=== PATIENT | female | born 1990 | race Caucasian/White ===

== ENCOUNTER 2018-02-06 19:36 | Emergency (ER) | payer OTHER ==
[2018-02-06] MEDS ORDERED: IPRATROPIUM-ALBUTEROL 3 ML NEB INHALATION STA (19:58)
--- NOTE | 2018-02-06 20:03 | ED ---
General Adult HPI - General Source: patient, RN notes reviewed, old records reviewed Mode of arrival: EMS Limitations: no limitations <Denis Duran - Last Filed: 02/06/18 20:32> <Crescencio Boothe - Last Filed: 02/06/18 22:02> - General Chief complaint: Upper Respiratory Infection Stated complaint: bronchitis Time Seen by Provider: 02/06/18 19:39 - History of Present Illness Initial comments: 27-year-old female presents for evaluation of cough and recent diagnosis of bronchitis. She is a current smoker. History is difficult secondary to patient 's mental status. Apparently she initially called Hospital, she spoke with psychiatric nurse who noted some pressured speech and that the patient was incoherent. She was apparently evaluated at several outside hospitals both for mental health and bronchitis. She states her cough is productive of white sputum. No fever. No significant dyspnea or chest pain. Denies suicidal or homicidal ideation. She was previously on Seroquel but has been unable to make an appointment with her psychiatrist. (Denis Duran) - Related Data Home Medications Medication Instructions Recorded Confirmed QUEtiapine FUMARATE [SEROquel] 200 mg PO ONCE 02/06/18 02/06/18 Allergies Allergy/AdvReac Type Severity Reaction Status Date / Time No Known Allergies Allergy Verified 02/06/18 19:51 Review of Systems ROS Other: All systems not noted in ROS Statement are negative. <Denis Duran - Last Filed: 02/06/18 20:32> ROS Other: All systems not noted in ROS Statement are negative. <Crescencio Boothe - Last Filed: 02/06/18 22:02> ROS Statement: Those systems with pertinent positive or pertinent negative responses have been documented in the HPI. Past Medical History Past Medical History: Hypertension Additional Past Medical History / Comment(s): CHRONIC PAIN IN RIGHT LEG - BROKEN AND REPAIRED WITH METAL. History of Any Multi-Drug Resistant Organisms: None Reported Past Surgical History: Orthopedic Surgery Additional Past Surgical History / Comment(s): RIGHT ANKLE/RIGHT LEG Past Anesthesia/Blood Transfusion Reactions: No Reported Reaction Past Psychological History: Anxiety, Bipolar, Depression Smoking Status: Current every day smoker Past Alcohol Use History: Occasional Past Drug Use History: Cocaine, Marijuana, Opiates - Past Family History Father Additional Family Medical History / Comment(s): Father is in his 40s with history of bipolar. He is in [facility] for an armed robbery with also history of alcohol and drug abuse. Brother(s) Additional Family Medical History / Comment(s): Patient has brothers and 2 are incarcerated Mother Family Medical History: Diabetes Mellitus <Denis Duran - Last Filed: 02/06/18 20:32> General Exam Limitations: no limitations General appearance: alert, in no apparent distress Head exam: Present: atraumatic, normocephalic Eye exam: Present: normal appearance, PERRL ENT exam: Present: normal exam Neck exam: Present: normal inspection. Absent: tenderness, meningismus Respiratory exam: Present: wheezes, rhonchi. Absent: respiratory distress, accessory muscle use Cardiovascular Exam: Present: regular rate, normal rhythm GI/Abdominal exam: Present: soft. Absent: distended, tenderness Extremities exam: Present: normal inspection, normal capillary refill. Absent: full ROM, pedal edema, calf tenderness Neurological exam: Present: alert Psychiatric exam: Present: agitated, manic. Absent: suicidal ideation Skin exam: Present: warm, dry, intact. Absent: cyanosis, diaphoretic <Denis Duran - Last Filed: 02/06/18 20:32> Course <Denis Duran - Last Filed: 02/06/18 20:32> <Crescencio Boothe - Last Filed: 02/06/18 22:02> Vital Signs 02/06/18 02/06/18 02/06/18 19:40 20:11 20:19 Temperature 97.3 F L Pulse Rate 68 100 94 Respiratory 20 18 18 Rate Blood Pressure 152/92 O2 Sat by Pulse 98 Oximetry 02/06/18 21:30 Temperature Pulse Rate Respiratory 18 Rate Blood Pressure O2 Sat by Pulse Oximetry - Reevaluation(s) Reevaluation #1: 02/06/18 20:32 Patient continues to have pressured speech, incoherent thoughts. Contact was made with the patient's mother she will present for further information regarding the patient's condition. She will be evaluated by EPS. (Denis Duran) Reevaluation #2: 02/06/18 2100 Patient's care is signed out at shift change awaiting EPS evaluation. (Denis Duran) - Lab Data Lab Results 02/06/18 Range/Units 21:00 Urine Opiates Screen Detected H (NotDetected) Ur Oxycodone Screen Not Detected (NotDetected) Urine Methadone Screen Not Detected (NotDetected) Ur Propoxyphene Screen Not Detected (NotDetected) Ur Barbiturates Screen Not Detected (NotDetected) U Tricyclic Antidepress Not Detected (NotDetected) Ur Phencyclidine Scrn Not Detected (NotDetected) Ur Amphetamines Screen Not Detected (NotDetected) U Methamphetamines Scrn Not Detected (NotDetected) U Benzodiazepines Scrn Not Detected (NotDetected) Urine Cocaine Screen Detected H (NotDetected) U Marijuana (THC) Screen Not Detected (NotDetected) Disposition <Denis Duran - Last Filed: 02/06/18 20:32> Is patient prescribed a controlled substance at d/c from ED?: No <Crescencio Boothe - Last Filed: 02/06/18 22:02> Clinical Impression: Bronchitis, Psychosis Disposition: HOME SELF-CARE Condition: Good Instructions: Upper Respiratory Infection (ED) Referrals: [facility] [Primary Care Provider] - 1-2 days
[2018-02-06 20:14] VITALS: RESP 18
[2018-02-06 21:17] LABS: Amphetamine Screen,Urine Not Detected (NotDetected); Barbiturate Screen,Urine Not Detected (NotDetected); Benzodiazepines Screen,Urine Not Detected (NotDetected); Cocaine Screen,Urine Detected (NotDetected); Methadone Screen, Urine Not Detected (NotDetected); Opiate Screen,Urine Detected (NotDetected); Oxycodone Screen, Urine Not Detected (NotDetected); Phencyclidine Screen,Urine Not Detected (NotDetected); Tricyclic Antidepressant,Urine Not Detected (NotDetected); Urn Cannabinoid Scrn Not Detected (NotDetected)
[2018-02-06 22:26] VITALS: BP 168/99; PULSE 99; TEMP 97.8
== END 2018-02-06 22:25 | disposition home or self-care (01) ==
LOC: EC 19:36
DX: J40 Bronchitis, not specified as acute or chronic (principal); F29 Unspecified psychosis not due to a substance or known physiological condition; F41.9 Anxiety disorder, unspecified; F32.9 Major depressive disorder, single episode, unspecified; F17.200 Nicotine dependence, unspecified, uncomplicated; Z79.899 Other long term (current) drug therapy
CPT/HCPCS: 80306; 82075; 94640; 99284

== ENCOUNTER 2018-03-05 12:32 | Inpatient (IN) | payer MEDICAID, OTHER ==
[2018-03-05 13:58] LABS: Appearance,Urine Cloudy (Clear); Bacteria,Urine Moderate /hpf; Bilirubin,Urine Negative (Negative); Blood,Urine Large (Negative); Color,Urine Light Red; Glucose,Urine (UA) Negative (Negative); Ketones,Urine Negative (Negative); Leukocyte Esterase,Urine Moderate (Negative); Mucus,Urine Many /hpf; Nitrite,Urine Negative (Negative); Protein,Urine 1+ (Negative); RBC,Urine >182 /hpf (0-5); Specific Gravity,Urine 1.018 (1.001-1.035); Squamous Epithelial Cell,Urine 8 /hpf (0-4); Urobilinogen,Urine <2.0 mg/dL (<2.0); WBC,Urine 32 /hpf (0-5)
[2018-03-05 14:10] LABS: Cocaine Screen,Urine Detected (NotDetected); Phencyclidine Screen,Urine Not Detected (NotDetected); Urn Cannabinoid Scrn Not Detected (NotDetected)
[2018-03-05 14:11] LABS: Amphetamine Screen,Urine Detected (NotDetected); Barbiturate Screen,Urine Not Detected (NotDetected); Benzodiazepines Screen,Urine Not Detected (NotDetected); Methadone Screen, Urine Not Detected (NotDetected); Opiate Screen,Urine Not Detected (NotDetected); Oxycodone Screen, Urine Not Detected (NotDetected); Tricyclic Antidepressant,Urine Detected (NotDetected)
[2018-03-05] MEDS ORDERED: LORazepam 1 MG TAB PO STA (14:12)
--- NOTE | 2018-03-05 14:41 | ED ---
General Adult HPI - General Chief complaint: Psychiatric Symptoms Stated complaint: Mental Health Time Seen by Provider: 03/05/18 12:55 Source: patient, RN notes reviewed, old records reviewed Mode of arrival: ambulatory Limitations: no limitations - History of Present Illness Initial comments: This is a 27-year-old female the ER for eval is regarding mental health. Patient having word salad not making sense 7 delusions. Patient is brought in for evaluation regarding psychiatric illness - Related Data Home Medications Medication Instructions Recorded Confirmed Acetaminophen Tab [Tylenol Tab] 650 mg PO Q6H PRN 03/05/18 03/05/18 Cholecalciferol [Vitamin D3] 5,000 unit PO DAILY 03/05/18 03/05/18 Cyanocobalamin [Vitamin B-12 1,000 mcg SQ WEEKLY 03/05/18 03/05/18 Injection] Lisinopril [Zestril] 10 mg PO DAILY 03/05/18 03/05/18 Naproxen 500 mg PO DAILY 03/05/18 03/05/18 Allergies Allergy/AdvReac Type Severity Reaction Status Date / Time No Known Allergies Allergy Verified 03/05/18 12:50 Review of Systems ROS Statement: Those systems with pertinent positive or pertinent negative responses have been documented in the HPI. ROS Other: All systems not noted in ROS Statement are negative. Past Medical History Past Medical History: Hypertension Additional Past Medical History / Comment(s): CHRONIC PAIN IN RIGHT LEG - BROKEN AND REPAIRED WITH METAL. History of Any Multi-Drug Resistant Organisms: None Reported Past Surgical History: Orthopedic Surgery Additional Past Surgical History / Comment(s): RIGHT ANKLE/RIGHT LEG Past Anesthesia/Blood Transfusion Reactions: No Reported Reaction Past Psychological History: Anxiety, Bipolar, Depression Smoking Status: Current every day smoker Past Alcohol Use History: Occasional Past Drug Use History: Cocaine, Marijuana, Opiates - Past Family History Father Additional Family Medical History / Comment(s): Father is in his 40s with history of bipolar. He is in [facility] for an armed robbery with also history of alcohol and drug abuse. Brother(s) Additional Family Medical History / Comment(s): Patient has brothers and 2 are incarcerated Mother Family Medical History: Diabetes Mellitus General Exam Limitations: no limitations General appearance: alert, in no apparent distress Head exam: Present: atraumatic, normocephalic, normal inspection Eye exam: Present: normal appearance, PERRL, EOMI. Absent: scleral icterus, conjunctival injection, periorbital swelling ENT exam: Present: normal exam, mucous membranes moist Neck exam: Present: normal inspection. Absent: tenderness, meningismus, lymphadenopathy Respiratory exam: Present: normal lung sounds bilaterally. Absent: respiratory distress, wheezes, rales, rhonchi, stridor Cardiovascular Exam: Present: regular rate, normal rhythm, normal heart sounds. Absent: systolic murmur, diastolic murmur, rubs, gallop, clicks GI/Abdominal exam: Present: soft, normal bowel sounds. Absent: distended, tenderness, guarding, rebound, rigid Extremities exam: Present: normal inspection, full ROM, normal capillary refill. Absent: tenderness, pedal edema, joint swelling, calf tenderness Back exam: Present: normal inspection Neurological exam: Present: alert, oriented X3, CN II-XII intact Psychiatric exam: Present: normal affect, normal mood Skin exam: Present: warm, dry, intact, normal color. Absent: rash Course Vital Signs 03/05/18 12:32 Temperature 98.3 F Pulse Rate 104 H Respiratory 20 Rate Blood Pressure 142/107 O2 Sat by Pulse 99 Oximetry - Reevaluation(s) Reevaluation #1: 03/05/18 14:40 Medically clear for psychiatric evaluation Medical Decision Making - Medical Decision Making 27 female admitted for psychiatric evaluation and treatment - Lab Data Lab Results 03/05/18 03/05/18 03/05/18 Range/Units 12:35 12:35 12:35 Urine Color Light Red Urine Appearance Cloudy H (Clear) Urine pH 5.0 (5.0-8.0) Ur Specific [place] 1.018 (1.001-1.035) Urine Protein 1+ H (Negative) Urine Glucose (UA) Negative (Negative) Urine Ketones Negative (Negative) Urine Blood Large H (Negative) Urine Nitrite Negative (Negative) Urine Bilirubin Negative (Negative) Urine Urobilinogen <2.0 (<2.0) mg/dL Ur Leukocyte Esterase Moderate H (Negative) Urine RBC >182 H (0-5) /hpf Urine WBC 32 H (0-5) /hpf Urine WBC Clumps Occasional H (None) /hpf Ur Squamous Epith Cells 8 H (0-4) /hpf Urine Bacteria Moderate H (None) /hpf Urine Mucus Many H (None) /hpf Urine HCG, Qual Not Detected (Not Detectd) Urine Opiates Screen Not Detected (NotDetected) Ur Oxycodone Screen Not Detected (NotDetected) Urine Methadone Screen Not Detected (NotDetected) Ur Propoxyphene Screen Not Detected (NotDetected) Ur Barbiturates Screen Not Detected (NotDetected) U Tricyclic Antidepress Detected H (NotDetected) Ur Phencyclidine Scrn Not Detected (NotDetected) Ur Amphetamines Screen Detected H (NotDetected) U Methamphetamines Scrn Detected H (NotDetected) U Benzodiazepines Scrn Not Detected (NotDetected) Urine Cocaine Screen Detected H (NotDetected) U Marijuana (THC) Screen Not Detected (NotDetected) Disposition Clinical Impression: Depression, Acute psychosis Disposition: TRANSFER TO PSYCH HOSP/UNIT Condition: Fair Is patient prescribed a controlled substance at d/c from ED?: No
[2018-03-05 15:35] VITALS: BMI 36.1
[2018-03-05] MEDS ORDERED: MAGNESIUM HYDROXIDE 2,400 MG/10 ML CUP PO PRN (18:09)
[2018-03-05] MEDS ORDERED: ZIPRASIDONE 20 MG VIAL IM PRN (18:09)
[2018-03-05] MEDS ORDERED: LORazepam 2 MG/ML INJ IM PRN (18:12)
[2018-03-05] MEDS: LORazepam 1 MG TAB PO PRN (20:18)
[2018-03-05] MEDS ORDERED: ZIPRASIDONE 20 MG CAP PO STA ×2 (23:03)
[2018-03-06] MEDS: ACETAMINOPHEN TAB 325 MG TAB PO PRN (01:17)
[2018-03-06 09:21] LABS: Basophils % (A) 0 %; Eosinophils # (A) 0.3 k/uL (0-0.7); Eosinophils % (A) 4 %; HCT 38.5 % (34.0-46.0); HGB 12.7 gm/dL (11.4-16.0); Lymphocytes # (A) 2.2 k/uL (1.0-4.8); Lymphocytes % (A) 29 %; MCH 28.9 pg (25.0-35.0); MCHC 32.9 g/dL (31.0-37.0); MCV 87.9 fL (80.0-100.0); Mean Platelet Volume 7.3; Monocytes # (A) 0.3 k/uL (0-1.0); Monocytes % (A) 5 %; Neutrophils # (A) 4.5 k/uL (1.3-7.7); Neutrophils % (A) 60 %; Platelet Count 221 k/uL (150-450); RBC 4.38 m/uL (3.80-5.40); RDW 14.1 % (11.5-15.5); WBC 7.4 k/uL (3.8-10.6)
[2018-03-06 09:24] LABS: ALT 24 U/L (9-52); AST 23 U/L (14-36); Albumin 3.8 g/dL (3.5-5.0); Alkaline Phosphatase 66 U/L (38-126); Anion Gap 5 mmol/L; Blood Urea Nitrogen 18 mg/dL (7-17); Calcium 9.1 mg/dL (8.4-10.2); Carbon Dioxide 27 mmol/L (22-30); Chloride 108 mmol/L (98-107); Glucose 89 mg/dL (74-99); Potassium 4.4 mmol/L (3.5-5.1); Sodium 140 mmol/L (137-145); Total Bilirubin 0.2 mg/dL (0.2-1.3); Total Protein 6.3 g/dL (6.3-8.2)
[2018-03-06] MEDS: CHOLECALCIFEROL 1,000 UNIT TAB PO SCH (11:34)
[2018-03-06] MEDS: NAPROXEN 250 MG TAB PO SCH (11:34)
[2018-03-06] MEDS: LISINOPRIL 10 MG TAB PO SCH (11:35)
[2018-03-06] MEDS: NICOTINE 14MG/24HR PATCH TRANSDERM SCH (11:35)
[2018-03-06] MEDS: LORazepam 1 MG TAB PO PRN ×2 (14:14→21:12)
--- NOTE | 2018-03-06 15:06 | P.HP ---
Psychiatric H&P - . H&P Date: 03/06/18 History & Physical: Allergies Allergy/AdvReac Type Severity Reaction Status Date / Time No Known Allergies Allergy Verified 03/05/18 15:53 Vital Signs Temp 97.0 F L 03/05/18 15:22 Pulse 87 03/05/18 15:22 Resp 20 03/05/18 15:22 BP 132/87 03/05/18 15:22 Pulse Ox 99 03/05/18 15:22 Intake & Output 03/05/18 03/06/18 03/06/18 18:59 06:59 18:59 Weight 111.13 kg Laboratory Last Values WBC 7.4 k/uL (3.8-10.6) 03/06/18 08:27 RBC 4.38 m/uL (3.80-5.40) 03/06/18 08:27 Hgb 12.7 gm/dL (11.4-16.0) 03/06/18 08:27 Hct 38.5 % (34.0-46.0) 03/06/18 08:27 MCV 87.9 fL (80.0-100.0) 03/06/18 08:27 MCH 28.9 pg (25.0-35.0) 03/06/18 08:27 MCHC 32.9 g/dL (31.0-37.0) 03/06/18 08:27 RDW 14.1 % (11.5-15.5) 03/06/18 08:27 Plt Count 221 k/uL (150-450) 03/06/18 08:27 Neutrophils % 60 % 03/06/18 08:27 Lymphocytes % 29 % 03/06/18 08:27 Monocytes % 5 % 03/06/18 08:27 Eosinophils % 4 % 03/06/18 08:27 Basophils % 0 % 03/06/18 08:27 Neutrophils # 4.5 k/uL (1.3-7.7) 03/06/18 08:27 Lymphocytes # 2.2 k/uL (1.0-4.8) 03/06/18 08:27 Monocytes # 0.3 k/uL (0-1.0) 03/06/18 08:27 Eosinophils # 0.3 k/uL (0-0.7) 03/06/18 08:27 Basophils # 0.0 k/uL (0-0.2) 03/06/18 08:27 Sodium 140 mmol/L (137-145) 03/06/18 08:27 Potassium 4.4 mmol/L (3.5-5.1) 03/06/18 08:27 Chloride 108 mmol/L (98-107) H 03/06/18 08:27 Carbon Dioxide 27 mmol/L (22-30) 03/06/18 08:27 Anion Gap 5 mmol/L 03/06/18 08:27 BUN 18 mg/dL (7-17) H 03/06/18 08:27 Creatinine 0.91 mg/dL (0.52-1.04) 03/06/18 08:27 Est GFR (CKD-EPI)AfAm >90 (>60 ml/min/1.73 sqM) 03/06/18 08:27 Est GFR (CKD-EPI)NonAf 87 (>60 ml/min/1.73 sqM) 03/06/18 08:27 Glucose 89 mg/dL (74-99) 03/06/18 08:27 Calcium 9.1 mg/dL (8.4-10.2) 03/06/18 08:27 Total Bilirubin 0.2 mg/dL (0.2-1.3) 03/06/18 08:27 AST 23 U/L (14-36) 03/06/18 08:27 ALT 24 U/L (9-52) 03/06/18 08:27 Alkaline Phosphatase 66 U/L (38-126) 03/06/18 08:27 Total Protein 6.3 g/dL (6.3-8.2) 03/06/18 08:27 Albumin 3.8 g/dL (3.5-5.0) 03/06/18 08:27 TSH 2.310 mIU/L (0.465-4.680) 03/06/18 08:27 Urine Color Light Red 03/05/18 12:35 Urine Appearance Cloudy (Clear) H 03/05/18 12:35 Urine pH 5.0 (5.0-8.0) 03/05/18 12:35 Ur Specific [place] 1.018 (1.001-1.035) 03/05/18 12:35 Urine Protein 1+ (Negative) H 03/05/18 12:35 Urine Glucose (UA) Negative (Negative) 03/05/18 12:35 Urine Ketones Negative (Negative) 03/05/18 12:35 Urine Blood Large (Negative) H 03/05/18 12:35 Urine Nitrite Negative (Negative) 03/05/18 12:35 Urine Bilirubin Negative (Negative) 03/05/18 12:35 Urine Urobilinogen <2.0 mg/dL (<2.0) 03/05/18 12:35 Ur Leukocyte Esterase Moderate (Negative) H 03/05/18 12:35 Urine RBC >182 /hpf (0-5) H 03/05/18 12:35 Urine WBC 32 /hpf (0-5) H 03/05/18 12:35 Urine WBC Clumps Occasional /hpf (None) H 03/05/18 12:35 Ur Squamous Epith Cells 8 /hpf (0-4) H 03/05/18 12:35 Urine Bacteria Moderate /hpf (None) H 03/05/18 12:35 Urine Mucus Many /hpf (None) H 03/05/18 12:35 Urine HCG, Qual Not Detected (Not Detectd) 03/05/18 12:35 Urine Opiates Screen Not Detected (NotDetected) 03/05/18 12:35 Ur Oxycodone Screen Not Detected (NotDetected) 03/05/18 12:35 Urine Methadone Screen Not Detected (NotDetected) 03/05/18 12:35 Ur Propoxyphene Screen Not Detected (NotDetected) 03/05/18 12:35 Ur Barbiturates Screen Not Detected (NotDetected) 03/05/18 12:35 U Tricyclic Antidepress Detected (NotDetected) H 03/05/18 12:35 Ur Phencyclidine Scrn Not Detected (NotDetected) 03/05/18 12:35 Ur Amphetamines Screen Detected (NotDetected) H 03/05/18 12:35 U Methamphetamines Scrn Detected (NotDetected) H 03/05/18 12:35 U Benzodiazepines Scrn Not Detected (NotDetected) 03/05/18 12:35 Urine Cocaine Screen Detected (NotDetected) H 03/05/18 12:35 U Marijuana (THC) Screen Not Detected (NotDetected) 03/05/18 12:35 07/19/18 14:57 Identification: Patient is a 27-year-old female who was brought to the hospital after she presented to [facility] yesterday manic, loud and angry. 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 Patient was difficult to interview and was difficult to obtain history. Patient states that she lives with her mother and lost her job at [employer] and was fired and states that it's due to the fact that no one there respected her. Patient states that she's been on Seroquel in the past but discontinued it over a year ago. She then went on to discuss an incident that occurred a month ago when she was in her van with 2 friends and the police stopped them and searched car and found drugs from her friends. Patient was unable to give an accurate history but stated that she is not hearing voices, not seeing things and is not paranoid but does think that people are whispering behind her back. She states she has not been sleeping much but has been eating. Patient states that she rarely uses marijuana or methamphetamine and then stated that she had [place] methamphetamine for 3-4 days and had only use cocaine once in the past. She then went on to tell me that if the marijuana didn't show up in her urine drug screening she would begin smoking that daily as she has in the past. She states she stopped doing it daily because she got a job. Past Psychiatric History: Patient was admitted here in 2016 for a similar presentation secondary to drug use. At that time she was started on Depakote and Seroquel. Past Medical/Surgical History: Patient states she has hypertension and has had surgery on her right ankle Family History: Patient states that his mother is depressed and she has a maternal uncle and her father are alcohol users she denies any completed suicides in the family Social History: Patient was born and raised in [place] and her parents were never and are alive she was raised by her mother and stepfather. States she has 4 half-brothers and 2 half-sisters and one stepsister. She completed high school and obtained an AA degree. She is never been has no children. She states she was living with her mother and working at [employer] until she was fired. She denied any abuse history Substance Use History: Patient states that she rarely uses alcohol and states that she now rarely smokes marijuana but did smoke daily in the past. Patient states that she uses methamphetamine but hasn't for the last 3-4 days and stated that she only used cocaine once in the past. She denied any other drug use and no IV drug use patient does use tobacco products. Legal History: Patient states she was arrested as a minor for drinking under age Mental status: Appearance/Attitude: Patient is dressed in a hospital gown, held a book open and was attempting to read it during our interview, she made intermittent eye contact and was cooperative Behavior: Patient did not exhibit any psychomotor agitation or retardation was able to sit during the interview calmly. Speech/Language: Patient's speech was pressured, of normal volume and she was coherent Thought Process: Patient exhibited tangential thought, and would randomly jump from one topic to another and was difficult to redirect Thought Content: Patient denied auditory or visual hallucinations and no delusions were elicited although the patient did state she was paranoid that people were whispering behind her back. Patient states that she is rarely been sleeping but has been eating at home. Suicidal/Homicidal Ideation: Patient denies any current suicidal or homicidal ideation Sensorium/Cognition: Patient is alert and oriented to person, place, and time and her recent and remote memory were not formally tested Mood/Affect: Patient's mood was labile, irritable and her affect is appropriate to her mood Insight/Judgment: Patient's insight and judgment are limited Intellectual Functioning: Patient's intellectual functioning appears average Strength/Weakness: Patient has housing, had a job/lack of compliance with medication Assessment: Patient presented to the [facility] where she had called for an appointment and had been seen once recently, she arrived there yesterday and was loud angry and brought to the hospital. Patient states that after her discharge in 2016 she continued on the Seroquel for one year and then stopped it. Patient states that she's been using methamphetamine and marijuana as an outpatient. Patient states she did get angry there yesterday and then blew up at [facility]. Patient presented here in 2016 with a similar presentation and at that time was also using drugs. Patient was agitated and received Ativan and Geodon in the emergency room. Admission Diagnosis: Amphetamine induced mood disorder, with use disorder; rule out bipolar disorder; amphetamine use disorder Plan: Patient was admitted on a voluntary basis, placed on routine observation in group and activity therapy were ordered. Patient had routine laboratory studies and a medical consultation. I discussed with the patient various medication options and she declined anything but Seroquel. She states that she was on 200 mg of Seroquel in the past and does not wish to be on that much right away. She was agreeable to beginning Seroquel 150 mg at bedtime. Patient was encouraged to attend groups and activities. Patient requires hospitalization to further stabilize her mood.
[2018-03-06] MEDS: QUEtiapine 100 MG TAB PO SCH (21:11)
[2018-03-07] MEDS: LORazepam 1 MG TAB PO PRN ×2 (05:06→11:35)
[2018-03-07] MEDS: NICOTINE 14MG/24HR PATCH TRANSDERM SCH (08:35)
[2018-03-07] MEDS: NAPROXEN 250 MG TAB PO SCH (08:35)
[2018-03-07] MEDS: CHOLECALCIFEROL 1,000 UNIT TAB PO SCH (08:35)
[2018-03-07] MEDS: LISINOPRIL 10 MG TAB PO SCH (08:36)
--- NOTE | 2018-03-07 11:01 | P.PN ---
Progress Note - Text Interval history: The patient approaches my office door to speak. The psychiatric evaluation no was reviewed. She was admitted for manic like symptoms in the context of recent use of cocaine and methamphetamine. Staff report that the patient has been agitated this morning and has been verbally aggressive not physically aggressive. The patient was placed on Seroquel last evening as she had been on that medication in the past area she states that she is frustrated that she can't be discharged any sooner than Saturday. She demonstrated some disorganization of thought and spontaneously spoke about several different topics. Ultimately she got up and calmly left the office terminating the interview. Mental status exam: The patient is a tall obese female appearing her stated age. She has a disheveled appearance hygiene is adequate she is dressed in her own clothing. Eye contact is appropriate speech is spontaneous fluent she is verbose mildly pressured at times. She describes suboptimal insight into her current situation and believe she no longer requires treatment on the mental health unit. She is reporting no thoughts of harming herself or others. She states that she previously had thoughts of harming others nonspecifically but those have resolved. Again thought process is not well organized she demonstrates some tangential thinking. She demonstrates no abnormal involuntary movements. She demonstrated no verbal or physical aggressiveness during our interaction. Again she did abbreviate the session by calmly leaving. Plan: The patient will continue on the Seroquel as written. We will monitor her for safety and encourage her appropriate participation in the milieu. It is likely that the substance use caused/exacerbated mood symptoms and we would expect symptoms to improve over the weekend. We'll titrate the Seroquel as needed. Vital signs reviewed.
--- NOTE | 2018-03-07 13:03 | P.CONS ---
History of Present Illness - Reason for Consult Consult date: 03/06/18 - Chief Complaint Mental health evaluation - History of Present Illness This is a 27-year-old female the ER for eval is regarding mental health. Patient having word salad not making sense 7 delusions. Patient is brought in for evaluation regarding psychiatric illness; patient does have a past medical history of hypertension G degenerative joint disease vitamin D deficiency and vitamin D deficiency Review of Systems Constitutional: Reports anorexia, Reports daytime sleepiness Eyes: denies blurred vision Ears, nose, mouth and throat: Reports dysphagia, Reports sore throat Cardiovascular: Denies chest pain Respiratory: Reports cough Gastrointestinal: Reports nausea, Denies abdominal pain, Denies vomiting Genitourinary: Denies dysuria, Denies nocturia Musculoskeletal: Reports muscle cramps Integumentary: Denies color changes, Denies sores Neurological: Denies double vision, Denies seizures Psychiatric: Reports anxiety, Reports confusion Endocrine: Denies cold intolerance, Denies heat intolerance Hematologic/Lymphatic: Denies easy bleeding Past Medical History Past Medical History: Hypertension Additional Past Medical History / Comment(s): CHRONIC PAIN IN RIGHT LEG/ankle - BROKEN AND REPAIRED WITH METAL; "Dislocated disc" w/lower back & bilat. hip pain. History of Any Multi-Drug Resistant Organisms: None Reported Past Surgical History: Orthopedic Surgery Additional Past Surgical History / Comment(s): RIGHT ANKLE/RIGHT LEG Past Anesthesia/Blood Transfusion Reactions: No Reported Reaction Past Psychological History: Anxiety, Bipolar, Depression Smoking Status: Current every day smoker Past Alcohol Use History: Occasional Additional Past Alcohol Use History / Comment(s): He is currently a smoker one pack per day and has been smoking since she was 17 years of age. She states she uses marijuana occasionally and trying to get a medical marijuana card. She states she does not use cocaine on a regular basis nor does she use opiates on a regular basis. She does not have any children. She has 3 dogs at home. drinks 1/5 alcohol every day on weekends Past Drug Use History: Cocaine, Marijuana, Methamphetamine, Opiates Additional Drug Use History / Comment(s): Pt. states she drinks alcohol on ocassion and usually drinks 2 or 3 beers; She's been abusing methamphetamines for the last month, crack cocaine for the last 4 months, drank alcohol heavily from 18 yrs. old until she was 25 yrs. old, so only drinks ocassionally for the last two years. - Past Family History Father Additional Family Medical History / Comment(s): Father is in his 40s with history of bipolar. He is in halfway for an armed robbery with also history of alcohol and drug abuse. Brother(s) Additional Family Medical History / Comment(s): Patient has brothers and 2 are incarcerated Mother Family Medical History: Diabetes Mellitus Medications and Allergies Home Medications Medication Instructions Recorded Confirmed Type Acetaminophen Tab [Tylenol Tab] 650 mg PO Q6H PRN 03/05/18 03/05/18 History Cholecalciferol [Vitamin D3] 5,000 unit PO DAILY 03/05/18 03/05/18 History Cyanocobalamin [Vitamin B-12 1,000 mcg SQ WEEKLY 03/05/18 03/05/18 History Injection] Lisinopril [Zestril] 10 mg PO DAILY 03/05/18 03/05/18 History Naproxen 500 mg PO DAILY 03/05/18 03/05/18 History Allergies Allergy/AdvReac Type Severity Reaction Status Date / Time No Known Allergies Allergy Verified 03/05/18 15:53 Physical Exam Vitals: Vital Signs Temp Pulse Pulse Resp BP BP Pulse Ox 03/05/18 15:22 97.0 F L 87 20 132/87 99 03/05/18 12:32 98.3 F 104 H 20 142/107 99 Intake and Output 03/05/18 03/06/18 03/06/18 22:59 06:59 14:59 Other: Weight 111.13 kg - Constitutional General appearance: Present: average body habitus, cooperative, no acute distress - EENT Eyes: Present: anicteric sclerae, EOMI, PERRLA, normal appearance ENT: Present: hearing grossly normal, normal oropharynx Ears: bilateral: normal - Neck Neck: Present: normal ROM. Absent: lymphadenopathy, rigidity, thyromegaly Carotids: negative: bruit present Thyroid: bilateral: normal size, negative: enlarged, nodule - Respiratory Respiratory: bilateral: CTA, negative: rales, rhonchi, wheezing - Cardiovascular Rhythm: regular Heart sounds: normal: S1, S2 Abnormal Heart Sounds: Absent: systolic murmur, diastolic murmur - Gastrointestinal General gastrointestinal: Present: normal bowel sounds, soft. Absent: distended , organomegaly, tenderness - Genitourinary Genitourinary Comment(s): deferred - Integumentary Integumentary: Present: normal turgor. Absent: jaundiced, rash, ulcer - Neurologic Neurologic: Present: CNII-XII intact. Absent: focal deficits - Musculoskeletal Musculoskeletal: Present: gait normal, strength equal bilaterally - Psychiatric Psychiatric: Present: A&O x's 3, appropriate affect, intact judgment & insight Results CBC & Chem 7: 03/06/18 08:27 03/06/18 08:27 Labs: Abnormal Lab Results - Last 24 Hours (Table) 03/05/18 03/05/18 03/06/18 Range/Units 12:35 12:35 08:27 Chloride 108 H (98-107) mmol/L BUN 18 H (7-17) mg/dL Urine Appearance Cloudy H (Clear) Urine Protein 1+ H (Negative) Urine Blood Large H (Negative) Ur Leukocyte Esterase Moderate H (Negative) Urine RBC >182 H (0-5) /hpf Urine WBC 32 H (0-5) /hpf Urine WBC Clumps Occasional H (None) /hpf Ur Squamous Epith Cells 8 H (0-4) /hpf Urine Bacteria Moderate H (None) /hpf Urine Mucus Many H (None) /hpf U Tricyclic Antidepress Detected H (NotDetected) Ur Amphetamines Screen Detected H (NotDetected) U Methamphetamines Scrn Detected H (NotDetected) Urine Cocaine Screen Detected H (NotDetected) Assessment and Plan Assessment: 1. Hypertension 2. Degenerative joint disease 3. Vitamin B12 deficiency 4. Vitamin D deficiency Patient takes lisinopril 10 mg daily we will continue that for blood pressure control; patient is supposed to have vitamin B12 1000 MCG weekly; we will order patient is in the hospital for greater than of weeks duration; we will continue on current medications and follow the patient with you
[2018-03-07] MEDS: MAG HYDROX/AL HYDROX/SIMETH 30 ML CUP PO PRN (15:38)
[2018-03-07] MEDS: QUEtiapine 100 MG TAB PO SCH (21:00)
[2018-03-08] MEDS: LORazepam 1 MG TAB PO PRN ×3 (00:18→22:35)
[2018-03-08] MEDS: NICOTINE 14MG/24HR PATCH TRANSDERM SCH (08:00)
[2018-03-08] MEDS: NAPROXEN 250 MG TAB PO SCH (08:00)
[2018-03-08] MEDS: LISINOPRIL 10 MG TAB PO SCH (08:00)
[2018-03-08] MEDS: CHOLECALCIFEROL 1,000 UNIT TAB PO SCH (11:27)
--- NOTE | 2018-03-08 12:23 | P.PN ---
Progress Note - Text Interval history: The patient is found in the hallway she follows me to an interview room. She reports that she wants to be discharged Saturday. She has her recipient rights booklet with her and review several pages with me. She asked questions about her voluntary status. We reviewed her medication. She is agreeable to having me increase her Seroquel. She reports that she slept well last night appetite is stable. She states she intends on attending groups as she knows that's what helps her get discharged Mental status exam: The patient is an obese female she seated calmly. She is quite verbose. She is redirectable. She describes some frustration that she is in the hospital but states she plans on going to groups and keeping her cool so she can be discharged. She is reporting no suicidal or homicidal thoughts. She is reporting no auditory or visual hallucinations she is endorsing no specific delusions. She does appear pressured thought process can be tangential at times there are other times where she can be linear is well. She demonstrates no verbal or physical aggressiveness. Insight and judgment are limited. Plan: The patient Seroquel be increased to 200 mg twice daily. Today she will receive 100 mg now and we will begin to 200 mg twice a day starting this evening. We will monitor her for safety and encourage her participation in the milieu. She requires continued psychiatric hospitalization at this time.
[2018-03-08] MEDS: QUEtiapine 100 MG TAB PO SCH (12:24)
[2018-03-08] MEDS: ACETAMINOPHEN TAB 325 MG TAB PO PRN (14:09)
[2018-03-08] MEDS: CEPHALEXIN 500 MG CAP PO SCH ×2 (14:09→20:04)
[2018-03-08] MEDS: QUEtiapine 200 MG TAB PO SCH (20:04)
[2018-03-09] MEDS: ACETAMINOPHEN TAB 325 MG TAB PO PRN (00:03)
[2018-03-09] MEDS: NAPROXEN 250 MG TAB PO SCH (08:43)
[2018-03-09] MEDS: LISINOPRIL 10 MG TAB PO SCH (08:45)
[2018-03-09] MEDS: CHOLECALCIFEROL 1,000 UNIT TAB PO SCH (08:45)
[2018-03-09] MEDS: QUEtiapine 100 MG TAB PO SCH (08:46)
[2018-03-09] MEDS: NICOTINE 14MG/24HR PATCH TRANSDERM SCH (08:48)
[2018-03-09] MEDS: QUEtiapine 200 MG TAB PO SCH ×2 (08:48→20:36)
[2018-03-09] MEDS: CEPHALEXIN 500 MG CAP PO SCH ×2 (08:48→20:36)
[2018-03-09] MEDS: LORazepam 1 MG TAB PO PRN ×2 (08:48→18:35)
--- NOTE | 2018-03-09 12:20 | P.PN ---
Progress Note - Text Interval history: The patient is found in her room she follows me to an interview room. She has written me a letter explaining that she is here because her worker thought she was going to hurt others. He states she does not have that intent. She states in her letter she is taking her medications eating and going to some groups. She has no questions or concerns regarding her Seroquel. Staff report no agitated behavior. Mental status exam: The patient is an overweight female. She has a disheveled appearance she is dressed in pajama-type clothing. Eye contact is intermittent. She completes writing her letter to me during our conversation. In general the patient can be defensive and confrontational during the conversation but she demonstrated no verbal or physical aggressiveness. She is reporting no suicidal or homicidal ideation intent or plan. She is endorsing no auditory or visual hallucinations or specific delusions. Insight and judgment chronically limited. She demonstrates no tangential thinking this associations or flight of ideas. Plan: The patient will continue on her current medication we'll monitor for safety. We will discuss her progress during the next treatment team meeting to see if she is approximating her baseline. Vital signs reviewed. She is encouraged to properly participate in the milieu.
[2018-03-10] MEDS: LORazepam 1 MG TAB PO PRN ×3 (04:49→21:40)
[2018-03-10] MEDS: ACETAMINOPHEN TAB 325 MG TAB PO PRN ×3 (04:49→23:31)
[2018-03-10] MEDS: NICOTINE 14MG/24HR PATCH TRANSDERM SCH (08:24)
[2018-03-10] MEDS: QUEtiapine 200 MG TAB PO SCH ×2 (08:24→21:39)
[2018-03-10] MEDS: CHOLECALCIFEROL 1,000 UNIT TAB PO SCH (08:24)
[2018-03-10] MEDS: CEPHALEXIN 500 MG CAP PO SCH ×2 (08:25→21:39)
[2018-03-10] MEDS: LISINOPRIL 10 MG TAB PO SCH (08:25)
[2018-03-10] MEDS: NAPROXEN 250 MG TAB PO SCH (08:25)
--- NOTE | 2018-03-10 11:04 | P.PN ---
Progress Note - Text Interval history: The patient is found in the hallway. She was quite intrusive this morning and approach my office several times. Staff report that the patient has been more agitated hyperverbal. The patient is demanding to be discharged today. I discussed with her that her mood is not sufficiently stabilized and we need to continue working on her treatment plan regarding her medicine. She states that she would like to go on a monthly injection as she felt that was helpful in the past. Me mental health records were reviewed and it appears that she was most recently on Abilify maintena and she was on that for several months. She was agreeable to having a start the medication orally before initiating the injectable form. Mental status exam: The patient is an overweight female she is dressed in her own clothing hygiene is adequate she has a disheveled appearance. She is agitated today she becomes loud she describes an irritable affect. She demands to be discharged. She demonstrates some disorganization of her thoughts. She has been confrontational with other peers at times and has required redirection. She is reporting no thoughts of harming herself or others. She is endorsing no hallucinations but she is not a valid historian at this time. Insight and judgment are impaired. Affect is labile during the session demonstrating irritability agitation and tearfulness at different times. Plan: The patient will continue on the Seroquel 200 mg at bedtime we will initiate oral Abilify 10 mg today. Assuming she tolerates the medication well we will initiate the Abilify maintena. She is not appropriate for discharge at this time and we would expect her to further decompensate if discharged now. We will monitor her for safety and provide reality orientation when possible.
[2018-03-10] MEDS: ARIPiprazole 10 MG TAB PO SCH (11:07)
[2018-03-11] MEDS: MAG HYDROX/AL HYDROX/SIMETH 30 ML CUP PO PRN ×2 (00:36→19:57)
[2018-03-11] MEDS: CHOLECALCIFEROL 1,000 UNIT TAB PO SCH (08:11)
[2018-03-11] MEDS: ARIPiprazole 10 MG TAB PO SCH (08:13)
[2018-03-11] MEDS: LISINOPRIL 10 MG TAB PO SCH (08:13)
[2018-03-11] MEDS: CEPHALEXIN 500 MG CAP PO SCH ×2 (08:13→19:57)
[2018-03-11] MEDS: NAPROXEN 250 MG TAB PO SCH (08:13)
[2018-03-11] MEDS: NICOTINE 14MG/24HR PATCH TRANSDERM SCH (08:13)
--- NOTE | 2018-03-11 10:02 | P.PN ---
Progress Note - Text Interval history: The patient is found in group she follows me to an interview room. Earlier this morning she had knocked on the door to speak with me and later slit a piece of paper under the door with various phone numbers written on it. The patient reports she feels tired. She states that she received injectable medication last evening. We discussed a plan of transitioning to Abilify maintena and she is agreeable. It appears that the support meeting with her mother did not go well and was terminated fairly quickly. Mental status exam: The patient is an obese female appearing her stated age. She is dressed in her own clothing she has a disheveled appearance. Eye contact is appropriate. She demonstrates some continued disorganization of thought. She is very direct and confrontational in conversation at times. She demonstrates no verbal or physical aggressiveness during the session. Insight and judgment are impaired. She is reporting no thoughts of harming herself or others. She reporting no auditory or visual hallucinations or specific delusions. The tone of her voice does fluctuate during the course of the interview but she does not become loud. She demonstrates no abnormal involuntary movements. She is yawning throughout the session. She describes feeling irritated due to the rules on the mental health unit. Plan: The patient will continue on the oral Abilify we will initiate the Abilify maintena 400 mg today. We will monitor her for safety and encourage her participation in the milieu. She states that she withdrew her voluntary status. We will continue to assess her daily for safety. Vital signs reviewed.
[2018-03-11] MEDS ORDERED: ARIPiprazole 400 MG VIAL (NO CHARGE) IM ONE (10:30)
[2018-03-11] MEDS: LORazepam 1 MG TAB PO PRN (16:13)
[2018-03-11] MEDS: QUEtiapine 200 MG TAB PO SCH (19:57)
[2018-03-12] MEDS: ACETAMINOPHEN TAB 325 MG TAB PO PRN ×3 (02:52→21:07)
[2018-03-12] MEDS: LORazepam 1 MG TAB PO PRN ×3 (02:53→21:07)
[2018-03-12] MEDS: NICOTINE 14MG/24HR PATCH TRANSDERM SCH (08:17)
[2018-03-12] MEDS: LISINOPRIL 10 MG TAB PO SCH (08:17)
[2018-03-12] MEDS: ARIPiprazole 10 MG TAB PO SCH (08:18)
[2018-03-12] MEDS: NAPROXEN 250 MG TAB PO SCH (08:18)
[2018-03-12] MEDS: CEPHALEXIN 500 MG CAP PO SCH ×2 (08:18→21:06)
[2018-03-12] MEDS: CHOLECALCIFEROL 1,000 UNIT TAB PO SCH (08:18)
[2018-03-12] MEDS ORDERED: ARIPiprazole 5 MG TAB PO ONE (09:49)
--- NOTE | 2018-03-12 09:53 | P.PN ---
Progress Note - Text Interval history: The patient is found in the hallway she follows me to an interview room. She reports that she feels more irritable today. She states that she is doing her best to control her behavior. She would like to be discharged as soon as possible. Again she did sign a notice withdrawing her voluntary status which will Saturday. We discussed her medications in detail. She complied with the Abilify maintena. We discussed titrating the oral dose further until the Abilify maintena has had time to reach steady state. Mental status exam: The patient is a tall overweight female. She has adequate hygiene grooming. Eye contact is appropriate. Speech is spontaneous she is verbose she is often intrusive and speech. She was more redirectable today when asked to just listen so I could finish my statement. She is reporting no suicidal or homicidal ideation. She demonstrates continued affect lability but is not tearful today. She is verbalizing no auditory or visual hallucinations she is describing no specific delusions. Insight and judgment limited. Plan: The patient will continue on her current medication however I will titrate the Abilify to 15 mg daily temporarily. We will monitor her for safety and encourage her participation in the milieu. We're looking for further stabilization of mood prior to discharge. She may be appropriate for discharge by the end of the week if she demonstrates sufficient improvement.
[2018-03-12] MEDS ORDERED: FLUCONAZOLE 150 MG TAB PO STA (12:40)
[2018-03-12] MEDS: QUEtiapine 200 MG TAB PO SCH (21:06)
[2018-03-13] MEDS ORDERED: ACETAMINOPHEN TAB 325 MG TAB ONE (04:19)
[2018-03-13] MEDS: LORazepam 1 MG TAB PO PRN ×2 (06:44→19:52)
[2018-03-13] MEDS: NICOTINE 14MG/24HR PATCH TRANSDERM SCH (08:18)
[2018-03-13] MEDS: CHOLECALCIFEROL 1,000 UNIT TAB PO SCH (08:19)
[2018-03-13] MEDS: LISINOPRIL 10 MG TAB PO SCH (08:19)
[2018-03-13] MEDS: ARIPiprazole 15 MG TAB PO SCH (08:19)
[2018-03-13] MEDS: NAPROXEN 250 MG TAB PO SCH ×2 (08:19→19:52)
[2018-03-13] MEDS: CEPHALEXIN 500 MG CAP PO SCH ×2 (08:19→19:53)
--- NOTE | 2018-03-13 11:02 | P.PN ---
Progress Note - Text Interval history: The patient is found in the [facility] she follows me to an interview room. Staff report that the patient still demonstrates some lability the patient is making an effort to control her verbal expressions. The patient has been attempting group participation. She has been more directable. She reports sleeping at night appetite stable. Her goal is to be discharged and we discussed treatment goals while she is here. Mental status exam: The patient is an obese female appearing her stated age. She demonstrates appropriate hygiene grooming is adequate. She is dressed in her own clothing. Eye contact is appropriate. Speech is spontaneous fluent nonpressured. She is verbose. She can be intrusive in conversation but she can be redirected as well. She is reporting no suicidal or homicidal ideation intent or plan. She is reporting no auditory or visual hallucinations or specific delusions. She demonstrates no verbal or physical aggressiveness. Insight is slowly improving. She remains oriented to person place and date. Plan: The patient's will continue on her current psychotropic medication. We will monitor her for safety and encourage her appropriate participation in the milieu. If she demonstrated sufficient clinical stability/improvement we will consider discharging her tomorrow. Vital signs reviewed.
[2018-03-13] MEDS: MAG HYDROX/AL HYDROX/SIMETH 30 ML CUP PO PRN (13:33)
[2018-03-13] MEDS: QUEtiapine 200 MG TAB PO SCH (19:52)
[2018-03-14] MEDS: ACETAMINOPHEN TAB 325 MG TAB PO PRN (06:49)
[2018-03-14 07:13] VITALS: BP 147/70; PULSE 96; RESP 16; TEMP 98.1
[2018-03-14] MEDS: CEPHALEXIN 500 MG CAP PO SCH (08:03)
[2018-03-14] MEDS: NICOTINE 14MG/24HR PATCH TRANSDERM SCH (08:03)
[2018-03-14] MEDS: ARIPiprazole 15 MG TAB PO SCH (08:03)
[2018-03-14] MEDS: CHOLECALCIFEROL 1,000 UNIT TAB PO SCH (08:04)
[2018-03-14] MEDS: LISINOPRIL 10 MG TAB PO SCH (08:04)
[2018-03-14] MEDS: NAPROXEN 250 MG TAB PO SCH (08:04)
[2018-03-14] MEDS: LORazepam 1 MG TAB PO PRN (08:04)
--- NOTE | 2018-03-14 08:58 | P.DS ---
Providers Date of admission: 03/05/18 14:27 Expected date of discharge: 03/14/18 Attending physician: Benjy Mendez Consults: 03/05/18 18:09 Consult Physician Routine Consulting Provider: Lucina Abraham Consult Reason/Comments: follow up H & P Do you want consulting provider notified?: Yes Primary care physician: Ivania Camejo - Discharge Diagnosis(es) (1) Unspecified mood [affective] disorder Current Visit: Yes Status: Acute Priority: High (2) Methamphetamine use disorder, moderate Current Visit: Yes Status: Acute Priority: High Hospital Course: Recently admission note: This patient is a 27-year-old single female who was admitted to the hospital through the emergency room for acute agitated behavior. She reported she had not been sleeping. She did have cocaine and methamphetamine in her urine drug screen. He was sent from the outpatient office as she presented there are loud and angry. For full details please refer to the psychiatric evaluation dated 03/06/2018. Summary of hospital course: The patient was admitted to the mental health unit she did sign in voluntarily. We reviewed her presenting symptoms and medication options. Initially the patient was quite agitated she did not tolerate a full interview. She was only willing to comply with Seroquel. We used a bedtime dosing and then later added a twice daily dosing to try to calm her agitation. This seemed to be less effective and we discussed other options. She was agreeable to going back on an injectable Depo mood stabilizer and we discussed using Abilify maintena. Outpatient psychiatric records were reviewed and it seemed that she had been most recently on Abilify maintena for several months. The Seroquel dosing during the day was discontinued Abilify was initiated he was later given the Abilify maintena injection of 400 mg IM. We have maintain the 200 mg Seroquel that this may likely be transitioned off in the outpatient setting. The patient demonstrated slow progress during the course of the hospitalization. She is much more redirectable she is less pressured. She is demonstrating no physical aggressiveness. An attempt to hold a family meeting involving her mother was made with the patient's mother was very agitated and needed to be escorted off the unit. The patient was seen by internal medicine for routine history and physical exam. Routine lab work revealed a likely urinary tract infection and she was placed on antibiotics. Mental status exam: The patient is a tall obese female appearing her stated age. She is dressed in her own clothing eye contact is appropriate. Hygiene and grooming are adequate. She does have spontaneous speech and she is verbose. She is redirectable. She reports her mood is better she denies having any suicidal or homicidal ideation intent or plan. She is reporting no auditory or visual hallucinations or any specific delusions. There is no observed evidence of psychosis. Thought process can be circumstantial she is demonstrating no tangential thinking loose associations or flight of ideas. She does not appear hypomanic or manic at this time. She is demonstrating no verbal or physical aggressiveness. She is demonstrating no abnormal involuntary movements. She remains oriented to person place and date. She is demonstrating a range of affect. Impressions 1. Mood disorder unspecified, rule out methamphetamine-induced mood disorder, methamphetamine use disorder, rule out bipolar disorder rule out cocaine use disorder Plan: The patient will be discharged from the mental health unit today to return home. She will follow up with [facility] for outpatient services. She does not wish to participate in inpatient chemical dependency treatment. She will continue on Abilify maintena 400 mg monthly. Her next dose will be due 04/08/2018. She will continue on Seroquel 200 mg at bedtime. It is likely that we are cross tapering her off of Seroquel onto the Abilify. This cross taper may be completed in the outpatient setting. It appears she requires one more day of her antibiotic treatment. She is instructed not to use any alcohol or illicit drugs we discussed that this will elevate her safety risk. She is instructed to return to the hospital with any acute safety concerns. Patient Condition at Discharge: Stable Plan - Discharge Summary Discharge Rx Participant: No New Discharge Prescriptions: New ARIPiprazole [Abilify] 15 mg PO DAILY #10 tab ARIPiprazole IM [Abilify Maintena] 400 mg IM QMONTH #1 vial Cephalexin [Keflex] 500 mg PO BID #3 cap Nicotine 14Mg/24Hr Patch [Habitrol] 1 patch TRANSDERM DAILY #10 patch QUEtiapine [SEROquel] 200 mg PO HS #30 tab Continue Naproxen 500 mg PO DAILY Lisinopril [Zestril] 10 mg PO DAILY Cholecalciferol [Vitamin D3] 5,000 unit PO DAILY Discontinued Acetaminophen Tab [Tylenol Tab] 650 mg PO Q6H PRN PRN Reason: Pain No Action Cyanocobalamin [Vitamin B-12 Injection] 1,000 mcg SQ WEEKLY Discharge Medication List Cholecalciferol [Vitamin D3] 5,000 unit PO DAILY 03/05/18 [History] Cyanocobalamin [Vitamin B-12 Injection] 1,000 mcg SQ WEEKLY 03/05/18 [History] Lisinopril [Zestril] 10 mg PO DAILY 03/05/18 [History] Naproxen 500 mg PO DAILY 03/05/18 [History] ARIPiprazole IM [Abilify Maintena] 400 mg IM QMONTH #1 vial 03/14/18 [Rx] ARIPiprazole [Abilify] 15 mg PO DAILY #10 tab 03/14/18 [Rx] Cephalexin [Keflex] 500 mg PO BID #3 cap 03/14/18 [Rx] Nicotine 14Mg/24Hr Patch [Habitrol] 1 patch TRANSDERM DAILY #10 patch 03/14/18 [ Rx] QUEtiapine [SEROquel] 200 mg PO HS #30 tab 03/14/18 [Rx] Follow up Appointment(s)/Referral(s): Ivania Camejo MD [Primary Care Provider] - 1 Week
== END 2018-03-14 10:01 | disposition home or self-care (01) | DRG 897 ==
LOC: EC 12:32 → 3MHU 14:27
PROVIDERS: ADMIT Psychiatry & Neurology Psychiatry; ATTEND Psychiatry & Neurology Psychiatry
DX: F15.24 Other stimulant dependence with stimulant-induced mood disorder (principal); F23 Brief psychotic disorder; N39.0 Urinary tract infection, site not specified; F14.10 Cocaine abuse, uncomplicated; Z72.89 Other problems related to lifestyle; E53.8 Deficiency of other specified B group vitamins; E55.9 Vitamin D deficiency, unspecified; E66.9 Obesity, unspecified; F17.200 Nicotine dependence, unspecified, uncomplicated; F32.9 Major depressive disorder, single episode, unspecified; I10 Essential (primary) hypertension; M19.90 Unspecified osteoarthritis, unspecified site; Z79.899 Other long term (current) drug therapy; Z83.3 Family history of diabetes mellitus; Z91.19 Patient's noncompliance with other medical treatment and regimen; Z81.8 Family history of other mental and behavioral disorders; Z81.1 Family history of alcohol abuse and dependence; Z81.3 Family history of other psychoactive substance abuse and dependence; Z68.37 Body mass index [BMI] 37.0-37.9, adult; R63.0 Anorexia; M25.571 Pain in right ankle and joints of right foot; M25.552 Pain in left hip; M25.551 Pain in right hip; M54.5 Low back pain; G89.29 Other chronic pain
CPT/HCPCS: 80053; 80306; 81001; 81025; 82075; 84443; 85025; 87086; 99285

== ENCOUNTER 2020-01-20 08:57 | Inpatient (IN) | payer MEDICAID, OTHER ==
[2020-01-20 10:37] LABS: Amphetamine Screen,Urine Not Detected (NotDetected); Barbiturate Screen,Urine Not Detected (NotDetected); Benzodiazepines Screen,Urine Not Detected (NotDetected); Cocaine Screen,Urine Not Detected (NotDetected); Methadone Screen, Urine Not Detected (NotDetected); Opiate Screen,Urine Not Detected (NotDetected); Oxycodone Screen, Urine Not Detected (NotDetected); Phencyclidine Screen,Urine Not Detected (NotDetected); Tricyclic Antidepressant,Urine Not Detected (NotDetected); Urn Cannabinoid Scrn Not Detected (NotDetected)
--- NOTE | 2020-01-20 10:51 | ED ---
General Adult HPI - General Chief complaint: Psychiatric Symptoms Stated complaint: mental health Time Seen by Provider: 01/20/20 09:00 Source: patient, RN notes reviewed, old records reviewed Mode of arrival: ambulatory Limitations: no limitations - History of Present Illness Initial comments: This is a 29-year-old female who presents emergency Department with her mother. Patient was brought in because since Saturday she has been yelling and screaming and tearing apart the apartment. Mom states this happened once before to the patient and she was diagnosed with bipolar. Patient was out of the balcony yelling at neighbors. Patient is nonstop talking and very tangential thinking. Mother states she is not able to control her and she is twice now room the whole apartment. - Related Data Home Medications Medication Instructions Recorded Confirmed Cyanocobalamin [Vitamin B-12] 500 mcg PO DAILY 01/20/20 01/20/20 Ibuprofen [Motrin] 800 mg PO Q8H PRN 01/20/20 01/20/20 Medroxyprogesterone Acetate 150 mg IM Q90D 01/20/20 01/20/20 [Depo-Provera] cloNIDine HCL [Catapres] 0.1 mg PO BID 01/20/20 01/20/20 traZODone HCL 150 mg PO HS 01/20/20 01/20/20 Allergies Allergy/AdvReac Type Severity Reaction Status Date / Time No Known Allergies Allergy Verified 01/20/20 09:46 Review of Systems ROS Statement: Those systems with pertinent positive or pertinent negative responses have been documented in the HPI. ROS Other: All systems not noted in ROS Statement are negative. Past Medical History Past Medical History: Hypertension Additional Past Medical History / Comment(s): CHRONIC PAIN IN RIGHT LEG/ankle - BROKEN AND REPAIRED WITH METAL; "Dislocated disc" w/lower back & bilat. hip pain. History of Any Multi-Drug Resistant Organisms: None Reported Past Surgical History: Orthopedic Surgery Additional Past Surgical History / Comment(s): RIGHT ANKLE/RIGHT LEG Past Anesthesia/Blood Transfusion Reactions: No Reported Reaction Past Psychological History: Anxiety, Bipolar, Depression Smoking Status: Current every day smoker Past Alcohol Use History: Occasional Past Drug Use History: Cocaine, Marijuana, Methamphetamine, Opiates - Past Family History Father Additional Family Medical History / Comment(s): Father is in his 40s with history of bipolar. He is in halfway for an armed robbery with also history of alcohol and drug abuse. Brother(s) Additional Family Medical History / Comment(s): Patient has brothers and 2 are incarcerated Mother Family Medical History: Diabetes Mellitus General Exam - General Exam Comments Initial Comments: GENERAL: Patient is well-developed and well-nourished. Patient is nontoxic and well- hydrated and is in no acute distress. ENT: Neck is soft and supple. No significant lymphadenopathy is noted. Oropharynx is clear. Moist mucous membranes. Neck has full range of motion without eliciting any pain. EYES: The sclera were anicteric and conjunctiva were pink and moist. Extraocular movements were intact and pupils were equal round and reactive to light. Eyelids were unremarkable. PULMONARY: Unlabored respirations. Good breath sounds bilaterally. No audible rales rhonchi or wheezing was noted. CARDIOVASCULAR: There is a regular rate and rhythm without any murmurs gallops or rubs. ABDOMEN: Soft and nontender with normal bowel sounds. SKIN: Skin is clear with no lesions or rashes and otherwise unremarkable. NEUROLOGIC: Patient is alert and oriented x3. Cranial nerves II through XII are grossly intact. Motor and sensory are also intact. Normal speech, volume and content. Symmetrical smile. MUSCULOSKELETAL: Normal extremities with adequate strength and full range of motion. No lower extremity swelling or edema. No calf tenderness. LYMPHATICS: No significant lymphadenopathy is noted PSYCHIATRIC: Patient is manic with very tangential thinking. Patient is hyperverbal. Patient does appear to be alert and oriented 3 Limitations: no limitations Course Vital Signs 01/20/20 01/20/20 01/20/20 09:02 09:04 10:04 Temperature 98.7 F Pulse Rate 64 Respiratory 22 20 20 Rate Blood Pressure 137/99 O2 Sat by Pulse 93 L Oximetry Medical Decision Making - Medical Decision Making EPS evaluated the patient and determined that the patient needed to be admitted. - Lab Data Lab Results 01/20/20 Range/Units 10:11 Urine Opiates Screen Not Detected (NotDetected) Ur Oxycodone Screen Not Detected (NotDetected) Urine Methadone Screen Not Detected (NotDetected) Ur Propoxyphene Screen Not Detected (NotDetected) Ur Barbiturates Screen Not Detected (NotDetected) U Tricyclic Antidepress Not Detected (NotDetected) Ur Phencyclidine Scrn Not Detected (NotDetected) Ur Amphetamines Screen Not Detected (NotDetected) U Methamphetamines Scrn Detected H (NotDetected) U Benzodiazepines Scrn Not Detected (NotDetected) Urine Cocaine Screen Not Detected (NotDetected) U Marijuana (THC) Screen Not Detected (NotDetected) Disposition Clinical Impression: Acute psychosis, Methamphetamine use disorder, moderate Disposition: ADMITTED IP TO THIS HOSP Referrals: Macrina Gallardo MD [Primary Care Provider] - 1-2 days Time of Disposition: 10:59
[2020-01-20] MEDS ORDERED: LORazepam 2 MG/ML INJ IM STA (10:57)
[2020-01-20] MEDS ORDERED: ZIPRASIDONE 20 MG VIAL IM STA (10:57)
[2020-01-20] MEDS ORDERED: MAGNESIUM HYDROXIDE 2,400 MG/10 ML CUP PO PRN (12:54)
[2020-01-20 13:33] LABS: Appearance,Urine Clear (Clear); Bacteria,Urine Rare /hpf; Bilirubin,Urine Negative (Negative); Blood,Urine Small (Negative); Color,Urine Colorless; Glucose,Urine (UA) Negative (Negative); Ketones,Urine Negative (Negative); Leukocyte Esterase,Urine Negative (Negative); Mucus,Urine Rare /hpf; Nitrite,Urine Negative (Negative); PH, Urine 5.5 (5.0-8.0); Protein,Urine Negative (Negative); RBC,Urine 1 /hpf (0-5); Specific Gravity,Urine 1.006 (1.001-1.035); Squamous Epithelial Cell,Urine <1 /hpf (0-4); Urobilinogen,Urine <2.0 mg/dL (<2.0); WBC,Urine 1 /hpf (0-5)
[2020-01-20] MEDS: ACETAMINOPHEN TAB 325 MG TAB PO PRN (19:33)
[2020-01-20] MEDS: LORazepam 1 MG TAB PO PRN (19:33)
[2020-01-20] MEDS: cloNIDine HCL 0.1 MG TAB PO SCH ×2 (21:39→21:56)
[2020-01-21] MEDS: ZIPRASIDONE 20 MG VIAL IM PRN (01:10)
[2020-01-21 08:34] LABS: Basophils % (A) 0 %; Eosinophils # (A) 0.3 k/uL (0-0.7); Eosinophils % (A) 4 %; HCT 33.6 % (34.0-46.0); HGB 10.7 gm/dL (11.4-16.0); Lymphocytes # (A) 1.8 k/uL (1.0-4.8); Lymphocytes % (A) 25 %; MCH 27.7 pg (25.0-35.0); MCHC 31.8 g/dL (31.0-37.0); Mean Platelet Volume 7.9; Monocytes # (A) 0.4 k/uL (0-1.0); Monocytes % (A) 5 %; Neutrophils # (A) 4.6 k/uL (1.3-7.7); Neutrophils % (A) 65 %; Platelet Count 204 k/uL (150-450); RBC 3.86 m/uL (3.80-5.40); RDW 14.6 % (11.5-15.5); WBC 7.1 k/uL (3.8-10.6)
[2020-01-21 09:18] LABS: ALT 29 U/L (4-34); AST 36 U/L (14-36); African American GFR (CKD) >90 (>60 ml/min/1.73 sqM); Albumin 3.4 g/dL (3.5-5.0); Alkaline Phosphatase 73 U/L (38-126); Anion Gap 3 mmol/L; Blood Urea Nitrogen 14 mg/dL (7-17); Calcium 8.8 mg/dL (8.4-10.2); Carbon Dioxide 26 mmol/L (22-30); Chloride 109 mmol/L (98-107); Cholesterol 140 mg/dL (<200); Glucose 97 mg/dL (74-99); HDL Cholesterol 43 mg/dL (40-60); LDL Cholesterol,Calculated 80 mg/dL (0-99); Non-African American GFR(CKD) >90 (>60 ml/min/1.73 sqM); Sodium 138 mmol/L (137-145); Total Bilirubin 0.3 mg/dL (0.2-1.3); Triglycerides 86 mg/dL (<150)
[2020-01-21] MEDS: cloNIDine HCL 0.1 MG TAB PO SCH ×2 (09:26→21:33)
[2020-01-21] MEDS: NICOTINE 14MG/24HR PATCH TRANSDERM SCH (09:26)
[2020-01-21] MEDS: LORazepam 1 MG TAB PO PRN ×2 (09:27→19:36)
--- NOTE | 2020-01-21 11:31 | P.MDCNMH ---
History of Present Illness H&P Date: 01/21/20 Chief Complaint: medical management This is a 29-year-old female patient of Dr. Gallardo the past medical history of hypertension, chronic back pain, mood disorder with possible bipolar disorder. The patient states that she does not follow with a psychiatrist. She last saw Dr. samuel 3 months ago. She denies any suicidal thoughts. Patient was brought into [facility] emergency center by her mother because since Saturday she was yelling and screaming and tearing apart the apartment. Patient states that she has not been able to eat or sleep normally for a week and "it messes with your head." Patient denies any alcohol, marijuana use. She states "I must have hit a bubble but I don't remember." Urine drug screen is positive for methamphetamines. Urinalysis showed small amount of blood, nitrate and leukoesterase negative. TSH 1.220. CBC reveals hemoglobin 10.7 otherwise within normal limits. CMP within normal limits except for chloride 109, total protein 6.0, albumin 3.4. Triglycerides 86, cholesterol 140, LDL 80, HDL 43. Patient has been admitted to the mental health unit. At the time of this evaluation, patient states that she was unable to sleep and is very tired. She does deny suicidal thoughts. Review of Systems Constitutional: Reports fatigue, Denies chills, Denies fever, Denies poor appetite, Denies weight loss Eyes: denies blurred vision, denies pain Ears, nose, mouth and throat: Denies headache, Denies sore throat, Denies vertigo Cardiovascular: Denies chest pain, Denies decreased exercise tolerance, Denies dyspnea on exertion, Denies edema, Denies leg edema, Denies shortness of breath, Denies syncope Respiratory: Denies cough, Denies cough with sputum, Denies dyspnea, Denies excessive sputum, Denies hemoptysis, Denies home oxygen, Denies respiratory infections Gastrointestinal: Denies abdominal pain, Denies diarrhea, Denies loss of ap petite, Denies nausea, Denies vomiting Genitourinary: Denies dysuria, Denies hematuria, Denies urgency, Denies urinary frequency Musculoskeletal: Denies frequent falls, Denies gait dysfunction, Denies muscle weakness, Denies myalgias Integumentary: Denies pruritus, Denies rash Neurological: Denies change in mentation, Denies change in speech, Denies numbness, Denies weakness Psychiatric: Reports sleep disturbances, Denies anxiety, Denies depression, Denies suicidal ideation Endocrine: Reports fatigue, Denies weight change Past Medical History Past Medical History: Hypertension Additional Past Medical History / Comment(s): CHRONIC PAIN IN RIGHT LEG/ankle - BROKEN AND REPAIRED WITH METAL; "Dislocated disc" w/lower back & bilat. hip pain. History of Any Multi-Drug Resistant Organisms: None Reported Past Surgical History: Orthopedic Surgery Additional Past Surgical History / Comment(s): RIGHT ANKLE/RIGHT LEG Past Anesthesia/Blood Transfusion Reactions: No Reported Reaction Past Psychological History: Anxiety, Bipolar, Depression Smoking Status: Current every day smoker Past Alcohol Use History: Occasional Additional Past Alcohol Use History / Comment(s): Patient is a smoker of a half a pack per day. She denies any alcohol use marijuana use or street drug use. Note that urine drug screen is positive for methamphetamines. She does have history of using methamphetamines, crack cocaine, opioids and heavy alcohol use. Past Drug Use History: Cocaine, Marijuana, Methamphetamine, Opiates - Past Family History Father Additional Family Medical History / Comment(s): Father is in his 40s with history of bipolar and multiple personality. He is in senior care for an armed robbery with also history of alcohol and drug abuse. Brother(s) Additional Family Medical History / Comment(s): Patient has brothers and 2 are incarcerated area which she states they have anger management issues but she is not aware of any medical problems. Patient's 1 sister with no major medical problems that she is aware of. Mother Family Medical History: Diabetes Mellitus Additional Family Medical History / Comment(s): Mother is alive at age 55 with history of diabetes, hypertension, mental health issues. Patient does not have any children. Medications and Allergies Home Medications Medication Instructions Recorded Confirmed Type Cyanocobalamin [Vitamin B-12] 500 mcg PO DAILY 01/20/20 01/20/20 History Ibuprofen [Motrin] 800 mg PO Q8H PRN 01/20/20 01/20/20 History Medroxyprogesterone Acetate 150 mg IM Q90D 01/20/20 01/20/20 History [Depo-Provera] cloNIDine HCL [Catapres] 0.1 mg PO BID 01/20/20 01/20/20 History traZODone HCL 150 mg PO HS 01/20/20 01/20/20 History Allergies Allergy/AdvReac Type Severity Reaction Status Date / Time No Known Allergies Allergy Verified 01/20/20 09:46 Physical Exam Vitals: Vital Signs Temp Pulse Pulse Resp BP BP Pulse Ox 01/20/20 21:57 98.8 F 100 129/92 01/20/20 18:07 98.8 F 01/20/20 13:30 98.5 F 77 20 156/75 01/20/20 13:00 20 01/20/20 12:44 98.5 F 77 16 156/75 01/20/20 12:00 20 01/20/20 11:00 20 01/20/20 10:04 20 01/20/20 09:04 20 01/20/20 09:02 98.7 F 64 22 137/99 93 L Gen: This is a obese 29-year-old female. Patient is cooperative for examination. Poor eye contact. HEENT: Head is atraumatic, normocephalic. Pupils equal, round. Sclerae is anicteric. NECK: Supple. No JVD. No lymphadenopathy. No thyromegaly. LUNGS: Clear to auscultation. No wheezes or rhonchi. No intercostal retractions. HEART: Regular rate and rhythm. No murmur. ABDOMEN: Soft. Bowel sounds are present. No masses. No tenderness. EXTREMITIES: No pedal edema. No calf tenderness. Bruises noted to her upper arm in very stages of healing. NEUROLOGICAL: Patient is awake, alert and oriented x3. Cranial nerves 2 through 12 are grossly intact. Cranial Nerve Examination - Cranial Nerves Cranial Nerve I- Olfactory: Intact Cranial Nerve II- Optic: Intact Cranial Nerve III- Oculomotor: Intact Cranial Nerve IV- Trochlear: Intact Cranial Nerve V- Trigeminal: Intact Cranial Nerve - Abducens: Intact Cranial Nerve VII- Facial: Intact Cranial Nerve VIII- Auditory: Intact Cranial Nerve IX- Glossopharyngeal: Intact Cranial Nerve X- Vagus: Intact Cranial Nerve XI- Accessory: Intact Cranial Nerve XII- Hypoglossal: Intact Results CBC & Chem 7: 01/21/20 07:52 01/21/20 07:52 Labs: Abnormal Lab Results - Last 24 Hours (Table) 01/20/20 01/20/20 01/21/20 Range/Units 10:11 10:11 07:52 Hgb 10.7 L (11.4-16.0) gm/dL Hct 33.6 L (34.0-46.0) % Urine Blood Small H (Negative) Urine Bacteria Rare H (None) /hpf Urine Mucus Rare H (None) /hpf U Methamphetamines Scrn Detected H (NotDetected) Assessment and Plan Plan: 1. Acute psychosis with history of possible bipolar disorder, depression. Patient has been admitted to the mental health unit. Continue current plan per psychiatrist. 2. Hypertension. Continue clonidine 0.1 mg twice daily. 3. History of tobacco use and dependence. Continue nicotine patch. 4. Chronic back pain. Continue Tylenol as needed for pain. 5. Drug screen positive for methamphetamines with history of drug abuse. Thank you kindly for this consultation. We will follow on an as-needed basis. Patient will have follow-up with Dr. Gallardo after discharge from the hospital. Impression and plan of care have been directed as dictated by the signing physician. Елена Bates nurse practitioner acting as scribe for signing physician.
--- NOTE | 2020-01-21 11:44 | P.HP ---
Psychiatric H&P - . H&P Date: 01/21/20 History & Physical: Allergies Allergy/AdvReac Type Severity Reaction Status Date / Time No Known Allergies Allergy Verified 01/20/20 09:46 Vital Signs Temp 98.8 F 01/20/20 21:57 Pulse 101 H 01/21/20 09:29 Resp 20 01/21/20 09:29 BP 139/90 01/21/20 09:29 Pulse Ox 93 L 01/20/20 09:02 Intake & Output 01/20/20 01/21/20 01/21/20 18:59 06:59 18:59 Weight 90.718 kg Laboratory Last Values WBC 7.1 k/uL (3.8-10.6) 01/21/20 07:52 RBC 3.86 m/uL (3.80-5.40) 01/21/20 07:52 Hgb 10.7 gm/dL (11.4-16.0) L 01/21/20 07:52 Hct 33.6 % (34.0-46.0) L 01/21/20 07:52 MCV 87.0 fL (80.0-100.0) 01/21/20 07:52 MCH 27.7 pg (25.0-35.0) 01/21/20 07:52 MCHC 31.8 g/dL (31.0-37.0) 01/21/20 07:52 RDW 14.6 % (11.5-15.5) 01/21/20 07:52 Plt Count 204 k/uL (150-450) 01/21/20 07:52 Neutrophils % 65 % 01/21/20 07:52 Lymphocytes % 25 % 01/21/20 07:52 Monocytes % 5 % 01/21/20 07:52 Eosinophils % 4 % 01/21/20 07:52 Basophils % 0 % 01/21/20 07:52 Neutrophils # 4.6 k/uL (1.3-7.7) 01/21/20 07:52 Lymphocytes # 1.8 k/uL (1.0-4.8) 01/21/20 07:52 Monocytes # 0.4 k/uL (0-1.0) 01/21/20 07:52 Eosinophils # 0.3 k/uL (0-0.7) 01/21/20 07:52 Basophils # 0.0 k/uL (0-0.2) 01/21/20 07:52 Sodium 138 mmol/L (137-145) 01/21/20 07:52 Potassium 4.0 mmol/L (3.5-5.1) 01/21/20 07:52 Chloride 109 mmol/L (98-107) H 01/21/20 07:52 Carbon Dioxide 26 mmol/L (22-30) 01/21/20 07:52 Anion Gap 3 mmol/L 01/21/20 07:52 BUN 14 mg/dL (7-17) 01/21/20 07:52 Creatinine 0.72 mg/dL (0.52-1.04) 01/21/20 07:52 Est GFR (CKD-EPI)AfAm >90 (>60 ml/min/1.73 sqM) 01/21/20 07:52 Est GFR (CKD-EPI)NonAf >90 (>60 ml/min/1.73 sqM) 01/21/20 07:52 Glucose 97 mg/dL (74-99) 01/21/20 07:52 Calcium 8.8 mg/dL (8.4-10.2) 01/21/20 07:52 Total Bilirubin 0.3 mg/dL (0.2-1.3) 01/21/20 07:52 AST 36 U/L (14-36) 01/21/20 07:52 ALT 29 U/L (4-34) 01/21/20 07:52 Alkaline Phosphatase 73 U/L (38-126) 01/21/20 07:52 Total Protein 6.0 g/dL (6.3-8.2) L 01/21/20 07:52 Albumin 3.4 g/dL (3.5-5.0) L 01/21/20 07:52 Triglycerides 86 mg/dL (<150) 01/21/20 07:52 Cholesterol 140 mg/dL (<200) 01/21/20 07:52 LDL Cholesterol, Calc 80 mg/dL (0-99) 01/21/20 07:52 HDL Cholesterol 43 mg/dL (40-60) 01/21/20 07:52 TSH 1.220 mIU/L (0.465-4.680) 01/21/20 07:52 Urine Color Colorless 01/20/20 10:11 Urine Appearance Clear (Clear) 01/20/20 10:11 Urine pH 5.5 (5.0-8.0) 01/20/20 10:11 Ur Specific [place] 1.006 (1.001-1.035) 01/20/20 10:11 Urine Protein Negative (Negative) 01/20/20 10:11 Urine Glucose (UA) Negative (Negative) 01/20/20 10:11 Urine Ketones Negative (Negative) 01/20/20 10:11 Urine Blood Small (Negative) H 01/20/20 10:11 Urine Nitrite Negative (Negative) 01/20/20 10:11 Urine Bilirubin Negative (Negative) 01/20/20 10:11 Urine Urobilinogen <2.0 mg/dL (<2.0) 01/20/20 10:11 Ur Leukocyte Esterase Negative (Negative) 01/20/20 10:11 Urine RBC 1 /hpf (0-5) 01/20/20 10:11 Urine WBC 1 /hpf (0-5) 01/20/20 10:11 Ur Squamous Epith Cells <1 /hpf (0-4) 01/20/20 10:11 Urine Bacteria Rare /hpf (None) H 01/20/20 10:11 Urine Mucus Rare /hpf (None) H 01/20/20 10:11 Urine Opiates Screen Not Detected (NotDetected) 01/20/20 10:11 Ur Oxycodone Screen Not Detected (NotDetected) 01/20/20 10:11 Urine Methadone Screen Not Detected (NotDetected) 01/20/20 10:11 Ur Propoxyphene Screen Not Detected (NotDetected) 01/20/20 10:11 Ur Barbiturates Screen Not Detected (NotDetected) 01/20/20 10:11 U Tricyclic Antidepress Not Detected (NotDetected) 01/20/20 10:11 Ur Phencyclidine Scrn Not Detected (NotDetected) 01/20/20 10:11 Ur Amphetamines Screen Not Detected (NotDetected) 01/20/20 10:11 U Methamphetamines Scrn Detected (NotDetected) H 01/20/20 10:11 U Benzodiazepines Scrn Not Detected (NotDetected) 01/20/20 10:11 Urine Cocaine Screen Not Detected (NotDetected) 01/20/20 10:11 U Marijuana (THC) Screen Not Detected (NotDetected) 01/20/20 10:11 01/21/20 11:35 IDENTIFYING DATA: Patient is a 29 female who currently lives with her mother and apartment has no kids 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 HPI: Patient presented to the hospital with her mother yesterday due to screaming and apparently "tearing up the apartment". As per ER report also states that patient was yelling at her neighbors on the balcony and was tangential and hyperverbal in the ER. Patient apparently had a positive UDS for methamphetamine. Patient was seen wandering the hallways today and appeared to be disheveled and was hyperverbal and intrusive with lead technical writer and inappropriate at times. Patient had poor insight and judgment and poor reality testing. She spoke about feeling "sporadic" at home and claims that she was "apparently using a lot of drugs". She admitted to methamphetamine abuse however minimized the frequency of use. She also stated that she has been feeling overwhelmed at work and sleeping less and feeling that her mood was "high strung". She admitted to mild paranoia and claims that "if somebody looks at me the wrong way I'm going to punch them". She claims that she has not been compliant with her medication. Patient denies any suicidal or homicidal ideations intent or plan. At this time patient denies any auditory or visual hallucinations. Patient admits to using amphetamine as above and also cigarettes daily. PAST PSYCHIATRIC HISTORY: Patient states that she has a history of mood disorder, likely bipolar disorder. Patient claims that she's been noncompliant with his psychiatric medications however was previously on Abilify and maintainna IM and also Seroquel. She states that she is previously hospitalized 2 years ago in 2018. Aims that she used to follow up with [facility]. Patient denies any history of suicide attempts in the past. PMH: Hypertension and ankle problems. ALLERGIES: as per EMR CHEMICAL DEPENDENCY HISTORY: as per HPI FAMILY PSYCHIATRIC/SUBSTANCE USE HISTORY: Father has bipolar disorder and abuses drugs. SOCIAL HISTORY: Patient was born and raised in [place] [facility] [facility] and claims to have gone to college for a "landscaping" at [employer]. She claims that she has no legal problems and currently works in a fast food restaurant has no kids is single and lives with her mother and apartment.. MENTAL STATUS EXAM: General Appearance: Patient appears to be obese, older than stated age is alert, irritable and argumentative. Patient appears to have poor hygiene and grooming. Shovel the parents. Behavior: Patient is seated without any agitated behavior. Irritable and argumentative. Intrusive. Speech: Patient's speech is fluent and nonpressured. Mood/Affect: Patient reports their mood is "okay", affect is congruent and labile. Suicidality/Homicidality: Patient denies having any homicidal ideation intent or plan. Denies any suicidal ideations intent or plan Perceptions: Patient denies any visual hallucinations and denies any auditory hallucinations Though content/process: Mild paranoia, goal oriented. [place]. Memory and concentration: AOX3, grossly intact for the purposes of this session. Can spell "WORLD" backwards Judgment and insight: poor/impulsive. STRENGTHS/WEAKNESSES: strength is that patient is resilient. Weakness is that patient has poor judgment and is impulsive INTELLECT: average IMPRESSIONS: Mood disorder unspecified, likely bipolar disorder, rule out methamphetamine induced mood disorder. Methamphetamine abuse Nicotine dependence PLAN: -Patient is admitted under involuntary status to [facility] for stabilization of psychiatric symptoms and safety. Patient signed for medication consent and is placed in patient's chart. A second certification was completed and along with petition will be filed for court. -Medications : Will start patient on Abilify by mouth 5 mg daily for mood stabilization with the goal to titrate up to possibly 15 mg daily in the next few days before patient will receive Abilify Maintenna long-acting injection prior to discharge. Trazodone 100 mg daily at bedtime for insomnia/mood. -Ativan and Geodon PRN for agitation/aggression -Patient was counselled on substance abuse and desired to cut back on use. Patient states that she is not interested in rehab at this point. -Patient was informed of the risks, benefits and side effects of the medication and patient verbally consented to taking the medications. Patient signed med consent form and was placed in chart. -Internal Medicine consult to perform medical evaluation and physical. -NRT - nicotine patch -SW on board for discharge planning. Encourage patient to participate in groups to work on coping skills.
[2020-01-21] MEDS: ACETAMINOPHEN TAB 325 MG TAB PO PRN ×2 (12:55→18:06)
[2020-01-21] MEDS: ARIPiprazole 5 MG TAB PO SCH (12:55)
[2020-01-21] MEDS: MAG HYDROX/AL HYDROX/SIMETH 30 ML CUP PO PRN (17:14)
[2020-01-21 19:44] LABS: Hemoglobin A1C 5.2 % (4.0-6.0)
[2020-01-21] MEDS: traZODone HCL 100 MG TAB PO SCH (21:33)
[2020-01-22] MEDS: ZIPRASIDONE 20 MG VIAL IM PRN (01:09)
[2020-01-22] MEDS: ACETAMINOPHEN TAB 325 MG TAB PO PRN ×4 (05:03→23:09)
[2020-01-22] MEDS: ARIPiprazole 5 MG TAB PO SCH (08:22)
[2020-01-22] MEDS: NICOTINE 14MG/24HR PATCH TRANSDERM SCH (08:22)
[2020-01-22] MEDS: cloNIDine HCL 0.1 MG TAB PO SCH ×2 (08:23→20:16)
[2020-01-22] MEDS: LORazepam 1 MG TAB PO PRN ×2 (10:26→23:10)
--- NOTE | 2020-01-22 12:13 | P.PN ---
Subjective Progress Note Date: 01/22/20 Seen in the chart was reviewed. The patient reports doing okay and was demanding to be discharged today. The patient was angry and irritable during the session. The patient was not able to answer questions appropriately. The patient complained of poor sleep at night and continues to report paranoid id eations. The patient reports good appetite and denies any other problems at this time. The patient is insisting that she could take her medications at home and should be discharged to follow-up as an outpatient. The patient shows lack of insight into her illness and treatment. The patient did not answer questions regarding hallucinations. She denies any suicidal or homicidal ideations at this time. The patient denies any side effects on the medications. Objective - Vital Signs Vital signs: Vital Signs Temp 97.4 F L 01/22/20 07:15 Pulse 99 01/22/20 07:15 Resp 18 01/22/20 07:15 BP 142/84 01/22/20 07:15 Pulse Ox 99 01/22/20 07:15 - Exam MENTAL STATUS EXAM: General Appearance: Patient appears to be obese, older than stated age is alert, irritable and argumentative. Patient appears to have poor hygiene and grooming. Behavior: Patient is seated without any agitated behavior. Irritable and argumentative. Intrusive. Speech: Patient's speech is fluent and nonpressured. Mood/Affect: Patient reports their mood is "okay", affect is congruent and labile. Suicidality/Homicidality: Patient denies having any homicidal ideation intent or plan. Denies any suicidal ideations intent or plan Perceptions: Patient denies any visual hallucinations and denies any auditory hallucinations Though content/process: Mild paranoia, goal oriented. Elizabeth. Memory and concentration: AOX3, grossly intact for the purposes of this session. Can spell "WORLD" backwards Judgment and insight: poor/impulsive. STRENGTHS/WEAKNESSES: strength is that patient is resilient. Weakness is that patient has poor judgment and is impulsive INTELLECT: average - Labs CBC & Chem 7: 01/21/20 07:52 01/21/20 07:52 Assessment and Plan Assessment: IMPRESSIONS: Mood disorder unspecified, likely bipolar disorder, rule out methamphetamine induced mood disorder. Methamphetamine abuse Nicotine dependence Plan: PLAN: -Patient is admitted under involuntary status to [facility] for stabilization of psychiatric symptoms and safety. Patient signed for medication consent and is placed in patient's chart. A second certification was completed and along with petition will be filed for court. -Medications : Will increase Abilify by mouth 10 mg daily for mood stabilization with the goal to titrate up to possibly 15 mg daily in the next few days before patient will receive Abilify Maintenna long-acting injection prior to discharge. Trazodone 100 mg daily at bedtime for insomnia/mood. -Ativan and Geodon PRN for agitation/aggression -Patient was counselled on substance abuse and desired to cut back on use. Patient states that she is not interested in rehab at this point. -Patient was informed of the risks, benefits and side effects of the medication and patient verbally consented to taking the medications. Patient signed med consent form and was placed in chart. -Internal Medicine consult to perform medical evaluation and physical. -NRT - nicotine patch -SW on board for discharge planning. Encourage patient to participate in groups to work on coping skills.
[2020-01-22] MEDS: traZODone HCL 100 MG TAB PO SCH (20:16)
[2020-01-23] MEDS: ZIPRASIDONE 20 MG VIAL IM PRN ×2 (01:47→22:42)
[2020-01-23] MEDS: MAG HYDROX/AL HYDROX/SIMETH 30 ML CUP PO PRN ×2 (02:02→09:57)
[2020-01-23] MEDS: NICOTINE 14MG/24HR PATCH TRANSDERM SCH (08:28)
[2020-01-23] MEDS: ARIPiprazole 10 MG TAB PO SCH (08:28)
[2020-01-23] MEDS: LORazepam 1 MG TAB PO PRN ×3 (08:29→22:42)
[2020-01-23] MEDS: cloNIDine HCL 0.1 MG TAB PO SCH ×2 (08:29→21:42)
[2020-01-23] MEDS: ACETAMINOPHEN TAB 325 MG TAB PO PRN (09:51)
[2020-01-23] MEDS: NICOTINE POLACRILEX 2 MG GUM BUCCAL PRN ×2 (16:25→21:48)
--- NOTE | 2020-01-23 17:21 | P.PN ---
Progress Note - Text Progress Note Date: 01/23/20 Clinical Problems: Unspecified mood disorder, rule out bipolar disorder current episode depressed, rule out schizoaffective disorder, rule out methamphetamine induced mood disorder, methamphetamine use disorder severe, and tobacco use disorder Interim history: I reviewed the medical record and interviewed the patient. She expressed several concerns. She requested nicotine, and so for the patches alleging ALLERGY. She complained that she is not sleeping at night, cannot continue taking trazodone and will not take Seroquel because of weight gain. She requested "something else" for pain. She readily accepted my suggestion regarding temporary use of Restoril and did not cope when I told her that we will not prescribe anything more than Tylenol for pain. She has been compliant with prescribed psychotropic medication and is posed no behavioral problems. She is tending most therapist groups and activities. She slept 24 hours last night. Mental status exam: He presented as a disheveled, obese and slightly malodorous 29-year-old female. She made eye contact and appeared to attend to interview. She is very pale complexion and multiple bruises on her arm. She had a blunted facial expression. She had no abnormality of psychomotor activity and no abnormal movements. Her speech was spontaneous with decreased rate and rhythm. Affect was blunted but stable and appropriate. She denied suicidal ideation and wishes. She denied homicidal ideation. She did not express hopelessness, helplessness or worthlessness. She denied express ideas reference, paranoid ideation or delusions. Her thinking was concrete but her associations were coherent and logical. She denied hallucinations and didn't appear to be responding to internal stimuli. Assessment: She is appeared to be withdrawing from effects of methamphetamine. She is medication seeking. Plan: Continue inpatient treatment. Continue Abilify. Discontinue nicotine patches and begin nicotine gum. Discontinue trazodone and begin Restoril 15 mg at bedtime when necessary for sleep. Encouraged continued participation in therapeutic groups and activities. Efren status response to treatment daily basis.
[2020-01-23] MEDS ORDERED: WATER FOR INJECTION, STERILE 10 ML IV ONE (20:20)
[2020-01-23] MEDS ORDERED: ZIPRASIDONE 20 MG VIAL IM ONE (20:20)
[2020-01-23] MEDS: DOXYCYCLINE 100 MG CAP PO SCH (21:46)
[2020-01-24] MEDS: TEMAZEPAM 15 MG CAP PO PRN ×2 (02:14→22:30)
[2020-01-24] MEDS: LORazepam 1 MG TAB PO PRN ×3 (04:22→23:53)
[2020-01-24] MEDS: ACETAMINOPHEN TAB 325 MG TAB PO PRN ×3 (04:22→19:45)
[2020-01-24] MEDS: cloNIDine HCL 0.1 MG TAB PO SCH ×2 (08:01→22:29)
[2020-01-24] MEDS: ARIPiprazole 10 MG TAB PO SCH (08:01)
[2020-01-24] MEDS: DOXYCYCLINE 100 MG CAP PO SCH ×2 (08:02→22:28)
--- NOTE | 2020-01-24 10:24 | P.PN ---
Progress Note - Text Progress Note Date: 01/24/20 Clinical Problems: Unspecified mood disorder, rule out bipolar disorder current episode depressed, rule out schizoaffective disorder, rule out methamphetamine induced mood disorder, methamphetamine use disorder severe, and tobacco use disorder Interim history: I reviewed the medical record and interviewed the patient. She wasn't able to take the Restoril rest the evening (she complained that the nurse "could not find it.") She understands that Restoril would not be included in her discharge medications. She requested a prescription for melatonin at night as a sleep aid. She questioned the diagnosis of bipolar disorder alleging that she has ADHD and requires treatment for ADHD. I deferred that discussion to her primary psychiatrist. Mental status exam: He presented as a disheveled, obese and slightly malodorous 29-year-old female. She made eye contact and appeared to attend to interview. She is very pale complexion and multiple bruises on her arm. She had a blunted facial expression. She had no abnormality of psychomotor activity and no abnormal movements. Her speech was spontaneous with normal rate and rhythm. Affect was blunted but stable and appropriate. She denied suicidal ideation and wishes. She denied homicidal ideation. She did not express hopelessness, helplessness or worthlessness. She denied express ideas reference, paranoid ideation or delusions. Her thinking was concrete but her associations were coherent and logical. She denied hallucinations and didn't appear to be responding to internal stimuli. Assessment: She is appeared to be withdrawing from effects of methamphetamine. She is medication seeking. Plan: Continue inpatient treatment. Continue Abilify. Discontinue nicotine patches and begin nicotine gum. Continue Restoril 15 mg at bedtime when necessary for sleep. Begin melatonin 6 mg at bedtime. Encouraged continued participation in therapeutic groups and activities. [facility] status response to treatment daily basis.
--- NOTE | 2020-01-24 11:01 | P.PN ---
Subjective Progress Note Date: 01/24/20 This is a 29-year-old female patient of Dr. Gallardo the past medical history of hypertension, chronic back pain, mood disorder with possible bipolar disorder. The patient states that she does not follow with a psychiatrist. She last saw Dr. samuel 3 months ago. She denies any suicidal thoughts. Patient was brought into [facility] emergency center by her mother because since Saturday she was yelling and screaming and tearing apart the apartment. Patient states that she has not been able to eat or sleep normally for a week and "it messes with your head." Patient denies any alcohol, marijuana use. She states "I must have hit a bubble but I don't remember." Urine drug screen is positive for methamphetamines. Urinalysis showed small amount of blood, nitrate and leukoesterase negative. TSH 1.220. CBC reveals hemoglobin 10.7 otherwise within normal limits. CMP within normal limits except for chloride 109, total protein 6.0, albumin 3.4. Triglycerides 86, cholesterol 140, LDL 80, HDL 43. Patient has been admitted to the mental health unit. At the time of this evaluation, patient states that she was unable to sleep and is very tired. She does deny suicidal thoughts. 01/23: Received call regarding concern for mastitis. Patient was evaluated appears that patient has folliculitis in the soft tissue of both breasts with some lymph node involvement in the left axilla. Patient denies any fever or chills. She has been afebrile, heart rate 109, blood pressure 121/79, patient is ambulatory on room air with no respiratory distress noted. Patient was start ed on doxycycline last night and this will be continued for a ten-day course. Patient will follow-up with Dr. samuel for recheck once discharged from the mental health unit. Review of Systems Constitutional: Reports fatigue, Denies chills, Denies fever, Denies poor appetite, Denies weight loss Eyes: denies blurred vision, denies pain Ears, nose, mouth and throat: Denies headache, Denies sore throat, Denies vertigo Cardiovascular: Denies chest pain, Denies decreased exercise tolerance, Denies dyspnea on exertion, Denies edema, Denies leg edema, Denies shortness of breath, Denies syncope Respiratory: Denies cough, Denies cough with sputum, Denies dyspnea, Denies excessive sputum, Denies hemoptysis, Denies home oxygen, Denies respiratory infections Gastrointestinal: Denies abdominal pain, Denies diarrhea, Denies loss of appe tite, Denies nausea, Denies vomiting Genitourinary: Denies dysuria, Denies hematuria, Denies urgency, Denies urinary frequency Musculoskeletal: Denies frequent falls, Denies gait dysfunction, Denies muscle weakness, Denies myalgias Integumentary: Denies pruritus, Denies rash. Skin lesions on bilateral breast. Neurological: Denies change in mentation, Denies change in speech, Denies numbness, Denies weakness Psychiatric: Reports sleep disturbances, Denies anxiety, Denies depression, Denies suicidal ideation Endocrine: Reports fatigue, Denies weight change Objective - Vital Signs Vital signs: Vital Signs Temp 97.9 F 01/24/20 03:40 Pulse 109 H 01/24/20 03:40 Resp 16 01/24/20 03:40 BP 121/79 01/24/20 03:40 Pulse Ox 98 01/22/20 15:36 - Exam Gen: This is a obese 29-year-old female. Patient is cooperative for e xamination. HEENT: Head is atraumatic, normocephalic. Pupils equal, round. Sclerae is anicteric. NECK: Supple. No JVD. No lymphadenopathy. No thyromegaly. LUNGS: Clear to auscultation. No wheezes or rhonchi. No intercostal retractions. HEART: Regular rate and rhythm. No murmur. BREAST: Patient has skin lesions superficial soft tissue to the left breast at the 2 to 4:00 area and under the right breast. There is lymph node enlargement on the left axilla. ABDOMEN: Soft. Bowel sounds are present. No masses. No tenderness. EXTREMITIES: No pedal edema. No calf tenderness. Bruises noted to her upper arm in very stages of healing. NEUROLOGICAL: Patient is awake, alert and oriented x3. Cranial nerves 2 through 12 are grossly intact. - Labs CBC & Chem 7: 01/21/20 07:52 01/21/20 07:52 Assessment and Plan Plan: 1. Acute psychosis with history of possible bipolar disorder, depression. Patient has been admitted to the mental health unit. Continue current plan per psychiatrist. 2. Hypertension. Continue clonidine 0.1 mg twice daily. 3. History of tobacco use and dependence. Continue nicotine patch. 4. Chronic back pain. Continue Tylenol as needed for pain. 5. Drug screen positive for methamphetamines with history of drug abuse. 6. Folliculitis, bilateral breasts. Patient started on doxycycline and to complete a 10 day course. Follow-up with Dr. Gallardo after discharge. Thank you kindly for this consultation. We will follow on an as-needed basis. Patient will have follow-up with Dr. Gallardo after discharge from the hospital. Impression and plan of care have been directed as dictated by the signing physician. Елена Bates nurse practitioner acting as scribe for signing ph ysician.
[2020-01-24] MEDS: MELATONIN 3 MG TABLET PO SCH (22:29)
[2020-01-25] MEDS: MAG HYDROX/AL HYDROX/SIMETH 30 ML CUP PO PRN (02:11)
[2020-01-25] MEDS: ZIPRASIDONE 20 MG VIAL IM PRN (02:14)
[2020-01-25] MEDS: LORazepam 1 MG TAB PO PRN ×2 (08:25→16:30)
[2020-01-25] MEDS: DOXYCYCLINE 100 MG CAP PO SCH ×2 (08:25→21:33)
[2020-01-25] MEDS: ARIPiprazole 10 MG TAB PO SCH (08:25)
[2020-01-25] MEDS: cloNIDine HCL 0.1 MG TAB PO SCH ×2 (08:25→21:33)
[2020-01-25] MEDS ORDERED: ARIPiprazole 5 MG TAB PO ONE (09:50)
[2020-01-25] MEDS ORDERED: ARIPiprazole 5 MG TAB PO SCH (10:00)
--- NOTE | 2020-01-25 10:37 | P.PN ---
Progress Note - Text Progress Note Date: 01/25/20 Interval History: Patient was seen wandering the hallways and was directable and agreeable to jesus rivera with real estate underwriter in the office. Patient appeared to have improved hygiene and grooming today. Patient appeared to have an improvement in her irritability and intrusiveness. She claims that her mood has been getting better. She states that she feels less irritable and "angry all the time". She states that she has been talking her mother over the phone over the weekend. She was reading a book and asking several questions about her medications today. Patient was agreeable to take her Abilify Maintenna dose today and have her by mouth Abilify increased. She states that she did not sleep well last night and claims that "I had to take a shot" referring to her IM Ninfa. At this time patient denies any suicidal or homical ideations, intent or plan. Patient denies any auditory, visual hallucinations and denies any paranoia or delusions. Patient denies any side effects from the medications and has been compliant with meds. Mental Status Exam: General Appearance: Patient appears to be obese, older than stated age is alert, less irritable and argumentative today. Patient appears to have improved hygiene and grooming. Behavior: Patient is seated without any agitated behavior. Less irritable and argumentative today. Speech: Patient's speech is fluent and nonpressured. Mood/Affect: Patient reports their mood is "ok", affect is congruent and labile. Suicidality/Homicidality: Patient denies having any homicidal ideation intent or plan. Denies any suicidal ideations intent or plan Perceptions: Patient denies any visual hallucinations and denies any auditory hallucinations Though content/process: goal oriented. [place]. Logical. Memory and concentration: AOX3, grossly intact for the purposes of this session Judgment and insight: limited, mildly improving. Assessment Bipolar disorder, rule out methamphetamine induced mood disorder. Methamphetamine abuse Nicotine dependence Plan: -Patient continues to meet criteria for inpatient psychiatric admission for symptom stabilization and safety. Currently awaiting referral and court hearing date. -Medications: Continue with Benadryl 25 mg daily at bedtime for insomnia, melatonin 6 mg nightly for sleep, Restoril 15 mg daily at bedtime when necessary for insomnia. We'll increase Abilify to 15 mg daily by mouth for mood stabilization/psychosis. Patient will receive Abilify Maintenna long-acting injection 400 mg IM today and will be due for her next injection on 02/22/2020. -Medicine started patient on doxycycline for folliculitis, to be given a 10 day supply. Will on 02/02/2020. -When necessary Geodon and Ativan for agitation/aggression. -NRT - nicotine patch -SW on board for discharge planning. Encouraged the patient to participate in milieu. Patient states that she is not interested in rehab at this point. Patient will be likely ready for discharge tomorrow after deferral.
[2020-01-25] MEDS ORDERED: ARIPiprazole IM 400 MG VIAL (NO COST) IM ONE (11:00)
[2020-01-25] MEDS ORDERED: ARIPiprazole IM SYRINGE 400 MG (NO CHARGE) IM ONE (11:00)
[2020-01-25] MEDS: ACETAMINOPHEN TAB 325 MG TAB PO PRN (15:02)
[2020-01-25] MEDS ORDERED: diphenhydrAMINE 25 MG CAP PO SCH (21:00)
[2020-01-25] MEDS: MELATONIN 3 MG TABLET PO SCH (21:33)
[2020-01-26] MEDS: TEMAZEPAM 15 MG CAP PO PRN (01:08)
[2020-01-26 03:07] VITALS: BP 152/97; PULSE 112; RESP 18; TEMP 99.1
[2020-01-26] MEDS: LORazepam 1 MG TAB PO PRN (03:40)
[2020-01-26] MEDS: cloNIDine HCL 0.1 MG TAB PO SCH (08:26)
[2020-01-26] MEDS: DOXYCYCLINE 100 MG CAP PO SCH (08:26)
[2020-01-26] MEDS ORDERED: ARIPiprazole 15 MG TAB PO SCH (09:00)
--- NOTE | 2020-01-26 09:11 | P.DS ---
Providers Date of admission: 01/20/20 12:40 Expected date of discharge: 01/26/20 Attending physician: Richard Lam MD Consults: 01/20/20 12:54 Consult Physician Routine Consulting Provider: Macrina Gallardo Consult Reason/Comments: H and P Do you want consulting provider notified?: Yes Primary care physician: Macrina Gallardo - Discharge Diagnosis(es) (1) Bipolar disorder Current Visit: Yes Status: Acute Priority: High (2) Methamphetamine abuse Current Visit: Yes Status: Acute Priority: Medium (3) Nicotine dependence Current Visit: Yes Status: Acute Priority: Low Hospital Course: Admission HPI: Patient is a 29 -year-old female who currently lives with her mother and apartment has no kids 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 Patient presented to the hospital with her mother yesterday due to screaming and apparently "tearing up the apartment". As per ER report also states that patient was yelling at her neighbors on the balcony and was tangential and hyperverbal in the ER. Patient apparently had a positive UDS for methamphetamine. Patient was seen wandering the hallways today and appeared to be disheveled and was hyperverbal and intrusive with marketing writer and inappropriate at times. Patient had poor insight and judgment and poor reality testing. She spoke about feeling "sporadic" at home and claims that she was "apparently using a lot of drugs". She admitted to methamphetamine abuse however minimized the frequency of use. She also stated that she has been feeling overwhelmed at work and sleeping less and feeling that her mood was "high strung". She admitted to mild paranoia and claims that "if somebody looks at me the wrong way I'm going to punch them". She claims that she has not been compliant with her medication. Patient denies any suicidal or homicidal ideations intent or plan. At this time patient denies any auditory or visual hallucinations. Patient admits to using amphetamine as above and also cigarettes daily. Hospital course: Upon admission to the unit patient was initially irritable and intrusive. Patient was initially difficult to redirect and not agreeable to treatment and certifications and petition were filed with court and patient ended up signing deferral for treatment. Patient eventually became more directable and agreeable to commence treatment. Patient got along well with other patients on the unit and followed unit protocol. Patient did have incidences where she became agitated on the unit and required when necessary medications. Patient was compliant with the medications and denied any side effects throughout hospital course. Patient was started on Benadryl 50 milligrams nightly for insomnia, Restoril 15 mg daily at bedtime when necessary for insomnia, Abilify titrated up to a dose of 15 mg daily for mood stabilization/psychosis and was given Abilify Maintenna long-acting injection 400 mg dose on 01/25/2020 and tolerated it well. Patient will be due for her next Abilify Maintenna 400 mg dose on 02/22/2020. Patient spoke of her stressors and engaged in therapy both group and individual. Patient was able to work on her coping skills and anger management. Patient was also seen by medical team for history and physical exam. Throughout the course of the hospitalization patient gradually improved with regards to mood lability, impulsivity/irritability, anxiety, sleep and became future oriented with improved insight and judgment. On the day of discharge patient denied any suicidal or homicidal ideations intent or plan denied any auditory or visual hallucinations. Patient endorsed wanting to live for her family and her new kitten. The patient denied any access to guns or weapons. Patient denied any paranoia and did not endorse any delusions. Patient does have a significant history of substance abuse and was counseled on abstaining from all substances including alcohol and marijuana. Patient was offered however declined inpatient substance-abuse rehab and will be following up for individual therapy at [facility]. Patient was also counseled on the medications and need for regular compliance and was encouraged to follow-up with their outpatient appointment for mental health and also for primary care. Prior to discharge a family meeting will be arranged by social psychologist to answer any questions and ensure safety upon discharge. Mental status exam: General Appearance: Patient appears to be stated age is alert, directable, and cooperative. Patient is in no acute distress and has fair hygiene and grooming Behavior: Patient is calmly seated without any agitated behavior. Attempts to be cooperative. Speech: Patient's speech is fluent and nonpressured. Mood/Affect: Patient reports their mood is "better", affect is congruent and euthymic. Suicidality/Homicidality: Patient denies having any suicidal or homicidal ideation intent or plan. Perceptions: Patient denies any auditory or visual hallucinations. Though content/process: There is no evidence of any delusional thought content and thought process is linear and goal-directed. Memory and concentration: AOX3, grossly intact for the purposes of this session. Can spell "WORLD" backwards correctly. Judgment and insight: Limited however is improved with guarded prognosis Impression: Bipolar disorder, rule out methamphetamine-induced mood disorder Methamphetamine abuse Nicotine dependence Plan: -Continue with discharge today as patient has improved and stabilized psychiatrically and is not currently an imminent threat to herself and/or others. Patient will remain a chronically elevated risk of potential harm to self/others due to patient's substance abuse and chronic impulsivity. -Continue medications: Continue with Abilify by mouth 15 mg daily for mood stabilization/psychosis for 13 more days and then discontinue. Patient was given Abilify Maintenna long-acting injection 400 mg dose on 01/25/2020 and tolerated it well. Patient will be due for her next Abilify Maintenna 400 mg dose on 02/22/2020. Increased Benadryl 50 mg by mouth nightly for insomnia. Patient was advised to take melatonin up to 6 mg nightly when necessary if needed for sleep. -Patient was counseled on the need for medication compliance and appropriate follow-up at mental health and also primary care for medical issues. Patient verbalized understanding and agreed. -Social work to arrange for and conduct family meeting to ensure safety upon discharge and answer any questions/concerns. Social work also to arrange for patients follow up appointments with [facility] for psychiatric care along with follow up with primary care provider. Patient to be continued on doxycycline for folliculitis as recommended by internal medicine until 02/02/2020. -Patient signed deferral for treatment. -Patient counseled on abstaining from recreational drugs and marijuana and alcohol. Was informed/educated on the adverse effects on their physical and mental health. Patient verbally agreed and understood. Patient was offered substance abuse treatment however declined at this time. -Patient was instructed to return to the hospital or seek immediate medical care if their psychiatric or medical symptoms do worsen or reoccur. Allergies Allergy/AdvReac Type Severity Reaction Status Date / Time No Known Allergies Allergy Verified 01/20/20 09:46 Laboratory Results WBC 7.1 k/uL (3.8-10.6) 01/21/20 07:52 RBC 3.86 m/uL (3.80-5.40) 01/21/20 07:52 Hgb 10.7 gm/dL (11.4-16.0) L 01/21/20 07:52 Hct 33.6 % (34.0-46.0) L 01/21/20 07:52 MCV 87.0 fL (80.0-100.0) 01/21/20 07:52 MCH 27.7 pg (25.0-35.0) 01/21/20 07:52 MCHC 31.8 g/dL (31.0-37.0) 01/21/20 07:52 RDW 14.6 % (11.5-15.5) 01/21/20 07:52 Plt Count 204 k/uL (150-450) 01/21/20 07:52 Neutrophils % 65 % 01/21/20 07:52 Lymphocytes % 25 % 01/21/20 07:52 Monocytes % 5 % 01/21/20 07:52 Eosinophils % 4 % 01/21/20 07:52 Basophils % 0 % 01/21/20 07:52 Neutrophils # 4.6 k/uL (1.3-7.7) 01/21/20 07:52 Lymphocytes # 1.8 k/uL (1.0-4.8) 01/21/20 07:52 Monocytes # 0.4 k/uL (0-1.0) 01/21/20 07:52 Eosinophils # 0.3 k/uL (0-0.7) 01/21/20 07:52 Basophils # 0.0 k/uL (0-0.2) 01/21/20 07:52 Sodium 138 mmol/L (137-145) 01/21/20 07:52 Potassium 4.0 mmol/L (3.5-5.1) 01/21/20 07:52 Chloride 109 mmol/L (98-107) H 01/21/20 07:52 Carbon Dioxide 26 mmol/L (22-30) 01/21/20 07:52 Anion Gap 3 mmol/L 01/21/20 07:52 BUN 14 mg/dL (7-17) 01/21/20 07:52 Creatinine 0.72 mg/dL (0.52-1.04) 01/21/20 07:52 Est GFR (CKD-EPI)AfAm >90 (>60 ml/min/1.73 sqM) 01/21/20 07:52 Est GFR (CKD-EPI)NonAf >90 (>60 ml/min/1.73 sqM) 01/21/20 07:52 Glucose 97 mg/dL (74-99) 01/21/20 07:[address] Glu mg/dL 103 01/21/20 07:52 Hemoglobin A1c 5.2 % (4.0-6.0) 01/21/20 07:52 Calcium 8.8 mg/dL (8.4-10.2) 01/21/20 07:52 Total Bilirubin 0.3 mg/dL (0.2-1.3) 01/21/20 07:52 AST 36 U/L (14-36) 01/21/20 07:52 ALT 29 U/L (4-34) 01/21/20 07:52 Alkaline Phosphatase 73 U/L (38-126) 01/21/20 07:52 Total Protein 6.0 g/dL (6.3-8.2) L 01/21/20 07:52 Albumin 3.4 g/dL (3.5-5.0) L 01/21/20 07:52 Triglycerides 86 mg/dL (<150) 01/21/20 07:52 Cholesterol 140 mg/dL (<200) 01/21/20 07:52 LDL Cholesterol, Calc 80 mg/dL (0-99) 01/21/20 07:52 HDL Cholesterol 43 mg/dL (40-60) 01/21/20 07:52 TSH 1.220 mIU/L (0.465-4.680) 01/21/20 07:52 Urine Color Colorless 01/20/20 10:11 Urine Appearance Clear (Clear) 01/20/20 10:11 Urine pH 5.5 (5.0-8.0) 01/20/20 10:11 Ur Specific [place] 1.006 (1.001-1.035) 01/20/20 10:11 Urine Protein Negative (Negative) 01/20/20 10:11 Urine Glucose (UA) Negative (Negative) 01/20/20 10:11 Urine Ketones Negative (Negative) 01/20/20 10:11 Urine Blood Small (Negative) H 01/20/20 10:11 Urine Nitrite Negative (Negative) 01/20/20 10:11 Urine Bilirubin Negative (Negative) 01/20/20 10:11 Urine Urobilinogen <2.0 mg/dL (<2.0) 01/20/20 10:11 Ur Leukocyte Esterase Negative (Negative) 01/20/20 10:11 Urine RBC 1 /hpf (0-5) 01/20/20 10:11 Urine WBC 1 /hpf (0-5) 01/20/20 10:11 Ur Squamous Epith Cells <1 /hpf (0-4) 01/20/20 10:11 Urine Bacteria Rare /hpf (None) H 01/20/20 10:11 Urine Mucus Rare /hpf (None) H 01/20/20 10:11 Urine Opiates Screen Not Detected (NotDetected) 01/20/20 10:11 Ur Oxycodone Screen Not Detected (NotDetected) 01/20/20 10:11 Urine Methadone Screen Not Detected (NotDetected) 01/20/20 10:11 Ur Propoxyphene Screen Not Detected (NotDetected) 01/20/20 10:11 Ur Barbiturates Screen Not Detected (NotDetected) 01/20/20 10:11 U Tricyclic Antidepress Not Detected (NotDetected) 01/20/20 10:11 Ur Phencyclidine Scrn Not Detected (NotDetected) 01/20/20 10:11 Ur Amphetamines Screen Not Detected (NotDetected) 01/20/20 10:11 U Methamphetamines Scrn Detected (NotDetected) H 01/20/20 10:11 U Benzodiazepines Scrn Not Detected (NotDetected) 01/20/20 10:11 Urine Cocaine Screen Not Detected (NotDetected) 01/20/20 10:11 U Marijuana (THC) Screen Not Detected (NotDetected) 01/20/20 10:11 Vital Signs Temp 99.1 F 01/26/20 03:06 Pulse 112 H 01/26/20 03:06 Resp 18 01/26/20 03:06 BP 152/97 01/26/20 03:06 Pulse Ox 97 01/26/20 03:06 Patient Condition at Discharge: Stable Plan - Discharge Summary New Discharge Prescriptions: New ARIPiprazole [Abilify] 15 mg PO DAILY 13 Days tab diphenhydrAMINE [Benadryl] 50 mg PO HS 30 Days cap cloNIDine HCL [Catapres] 0.1 mg PO BID 30 Days tab Melatonin 6 mg PO HS tablet Nicotine Polacrilex [Nicorette] 2 mg BUCCAL Q4HR PRN 14 Days gum PRN Reason: Nicotine Cravings Acetaminophen Tab [Tylenol] 650 mg PO Q4HR PRN tab PRN Reason: Pain/Discomfort Doxycycline [Vibramycin] 100 mg PO BID 7 Days cap ARIPiprazole IM [Abilify Maintena] 400 mg IM QMONTH #1 vial Continue Medroxyprogesterone Acetate [Depo-Provera] 150 mg IM Q90D Cyanocobalamin [Vitamin B-12] 500 mcg PO DAILY Discontinued traZODone HCL 150 mg PO HS Ibuprofen [Motrin] 800 mg PO Q8H PRN PRN Reason: Pain cloNIDine HCL [Catapres] 0.1 mg PO BID Discharge Medication List Cyanocobalamin [Vitamin B-12] 500 mcg PO DAILY 01/20/20 [History] Medroxyprogesterone Acetate [Depo-Provera] 150 mg IM Q90D 01/20/20 [History] ARIPiprazole IM [Abilify Maintena] 400 mg IM QMONTH #1 vial 01/26/20 [Rx] ARIPiprazole [Abilify] 15 mg PO DAILY 13 Days tab 01/26/20 [Rx] Acetaminophen Tab [Tylenol] 650 mg PO Q4HR PRN tab 01/26/20 [Rx] Doxycycline [Vibramycin] 100 mg PO BID 7 Days cap 01/26/20 [Rx] Melatonin 6 mg PO HS tablet 01/26/20 [Rx] Nicotine Polacrilex [Nicorette] 2 mg BUCCAL Q4HR PRN 14 Days gum 01/26/20 [Rx] cloNIDine HCL [Catapres] 0.1 mg PO BID 30 Days tab 01/26/20 [Rx] diphenhydrAMINE [Benadryl] 50 mg PO HS 30 Days cap 01/26/20 [Rx] Follow up Appointment(s)/Referral(s): [facility] [Outside] - 01/28/20 12:00 pm (01-28-20 @ 12:30 with Gisella Harrison by phone) Macrina Gallardo MD [Primary Care Provider] - 1-2 days Patient Instructions/Handouts: How to Stop Smoking (DC), Mood Disorders (DC), Psychotic Disorder (DC) Activity/Diet/Wound Care/Special Instructions: Activity and diet as tolerated. Avoid the use of street drugs and alcohol. Take all medications as prescribed. When you are in need of refills on your medications please contact your medical provider and/or outpatient psychiatrist to have this done. Please go to scheduled outpatient appointment for aftercare treatment. If symptoms return or become worse, call the crisis line at and/or go to the nearest emergency room for evaluation. Discharge Disposition: HOME SELF-CARE
== END 2020-01-26 09:51 | disposition home or self-care (01) | DRG 885 ==
LOC: EC 08:57 → 3MHU 12:40
PROVIDERS: ADMIT Psychiatry & Neurology Psychiatry; ATTEND Psychiatry & Neurology Psychiatry
DX: F31.9 Bipolar disorder, unspecified (principal); F15.20 Other stimulant dependence, uncomplicated; F41.9 Anxiety disorder, unspecified; I10 Essential (primary) hypertension; N61.0 Mastitis without abscess; L73.9 Follicular disorder, unspecified; G89.29 Other chronic pain; M54.9 Dorsalgia, unspecified; M25.571 Pain in right ankle and joints of right foot; M25.551 Pain in right hip; M25.552 Pain in left hip; G47.00 Insomnia, unspecified; E66.9 Obesity, unspecified; Z68.38 Body mass index [BMI] 38.0-38.9, adult; F17.210 Nicotine dependence, cigarettes, uncomplicated; Z71.6 Tobacco abuse counseling; Z79.3 Long term (current) use of hormonal contraceptives; Z79.899 Other long term (current) drug therapy; Z81.8 Family history of other mental and behavioral disorders; Z83.3 Family history of diabetes mellitus
CPT/HCPCS: 80053; 80061; 80306; 81001; 82075; 83036; 84443; 85025; 96372; 99285

== ENCOUNTER 2020-02-11 11:14 | Inpatient (IN) | payer MEDICAID, OTHER ==
--- NOTE | 2020-02-11 11:29 | ED ---
Psych HPI - General Stated Complaint: Mental Health Time Seen by Provider: 02/11/20 11:17 Source: patient, EMS, RN notes reviewed Mode of arrival: EMS Limitations: no limitations - History of Present Illness Initial Comments: 29-year-old female presents emergency from via EMS for psychiatric evaluation. Patient states that she has severe panic attack, is very manic at this time. She states she cannot find her So She Is Screaming throughout the House and Became Very Upset and Which She Called EMS. Patient Denies Being Suicidal or Homicidal. Patient Does Have a History of Bipolar Disorder. Patient Denies Any Current Drug Use. She States She Does Have a History. No Local Use. Denies Any Physical Complaints. - Related Data Home Medications Medication Instructions Recorded Confirmed Cyanocobalamin [Vitamin B-12] 500 mcg PO DAILY 01/20/20 02/11/20 Medroxyprogesterone Acetate 150 mg IM Q90D 01/20/20 02/11/20 [Depo-Provera] Previous Rx's Medication Instructions Recorded ARIPiprazole IM [Abilify Maintena] 400 mg IM QMONTH #1 vial 01/26/20 ARIPiprazole [Abilify] 15 mg PO DAILY 13 Days tab 01/26/20 Acetaminophen Tab [Tylenol] 650 mg PO Q4HR PRN tab 01/26/20 Doxycycline [Vibramycin] 100 mg PO BID 7 Days cap 01/26/20 Melatonin 6 mg PO HS tablet 01/26/20 Nicotine Polacrilex [Nicorette] 2 mg BUCCAL Q4HR PRN 14 Days gum 01/26/20 cloNIDine HCL [Catapres] 0.1 mg PO BID 30 Days tab 01/26/20 diphenhydrAMINE [Benadryl] 50 mg PO HS 30 Days cap 01/26/20 Allergies Allergy/AdvReac Type Severity Reaction Status Date / Time No Known Allergies Allergy Verified 02/11/20 12:44 Review of Systems ROS Statement: Those systems with pertinent positive or pertinent negative responses have been documented in the HPI. ROS Other: All systems not noted in ROS Statement are negative. Past Medical History Past Medical History: Hypertension Additional Past Medical History / Comment(s): CHRONIC PAIN IN RIGHT LEG/ankle - BROKEN AND REPAIRED WITH METAL; "Dislocated disc" w/lower back & bilat. hip pain. History of Any Multi-Drug Resistant Organisms: None Reported Past Surgical History: Orthopedic Surgery Additional Past Surgical History / Comment(s): RIGHT ANKLE/RIGHT LEG Past Anesthesia/Blood Transfusion Reactions: No Reported Reaction Past Psychological History: Anxiety, Bipolar, Depression Smoking Status: Current every day smoker Past Alcohol Use History: Occasional Additional Past Alcohol Use History / Comment(s): Patient is a smoker of a half a pack per day. She denies any alcohol use marijuana use or street drug use. Note that urine drug screen is positive for methamphetamines. She does have history of using methamphetamines, crack cocaine, opioids and heavy alcohol use. Past Drug Use History: Cocaine, Marijuana, Methamphetamine, Opiates - Past Family History Father Additional Family Medical History / Comment(s): Father is in his 40s with history of bipolar and multiple personality. He is in alf for an armed robbery with also history of alcohol and drug abuse. Brother(s) Additional Family Medical History / Comment(s): Patient has brothers and 2 are incarcerated area which she states they have anger management issues but she is not aware of any medical problems. Patient's 1 sister with no major medical problems that she is aware of. Mother Family Medical History: Diabetes Mellitus Additional Family Medical History / Comment(s): Mother is alive at age 55 with history of diabetes, hypertension, mental health issues. Patient does not have any children. General Exam General appearance: alert, in no apparent distress, anxious Head exam: Present: atraumatic, normocephalic, normal inspection Eye exam: Present: normal appearance, PERRL, EOMI. Absent: scleral icterus, conjunctival injection, periorbital swelling ENT exam: Present: normal exam, normal oropharynx, mucous membranes moist Neck exam: Present: normal inspection, full ROM. Absent: tenderness, meningismus, lymphadenopathy Respiratory exam: Present: normal lung sounds bilaterally. Absent: respiratory distress, wheezes, rales, rhonchi, stridor Cardiovascular Exam: Present: regular rate, normal rhythm, normal heart sounds. Absent: systolic murmur, diastolic murmur, rubs, gallop, clicks Neurological exam: Present: alert, oriented X3 Psychiatric exam: Present: anxious Skin exam: Present: warm, dry, intact, normal color. Absent: rash Course Vital Signs 02/11/20 11:29 Temperature 98 F Pulse Rate 104 H Respiratory 18 Rate Blood Pressure 153/128 O2 Sat by Pulse 98 Oximetry Medical Decision Making - Medical Decision Making Patient was evaluated by EPS and case discussed with psychiatrist. They do recommend inpatient treatment as it patient is really manic at this time. - Lab Data Lab Results 02/11/20 Range/Units 11:33 Urine Opiates Screen Not Detected (NotDetected) Ur Oxycodone Screen Not Detected (NotDetected) Urine Methadone Screen Not Detected (NotDetected) Ur Propoxyphene Screen Not Detected (NotDetected) Ur Barbiturates Screen Not Detected (NotDetected) U Tricyclic Antidepress Not Detected (NotDetected) Ur Phencyclidine Scrn Not Detected (NotDetected) Ur Amphetamines Screen Not Detected (NotDetected) U Methamphetamines Scrn Not Detected (NotDetected) U Benzodiazepines Scrn Not Detected (NotDetected) Urine Cocaine Screen Not Detected (NotDetected) U Marijuana (THC) Screen Not Detected (NotDetected) Disposition Clinical Impression: Acute psychosis, Bipolar disorder, Manic behavior Disposition: TRANSFER TO PSYCH HOSP/UNIT Referrals: Macrina Gallardo MD [Primary Care Provider] - 1-2 days
[2020-02-11] MEDS ORDERED: cloNIDine HCL 0.1 MG TAB PO STA (11:43)
[2020-02-11 12:00] LABS: Amphetamine Screen,Urine Not Detected (NotDetected); Barbiturate Screen,Urine Not Detected (NotDetected); Benzodiazepines Screen,Urine Not Detected (NotDetected); Cocaine Screen,Urine Not Detected (NotDetected); Methadone Screen, Urine Not Detected (NotDetected); Opiate Screen,Urine Not Detected (NotDetected); Oxycodone Screen, Urine Not Detected (NotDetected); Phencyclidine Screen,Urine Not Detected (NotDetected); Tricyclic Antidepressant,Urine Not Detected (NotDetected); Urn Cannabinoid Scrn Not Detected (NotDetected)
[2020-02-11] MEDS ORDERED: LORazepam 1 MG TAB PO STA (13:30)
[2020-02-11] MEDS ORDERED: MAG HYDROX/AL HYDROX/SIMETH 30 ML CUP PO PRN (15:06)
[2020-02-11] MEDS: NICOTINE POLACRILEX 2 MG GUM BUCCAL PRN ×2 (16:17→22:36)
[2020-02-11] MEDS: LORazepam 1 MG TAB PO PRN (18:56)
[2020-02-11] MEDS: MELATONIN 3 MG TABLET PO SCH (19:46)
[2020-02-11] MEDS: cloNIDine HCL 0.1 MG TAB PO SCH (19:46)
[2020-02-11] MEDS: diphenhydrAMINE 25 MG CAP PO SCH (19:47)
[2020-02-11] MEDS: ACETAMINOPHEN TAB 325 MG TAB PO PRN (22:34)
[2020-02-11] MEDS: ZIPRASIDONE 20 MG VIAL IM PRN (22:43)
[2020-02-12] MEDS: LORazepam 1 MG TAB PO PRN ×3 (01:52→17:12)
[2020-02-12] MEDS: ACETAMINOPHEN TAB 325 MG TAB PO PRN (01:52)
[2020-02-12] MEDS: cloNIDine HCL 0.1 MG TAB PO SCH ×2 (08:21→20:02)
[2020-02-12] MEDS: CYANOCOBALAMIN 500 MCG TAB PO SCH (08:21)
[2020-02-12] MEDS: ARIPiprazole 15 MG TAB PO SCH (08:21)
[2020-02-12 08:31] LABS: Basophils % (A) 1 %; Eosinophils # (A) 0.2 k/uL (0-0.7); Eosinophils % (A) 2 %; HCT 39.9 % (34.0-46.0); HGB 12.2 gm/dL (11.4-16.0); Lymphocytes # (A) 1.8 k/uL (1.0-4.8); Lymphocytes % (A) 22 %; MCH 27.3 pg (25.0-35.0); MCHC 30.6 g/dL (31.0-37.0); MCV 89.3 fL (80.0-100.0); Mean Platelet Volume 7.6; Monocytes # (A) 0.4 k/uL (0-1.0); Monocytes % (A) 5 %; Neutrophils # (A) 5.5 k/uL (1.3-7.7); Neutrophils % (A) 68 %; Platelet Count 221 k/uL (150-450); RBC 4.47 m/uL (3.80-5.40); RDW 14.7 % (11.5-15.5)
[2020-02-12 08:45] LABS: ALT 49 U/L (4-34); AST 51 U/L (14-36); African American GFR (CKD) >90 (>60 ml/min/1.73 sqM); Albumin 3.8 g/dL (3.5-5.0); Alkaline Phosphatase 73 U/L (38-126); Anion Gap 6 mmol/L; Blood Urea Nitrogen 14 mg/dL (7-17); Calcium 9.1 mg/dL (8.4-10.2); Carbon Dioxide 26 mmol/L (22-30); Chloride 108 mmol/L (98-107); Cholesterol 177 mg/dL (<200); Glucose 92 mg/dL (74-99); HDL Cholesterol 41 mg/dL (40-60); LDL Cholesterol,Calculated 107 mg/dL (0-99); Non-African American GFR(CKD) >90 (>60 ml/min/1.73 sqM); Potassium 4.6 mmol/L (3.5-5.1); Sodium 140 mmol/L (137-145); Total Bilirubin 0.3 mg/dL (0.2-1.3); Total Protein 6.7 g/dL (6.3-8.2); Triglycerides 147 mg/dL (<150)
[2020-02-12] MEDS: ZIPRASIDONE 20 MG VIAL IM PRN (09:18)
[2020-02-12] MEDS: LIDOCAINE 5% PATCH TOPICAL SCH (10:37)
--- NOTE | 2020-02-12 11:49 | P.MDCNMH ---
History of Present Illness H&P Date: 02/12/20 This is a 29-year-old female patient of Dr. Gallardo the past medical history of hypertension, chronic back pain, mood disorder with possible bipolar disorder. The patient states that she does not follow with a psychiatrist. He was recently hospitalized earlier this month on the mental health unit. She states that she came in here by EMS to the emergency center for severe panic attack and maris. Patient was apparently screaming in the house. She denies any suicidal thoughts. She is complaining of some right sciatica pain which is chronic for her. She states she uses lidocaine patch. She states she's received too many shots in her right hip on her last admission. She denies any other medical complaints and states that she wants to go home today. CBC was unremarkable. Electrolytes and renal function within normal limits. AST slightly high at 51 and ALT 49. TSH 1.640. Urine drug screen negative. Review of Systems Constitutional: Reports fatigue, Denies chills, Denies fever, Denies poor appetite, Denies weight loss Eyes: denies blurred vision, denies pain Ears, nose, mouth and throat: Denies headache, Denies sore throat, Denies vertigo Cardiovascular: Denies chest pain, Denies decreased exercise tolerance, Denies dyspnea on exertion, Denies edema, Denies leg edema, Denies shortness of breath, Denies syncope Respiratory: Denies cough, Denies cough with sputum, Denies dyspnea, Denies excessive sputum, Denies hemoptysis, Denies home oxygen, Denies respiratory infections Gastrointestinal: Denies abdominal pain, Denies diarrhea, Denies loss of appetite, Denies nausea, Denies vomiting Genitourinary: Denies dysuria, Denies hematuria, Denies urgency, Denies urinary frequency Musculoskeletal: Denies frequent falls, Denies gait dysfunction, Denies muscle weakness, Denies myalgias Integumentary: Denies pruritus, Denies rash Neurological: Denies change in mentation, Denies change in speech, Denies numbness, Denies weakness Psychiatric: Reports sleep disturbances, reports anxiety, Denies depression, Denies suicidal ideation Endocrine: Reports fatigue, Denies weight change Physical Examination Gen: This is a obese 29-year-old female. Patient is cooperative for examination. Good eye contact. HEENT: Head is atraumatic, normocephalic. Pupils equal, round. Sclerae is anicteric. NECK: Supple. No JVD. No lymphadenopathy. No thyromegaly. LUNGS: Clear to auscultation. No wheezes or rhonchi. No intercostal retractions. HEART: Regular rate and rhythm. No murmur. ABDOMEN: Soft. Bowel sounds are present. No masses. No tenderness. EXTREMITIES: No pedal edema. No calf tenderness. Dorsalis pedis +2 bila terally. NEUROLOGICAL: Patient is awake, alert and oriented x3. Cranial nerves 2 through 12 are grossly intact. Assessment and Plan 1. Acute psychosis with history of possible bipolar disorder, depression. Patient has been admitted to the mental health unit. Continue current plan per psychiatrist. 2. Hypertension. Continue clonidine 0.1 mg twice daily. 3. History of tobacco use and dependence. Continue nicotine patch. 4. Chronic back pain. Continue Tylenol as needed for pain. Lidocaine patch if okay with psychiatry. Thank you kindly for this consultation. We will follow on an as-needed basis. Patient will have follow-up with Dr. Gallardo after discharge from the hospital. Impression and plan of care have been directed as dictated by the signing ph ysician. Елена Bates nurse practitioner acting as scribe for signing physician. Past Medical History Past Medical History: Hypertension Additional Past Medical History / Comment(s): CHRONIC PAIN IN RIGHT LEG/ankle - BROKEN AND REPAIRED WITH METAL; "Dislocated disc" w/lower back & bilat. hip pain. History of Any Multi-Drug Resistant Organisms: None Reported Past Surgical History: Orthopedic Surgery Additional Past Surgical History / Comment(s): RIGHT ANKLE/RIGHT LEG Past Anesthesia/Blood Transfusion Reactions: No Reported Reaction Past Psychological History: Anxiety, Bipolar, Depression Smoking Status: Current every day smoker Past Alcohol Use History: Occasional Additional Past Alcohol Use History / Comment(s): Patient is a smoker of a half a pack per day. She denies any alcohol use marijuana use or street drug use. Note that urine drug screen is positive for methamphetamines. She does have history of using methamphetamines, crack cocaine, opioids and heavy alcohol use. Past Drug Use History: Cocaine, Marijuana, Methamphetamine, Opiates - Past Family History Father Additional Family Medical History / Comment(s): Father is in his 40s with history of bipolar and multiple personality. He is in group home for an armed robbery with also history of alcohol and drug abuse. Brother(s) Additional Family Medical History / Comment(s): Patient has brothers and 2 are incarcerated area which she states they have anger management issues but she is not aware of any medical problems. Patient's 1 sister with no major medical problems that she is aware of. Mother Family Medical History: Diabetes Mellitus Additional Family Medical History / Comment(s): Mother is alive at age 55 with history of diabetes, hypertension, mental health issues. Patient does not have any children. Medications and Allergies Home Medications Medication Instructions Recorded Confirmed Type Cyanocobalamin [Vitamin B-12] 500 mcg PO DAILY 01/20/20 02/11/20 History Medroxyprogesterone Acetate 150 mg IM Q90D 01/20/20 02/11/20 History [Depo-Provera] ARIPiprazole IM [Abilify Maintena] 400 mg IM QMONTH #1 vial 01/26/20 02/11/20 Rx ARIPiprazole [Abilify] 15 mg PO DAILY 13 Days tab 01/26/20 02/11/20 Rx Acetaminophen Tab [Tylenol] 650 mg PO Q4HR PRN tab 01/26/20 02/11/20 Rx Doxycycline [Vibramycin] 100 mg PO BID 7 Days cap 01/26/20 02/11/20 Rx Melatonin 6 mg PO HS tablet 01/26/20 02/11/20 Rx Nicotine Polacrilex [Nicorette] 2 mg BUCCAL Q4HR PRN 14 Days gum 01/26/20 02/11/20 Rx cloNIDine HCL [Catapres] 0.1 mg PO BID 30 Days tab 01/26/20 02/11/20 Rx diphenhydrAMINE [Benadryl] 50 mg PO HS 30 Days cap 01/26/20 02/11/20 Rx Allergies Allergy/AdvReac Type Severity Reaction Status Date / Time No Known Allergies Allergy Verified 02/11/20 12:44 Physical Exam Vitals: Vital Signs Temp Pulse Pulse Resp BP BP BP 02/12/20 08:23 109 H 131/82 02/12/20 06:40 98.0 F 104 H 18 144/93 02/11/20 15:03 97.7 F 90 16 02/11/20 11:29 98 F 104 H 18 153/128 Pulse Ox 02/12/20 08:23 02/12/20 06:40 02/11/20 15:03 99 02/11/20 11:29 98 Cranial Nerve Examination - Cranial Nerves Cranial Nerve I- Olfactory: Intact Cranial Nerve II- Optic: Intact Cranial Nerve III- Oculomotor: Intact Cranial Nerve IV- Trochlear: Intact Cranial Nerve V- Trigeminal: Intact Cranial Nerve - Abducens: Intact Cranial Nerve VII- Facial: Intact Cranial Nerve VIII- Auditory: Intact Cranial Nerve IX- Glossopharyngeal: Intact Cranial Nerve X- Vagus: Intact Cranial Nerve XI- Accessory: Intact Cranial Nerve XII- Hypoglossal: Intact Results CBC & Chem 7: 02/12/20 07:57 02/12/20 07:57 Labs: Abnormal Lab Results - Last 24 Hours (Table) 02/12/20 Range/Units 07:57 MCHC 30.6 L (31.0-37.0) g/dL
--- NOTE | 2020-02-12 12:08 | P.HP ---
Psychiatric H&P - . 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 HPI: Patient presented to ER yesterday due to screaming and apparently getting manic. As per ER report, she presented to the emergency via EMS for psychiatric evaluation. Patient stated that she had severe panic attack, and was very manic at the time. She states she cannot find her cat and she was screaming throughout the House and became very upset and called EMS. Patient denies being suicidal or homicidal. Patient does Have a history of Bipolar Disorder. Patient denies any current drug use. The patient has been increasingly agitated during the interview and was not able to answer questions appropriately. She was demanding to be discharged and was upset about being in the hospital. The patient reports that she was recently discharged from the mental health unit about 2 weeks ago. The patient reports that she was taking her medications regularly and was sleeping well except for one night. The patient appears somewhat confused and is currently very manic and hyperverbal during the session. Patient was seen wandering the hallways today and appeared to be disheveled and was hyperverbal and intrusive during the session and inappropriate at times. Patient had poor insight and judgment and poor reality testing. She claims that she has not been compliant with her medication. Patient denies any suicidal or homicidal ideations intent or plan. At this time patient denies any auditory or visual hallucinations. PAST PSYCHIATRIC HISTORY: Patient states that she has a history of mood disorder, likely bipolar disorder. Patient claims that she's been compliant with her psychiatric medications. She states that she is previously hospit alized 2 weeks ago. Patient denies any history of suicide attempts in the past. PMH: Hypertension and ankle problems. ALLERGIES: NKDA CHEMICAL DEPENDENCY HISTORY: The patient denies any current drug abuse but had a recent urine drug screen that was positive for methamphetamines. The patient admitted to history of for drug abuse in the past. FAMILY PSYCHIATRIC/SUBSTANCE USE HISTORY: Father has bipolar disorder and abuses drugs. SOCIAL HISTORY: Patient was born and raised in [facility] and claims to have gone to college for a "landscaping" at [employer]. She claims that she has no legal problems and currently works in a fast food restaurant has no kids is single and lives with her mother and apartment.. Allergies Allergy/AdvReac Type Severity Reaction Status Date / Time No Known Allergies Allergy Verified 02/11/20 12:44 Vital Signs Temp 98.0 F 02/12/20 06:40 Pulse 109 H 02/12/20 08:23 Resp 18 02/12/20 06:40 BP 131/82 02/12/20 08:23 Pulse Ox 99 02/11/20 15:03 Intake & Output 02/11/20 02/12/20 02/12/20 18:59 06:59 18:59 Weight 117.934 kg Laboratory Last Values WBC 8.0 k/uL (3.8-10.6) 02/12/20 07:57 RBC 4.47 m/uL (3.80-5.40) 02/12/20 07:57 Hgb 12.2 gm/dL (11.4-16.0) 02/12/20 07:57 Hct 39.9 % (34.0-46.0) 02/12/20 07:57 MCV 89.3 fL (80.0-100.0) 02/12/20 07:57 MCH 27.3 pg (25.0-35.0) 02/12/20 07:57 MCHC 30.6 g/dL (31.0-37.0) L 02/12/20 07:57 RDW 14.7 % (11.5-15.5) 02/12/20 07:57 Plt Count 221 k/uL (150-450) 02/12/20 07:57 Neutrophils % 68 % 02/12/20 07:57 Lymphocytes % 22 % 02/12/20 07:57 Monocytes % 5 % 02/12/20 07:57 Eosinophils % 2 % 02/12/20 07:57 Basophils % 1 % 02/12/20 07:57 Neutrophils # 5.5 k/uL (1.3-7.7) 02/12/20 07:57 Lymphocytes # 1.8 k/uL (1.0-4.8) 02/12/20 07:57 Monocytes # 0.4 k/uL (0-1.0) 02/12/20 07:57 Eosinophils # 0.2 k/uL (0-0.7) 02/12/20 07:57 Basophils # 0.0 k/uL (0-0.2) 02/12/20 07:57 Sodium 140 mmol/L (137-145) 02/12/20 07:57 Potassium 4.6 mmol/L (3.5-5.1) 02/12/20 07:57 Chloride 108 mmol/L (98-107) H 02/12/20 07:57 Carbon Dioxide 26 mmol/L (22-30) 02/12/20 07:57 Anion Gap 6 mmol/L 02/12/20 07:57 BUN 14 mg/dL (7-17) 02/12/20 07:57 Creatinine 0.75 mg/dL (0.52-1.04) 02/12/20 07:57 Est GFR (CKD-EPI)AfAm >90 (>60 ml/min/1.73 sqM) 02/12/20 07:57 Est GFR (CKD-EPI)NonAf >90 (>60 ml/min/1.73 sqM) 02/12/20 07:57 Glucose 92 mg/dL (74-99) 02/12/20 07:57 Calcium 9.1 mg/dL (8.4-10.2) 02/12/20 07:57 Total Bilirubin 0.3 mg/dL (0.2-1.3) 02/12/20 07:57 AST 51 U/L (14-36) H 02/12/20 07:57 ALT 49 U/L (4-34) H 02/12/20 07:57 Alkaline Phosphatase 73 U/L (38-126) 02/12/20 07:57 Total Protein 6.7 g/dL (6.3-8.2) 02/12/20 07:57 Albumin 3.8 g/dL (3.5-5.0) 02/12/20 07:57 Triglycerides 147 mg/dL (<150) 02/12/20 07:57 Cholesterol 177 mg/dL (<200) 02/12/20 07:57 LDL Cholesterol, Calc 107 mg/dL (0-99) H 02/12/20 07:57 HDL Cholesterol 41 mg/dL (40-60) 02/12/20 07:57 TSH 1.640 mIU/L (0.465-4.680) 02/12/20 07:57 Urine Opiates Screen Not Detected (NotDetected) 02/11/20 11:33 Ur Oxycodone Screen Not Detected (NotDetected) 02/11/20 11:33 Urine Methadone Screen Not Detected (NotDetected) 02/11/20 11:33 Ur Propoxyphene Screen Not Detected (NotDetected) 02/11/20 11:33 Ur Barbiturates Screen Not Detected (NotDetected) 02/11/20 11:33 U Tricyclic Antidepress Not Detected (NotDetected) 02/11/20 11:33 Ur Phencyclidine Scrn Not Detected (NotDetected) 02/11/20 11:33 Ur Amphetamines Screen Not Detected (NotDetected) 02/11/20 11:33 U Methamphetamines Scrn Not Detected (NotDetected) 02/11/20 11:33 U Benzodiazepines Scrn Not Detected (NotDetected) 02/11/20 11:33 Urine Cocaine Screen Not Detected (NotDetected) 02/11/20 11:33 U Marijuana (THC) Screen Not Detected (NotDetected) 02/11/20 11:33 02/12/20 11:46 Assessment and Plan Assessment: MENTAL STATUS EXAM: General Appearance: Patient appears to be obese, older than stated age is alert, irritable and argumentative. Patient appears to have poor hygiene and grooming. Shovel the parents. Behavior: Patient is seated and appears to be agitated. Irritable and argumentative. Intrusive. Speech: Patient's speech is rapid and pressured. Mood/Affect: Patient reports their mood is "okay", affect is congruent and labile. Suicidality/Homicidality: Patient denies having any homicidal ideation intent or plan. Denies any suicidal ideations intent or plan Perceptions: Patient denies any visual hallucinations and denies any auditory hallucinations Though content/process: [place]. Memory and concentration: AOX3, grossly intact for the purposes of this session. Judgment and insight: poor/impulsive. STRENGTHS/WEAKNESSES: strength is that patient is resilient. Weakness is that patient has poor judgment and is impulsive INTELLECT: average IMPRESSIONS: Bipolar disorder current manic episode with psychotic features Nicotine dependence (1) Bipolar disorder Current Visit: Yes Status: Acute Priority: High Code(s): F31.9 - BIPOLAR DISORDER, UNSPECIFIED SNOMED Code(s): 13061658 Plan: PLAN: -Patient is admitted under voluntary status to MHU for stabilization of psychiatric symptoms and safety. Patient signed for medication consent and is placed in patient's chart. The patient was scheduled to attend milieu therapy. Will encourage compliance. -Medications : Will start patient on Abilify by mouth 5 mg daily for mood stabilization. Patient is due for her next Abilify Maintenna 400 mg dose on 02/22/2020. Start Trazodone 100 mg daily at bedtime for insomnia/mood. -Ativan and Geodon PRN for agitation/aggression -Patient was counselled on substance abuse and desired to cut back on use. Patient states that she is not interested in rehab at this point. -Patient was informed of the risks, benefits and side effects of the medication and patient verbally consented to taking the medications. Patient signed med consent form and was placed in chart. -Internal Medicine consult to perform medical evaluation and physical. -NRT - nicotine patch -SW on board for discharge planning. Encourage patient to participate in groups to work on coping skills.
[2020-02-12 17:02] LABS: Hemoglobin A1C 5.5 % (4.0-6.0)
[2020-02-12] MEDS: NICOTINE POLACRILEX 2 MG GUM BUCCAL PRN (19:11)
[2020-02-12] MEDS: MELATONIN 3 MG TABLET PO SCH (20:03)
[2020-02-12] MEDS: diphenhydrAMINE 25 MG CAP PO SCH ×2 (20:03→23:26)
[2020-02-13] MEDS: LORazepam 1 MG TAB PO PRN ×3 (00:31→21:31)
[2020-02-13] MEDS: ZIPRASIDONE 20 MG VIAL IM PRN (00:31)
[2020-02-13] MEDS: ACETAMINOPHEN TAB 325 MG TAB PO PRN ×2 (05:58→11:49)
[2020-02-13] MEDS: cloNIDine HCL 0.1 MG TAB PO SCH ×2 (09:43→20:26)
[2020-02-13] MEDS: ARIPiprazole 15 MG TAB PO SCH (09:43)
[2020-02-13] MEDS: CYANOCOBALAMIN 500 MCG TAB PO SCH (09:43)
[2020-02-13] MEDS: LIDOCAINE 5% PATCH TOPICAL SCH (10:19)
--- NOTE | 2020-02-13 11:02 | P.PN ---
Progress Note - Text Interval history: The patient's found in the hallway she follows me to a conference room to speak. The patient was admitted again to the mental health unit yesterday. She carries a diagnosis of bipolar 1 disorder most recent manic. The patient is observed throughout the morning pacing in the hallways yelling demonstrating flight of ideas agitation. He requires frequent redirection from staff. In session she demonstrates the same she has a sarcastic irritable tone. It appears that she is already on the Abilify maintena yesterday this was supplemented with an oral dose of the medication. Mental status exam: The patient is a morbidly obese female she has a disheveled appearance she is dressed in her own clothing area eye contact is staring in nature. She is confrontational and speech sarcastic irritable. She demonstrates flight of ideas speech is pressured. She becomes loud numerous times during the conversation and when I observe her in the hallway interacting with others. He is intrusive verbally and in terms of personal space. She reports no suicidal or homicidal thoughts she is reporting no auditory or visual hallucinations she is reporting no specific delusions but may be experiencing paranoid persecutory thoughts. Insight and judgment are poor. She demonstrates no involuntary repetitive movements. Plan: The patient is acutely manic, we will continue her medications as written. We will monitor her for safety. Her urine drug screen was negative, vital signs reviewed. He requires continued psychiatric hospitalization.
[2020-02-13] MEDS: MELATONIN 3 MG TABLET PO SCH (20:26)
[2020-02-13] MEDS: diphenhydrAMINE 25 MG CAP PO SCH (20:26)
[2020-02-13] MEDS: NICOTINE POLACRILEX 2 MG GUM BUCCAL PRN (20:36)
[2020-02-14] MEDS: CYANOCOBALAMIN 500 MCG TAB PO SCH (07:14)
[2020-02-14] MEDS: LIDOCAINE 5% PATCH TOPICAL SCH (07:14)
[2020-02-14] MEDS: cloNIDine HCL 0.1 MG TAB PO SCH ×2 (07:14→22:25)
[2020-02-14] MEDS: ARIPiprazole 15 MG TAB PO SCH (07:14)
[2020-02-14] MEDS: LORazepam 1 MG TAB PO PRN ×2 (08:46→15:53)
[2020-02-14] MEDS: ACETAMINOPHEN TAB 325 MG TAB PO PRN ×2 (08:46→19:36)
--- NOTE | 2020-02-14 10:34 | P.PN ---
Progress Note - Text Interval history: The patient's found in the hallway she follows me to the conference room to speak. She indicates she had difficulty sleeping last night staff recorded she slept 4 hours. Appetite is stable. She indicates that she continues to have phone conversations with her mother. He spontaneously states that she knows that she is loud in terms of speech. Staff report that the patient continues to be loud and hyperverbal which causes disruptions on the mental health unit. She has no questions or concerns regarding her medication she indicates that she has been complying with the Abilify. Mental status exam: The patient is a morbidly obese female appearing her stated age she is dressed in her own clothing she has a disheveled appearance, speech is fluent and spontaneous she is hyperverbal she is pressured. She demonstrates tangential thinking loose associations and at times flight of ideas. She is less focused on paranoid thoughts today. She demonstrates no verbal or physical aggressiveness she demonstrates no involuntary repetitive movements. She is directable in the session. Insight and judgment are impaired. She reports no suicidal or homicidal ideation intent or plan. She is endorsing no auditory or visual hallucinations. Plan: The patient will be continued on current medication. Encouraged to participate appropriately in the milieu. We will provide reality orientation when possible. Vital signs reviewed. She requires continued psychiatric hospitalization.
[2020-02-14] MEDS: MAGNESIUM HYDROXIDE 2,400 MG/10 ML CUP PO PRN (14:25)
[2020-02-14] MEDS: MELATONIN 3 MG TABLET PO SCH (22:25)
[2020-02-14] MEDS: diphenhydrAMINE 25 MG CAP PO SCH (22:25)
[2020-02-15] MEDS: LORazepam 1 MG TAB PO PRN ×3 (01:54→18:48)
[2020-02-15] MEDS: ACETAMINOPHEN TAB 325 MG TAB PO PRN ×3 (02:50→19:26)
[2020-02-15] MEDS: CYANOCOBALAMIN 500 MCG TAB PO SCH (08:28)
[2020-02-15] MEDS: cloNIDine HCL 0.1 MG TAB PO SCH ×2 (08:28→20:58)
[2020-02-15] MEDS: ARIPiprazole 15 MG TAB PO SCH (08:28)
[2020-02-15] MEDS: LIDOCAINE 5% PATCH TOPICAL SCH ×2 (08:28→14:20)
[2020-02-15] MEDS: NICOTINE POLACRILEX 2 MG GUM BUCCAL PRN ×2 (11:32→15:47)
[2020-02-15] MEDS: LITHIUM CARBONATE ER 450 MG TABLET.ER PO SCH (11:49)
--- NOTE | 2020-02-15 12:00 | P.PN ---
Progress Note - Text Progress Note Date: 02/15/20 Interval History: Patient was seen taking part in group today and was directable and agreeable to speak with screen writer in the office. Patient appears to be less irritable however was somewhat argumentative with screen writer. She described the events of what led her to come in to the hospital and was focused on discharge and minimizing her symptoms. She states that "sometimes I feel at home like a manic and have all this energy almost like him doing meth but I am not". She claims that her mood has been "fine" and has been minimizing her symptoms. She states that she was able to sleep well last night. She has been going to groups and has been eating well. Patient was agreeable to be started on lithium today for mood stabilization and to continue on with Abilify until her next injection. At this time patient denies any suicidal or homical ideations, intent or plan. Patient denies any auditory, visual hallucinations and denies any paranoia or delusions. Patient denies any side effects from the medications and has been compliant with meds. Mental Status Exam: General Appearance: Patient appears to be obese, older than stated age is alert, argumentative today. Patient appears to have improving hygiene and grooming. Behavior: Patient is seated and appears to be agitated. Less irritable and argumentative today. Intrusive. Speech: Patient's speech is rapid and pressured. Mood/Affect: Patient reports their mood is "fine", affect is congruent Suicidality/Homicidality: Patient denies having any homicidal ideation intent or plan. Denies any suicidal ideations intent or plan Perceptions: Patient denies any visual hallucinations and denies any auditory hallucinations Though content/process: [place]. Minimizing her symptoms. Logical. Memory and concentration: AOX3, grossly intact for the purposes of this session. Judgment and insight: poor, improving mildly Assessment Bipolar disorder current manic episode with psychotic features Nicotine dependence Plan: -Patient continues to meet criteria for inpatient psychiatric admission for symptom stabilization and safety. Patient has signed adult voluntary form and medication consent and was placed in patient's chart. -Medications: Continue with Abilify by mouth as prescribed for supplementation. Patient is due for her next Abilify Maintenna 400 mg IM dose on 02/22/2020. Patient is agreeable to start lithium 450 mg daily for mood stabilization. Continue with Benadryl 50 mg daily at bedtime for insomnia. Melatonin 6 mg daily at bedtime for sleep. -When necessary Ativan and Geodon for agitation/aggression. -NRT - nicotine patch -SW on board for discharge planning. Encouraged the patient to participate in milieu and attend groups. Likely discharge in 1-2 days.
[2020-02-15] MEDS: MELATONIN 3 MG TABLET PO SCH (20:59)
[2020-02-15] MEDS: diphenhydrAMINE 25 MG CAP PO SCH (20:59)
[2020-02-16] MEDS: ACETAMINOPHEN TAB 325 MG TAB PO PRN ×3 (00:33→12:33)
[2020-02-16] MEDS: LORazepam 1 MG TAB PO PRN ×3 (02:35→19:46)
[2020-02-16] MEDS: LITHIUM CARBONATE ER 450 MG TABLET.ER PO SCH (08:14)
[2020-02-16] MEDS: cloNIDine HCL 0.1 MG TAB PO SCH ×2 (08:14→20:35)
[2020-02-16] MEDS: ARIPiprazole 15 MG TAB PO SCH (08:14)
[2020-02-16] MEDS: LIDOCAINE 5% PATCH TOPICAL SCH ×2 (08:14→12:30)
[2020-02-16] MEDS: CYANOCOBALAMIN 500 MCG TAB PO SCH (08:14)
[2020-02-16 08:17] VITALS: RESP 20
--- NOTE | 2020-02-16 11:08 | P.PN ---
Progress Note - Text Progress Note Date: 02/16/20 Interval History: Patient was seen wandering the hallways this morning and was directable and ag reeable to speak with mortgage loan underwriter in the office. Patient appears to be less irritable this morning however was fairly argumentative with mortgage loan underwriter and was fixated on discharge today. She claims that she isn't having "meltdowns" during the day and states that she was yelling and had to remove herself from various situations and claims that she has been trying to use her coping skills. Patient continues to have poor insight and is impulsive at times. She was also noted to be speaking loudly/yelling over the phone and hitting the phone repeatedly at times during conversation. She states that her mood has been gradually improving. She denies any anxiety at this time. She states that she was able to sleep well last night. At this time patient denies any suicidal or homical ideations, intent or plan. Patient denies any auditory, visual hallucinations and denies any paranoia or delusions. Patient denies any side effects from the medications and has been compliant with meds. Mental Status Exam: General Appearance: Patient appears to be obese, older than stated age is alert, argumentative today. Patient appears to have improving hygiene and grooming. Behavior: Patient is seated and appears to be agitated. Less irritable and argumentative today. Intrusive. Speech: Patient's speech is rapid and pressured. Mood/Affect: Patient reports their mood is "ok", affect is congruent Suicidality/Homicidality: Patient denies having any homicidal ideation intent or plan. Denies any suicidal ideations intent or plan Perceptions: Patient denies any visual hallucinations and denies any auditory hallucinations Though content/process: [place]. Minimizing her symptoms. Logical. Focused on discharge. Memory and concentration: AOX3, grossly intact for the purposes of this session. Judgment and insight: improving mildly Assessment Bipolar disorder current manic episode with psychotic features Nicotine dependence Plan: -Patient continues to meet criteria for inpatient psychiatric admission for symptom stabilization and safety. Patient has signed adult voluntary form and medication consent and was placed in patient's chart. -Medications: Continue with Abilify 15 mg by mouth as prescribed for supplementation. Patient is due for her next Abilify Maintenna 400 mg IM dose on 02/22/2020. Switched lithium 450 mg nightly for mood stabilization. Continue with Benadryl 50 mg daily at bedtime for insomnia. Melatonin 6 mg daily at bedtime for sleep. -When necessary Ativan and Geodon for agitation/aggression. -NRT - nicotine patch -SW on board for discharge planning. Encouraged the patient to participate in milieu and attend groups. Likely discharge back home tomorrow.
[2020-02-16] MEDS: diphenhydrAMINE 25 MG CAP PO SCH (20:35)
[2020-02-16] MEDS: MELATONIN 3 MG TABLET PO SCH (20:35)
[2020-02-16] MEDS ORDERED: LITHIUM CARBONATE ER 450 MG TABLET.ER PO SCH (21:00)
[2020-02-16 22:55] VITALS: TEMP 97.8
[2020-02-17] MEDS: ACETAMINOPHEN TAB 325 MG TAB PO PRN ×2 (00:02→05:53)
[2020-02-17] MEDS: MAGNESIUM HYDROXIDE 2,400 MG/10 ML CUP PO PRN (00:03)
[2020-02-17] MEDS: LORazepam 1 MG TAB PO PRN (05:53)
--- NOTE | 2020-02-17 09:31 | P.DS ---
Providers Date of admission: 02/11/20 14:28 Expected date of discharge: 02/17/20 Attending physician: Richard Lam MD Consults: 02/11/20 15:06 Consult Physician Routine Consulting Provider: Macrina Gallardo Consult Reason/Comments: H & P and medical care Do you want consulting provider notified?: Yes Primary care physician: Macrina Gallardo - Discharge Diagnosis(es) (1) Bipolar disorder, curr episode manic w/o psychotic features, moderate Current Visit: Yes Status: Acute Priority: High (2) Nicotine dependence Current Visit: Yes Status: Acute Priority: Low Hospital Course: Admission HPI: Admission note was completed by Dr. Renner "Patient is a 29 years old female who currently lives with her mother and apartment has no kids 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 Patient presented to ER yesterday due to screaming and apparently getting manic. As per ER report, she presented to the emergency via EMS for psychiatric evaluation. Patient stated that she had severe panic attack, and was very manic at the time. She states she cannot find her cat and she was screaming throughout the House and became very upset and called EMS. Patient denies being suicidal or homicidal. Patient does Have a history of Bipolar Disorder. Patient denies any current drug use. The patient has been increasingly agitated during the interview and was not able to answer questions appropriately. She was demanding to be discharged and was upset about being in the hospital. The patient reports that she was recently discharged from the mental health unit about 2 weeks ago. The patient reports that she was taking her medications regularly and was sleeping well except for one night. The patient appears somewhat confused and is currently very manic and hyperverbal during the session. Patient was seen wandering the hallways today and appeared to be disheveled and was hyperverbal and intrusive during the session and inappropriate at times. Patient had poor insight and judgment and poor reality testing. She claims that she has not been compliant with her medication. Patient denies any suicidal or homicidal ideations intent or plan. At this time patient denies any auditory or visual hallucinations." Hospital course: Upon admission to the unit patient was initially irritable, bizarre and intrusive. Patient was however directable and agreeable to commence treatment. Patient got along well with other patients on the unit and followed unit protocol. Patient was compliant with the medications and denied any side effects throughout hospital course. Patient was started on Abilify by mouth 15 mg daily for mood stabilization/psychosis in the supplementation as patient is currently on Abilify Maintenna. Patient is scheduled to have her next Abilify Maintenna 400 mg IM monthly dose on 02/22/2020. Patient was placed on lithium 450 mg nightly dose for mood stabilization. Patient was also started on Benadryl 50 mg daily at bedtime for insomnia and melatonin 6 mg nightly for sleep. Patient spoke of her stressors and engaged in therapy both group and individual. Patient claims that she worked on her coping skills during groups and we'll continue to work on her anger management as an outpatient. Patient was also seen by medical team for history and physical exam. Throughout the course of the hospitalization patient gradually improved with regards to mood lability, agitation/irritability, behaviors and impulse control, sleep and became future oriented with improved insight and judgment. On the day of discharge patient denied any suicidal or homicidal ideations intent or plan denied any auditory or visual hallucinations. Patient endorsed wanting to live for her future and her family. The patient denied any access to guns or weapons. Patient denied any paranoia and did not endorse any delusions. Patient does not have a significant history of substance abuse however was counseled on abstaining from all substances including alcohol and marijuana. Patient was also counseled on the medications and need for regular compliance and was encouraged to follow-up with their outpatient appointment for mental health and also for primary care. Prior to discharge a family meeting will be arranged by long term care social worker to answer any questions and ensure safety upon discharge. Mental status exam: General Appearance: Patient appears to be stated age is alert, directable, and cooperative. Patient is in no acute distress and has fair hygiene and grooming Behavior: Patient is calmly seated without any agitated behavior. Cooperative today. Speech: Patient's speech is fluent and nonpressured. Mood/Affect: Patient reports their mood is "better", affect is congruent and euthymic. Suicidality/Homicidality: Patient denies having any suicidal or homicidal ideation intent or plan. Perceptions: Patient denies any auditory or visual hallucinations. Though content/process: There is no evidence of any delusional thought content and thought process is linear and goal-directed. more future oriented Memory and concentration: AOX3, grossly intact for the purposes of this session. Can spell "WORLD" backwards correctly. Judgment and insight: Improved with guarded prognosis Impression: Bipolar disorder, current episode manic without psychotic features Nicotine dependence Plan: -Continue with discharge today as patient has improved and stabilized psychiatrically and is not currently an imminent threat to herself and/or others. -Continue medications: Continue with Abilify 15 mg by mouth for mood stabilization/psychosis as a supplementation to patient's Abilify Maintenna which is due on 02/22/20 400 mg IM dose and continued thereafter monthly. Continue with lithium 450 mg nightly for mood stabilization, Benadryl 50 mg nightly for insomnia, melatonin 6 mg nightly for sleep. -Patient was counseled on the need for medication compliance and appropriate follow-up at mental health and also primary care for medical issues. Patient verbalized understanding and agreed. -Social work to arrange for and conduct family meeting to ensure safety upon discharge and answer any questions/concerns. Social work also to arrange for patients follow up appointments with [facility] for psychiatric care along with follow up with primary care provider. -Patient counseled on abstaining from recreational drugs and marijuana and alcohol. Was informed/educated on the adverse effects on their physical and mental health. Patient verbally agreed and understood. -Patient was instructed to return to the hospital or seek immediate medical care if their psychiatric or medical symptoms do worsen or reoccur. Allergies Allergy/AdvReac Type Severity Reaction Status Date / Time No Known Allergies Allergy Verified 02/11/20 12:44 Laboratory Results WBC 8.0 k/uL (3.8-10.6) 02/12/20 07:57 RBC 4.47 m/uL (3.80-5.40) 02/12/20 07:57 Hgb 12.2 gm/dL (11.4-16.0) 02/12/20 07:57 Hct 39.9 % (34.0-46.0) 02/12/20 07:57 MCV 89.3 fL (80.0-100.0) 02/12/20 07:57 MCH 27.3 pg (25.0-35.0) 02/12/20 07:57 MCHC 30.6 g/dL (31.0-37.0) L 02/12/20 07:57 RDW 14.7 % (11.5-15.5) 02/12/20 07:57 Plt Count 221 k/uL (150-450) 02/12/20 07:57 Neutrophils % 68 % 02/12/20 07:57 Lymphocytes % 22 % 02/12/20 07:57 Monocytes % 5 % 02/12/20 07:57 Eosinophils % 2 % 02/12/20 07:57 Basophils % 1 % 02/12/20 07:57 Neutrophils # 5.5 k/uL (1.3-7.7) 02/12/20 07:57 Lymphocytes # 1.8 k/uL (1.0-4.8) 02/12/20 07:57 Monocytes # 0.4 k/uL (0-1.0) 02/12/20 07:57 Eosinophils # 0.2 k/uL (0-0.7) 02/12/20 07:57 Basophils # 0.0 k/uL (0-0.2) 02/12/20 07:57 Sodium 140 mmol/L (137-145) 02/12/20 07:57 Potassium 4.6 mmol/L (3.5-5.1) 02/12/20 07:57 Chloride 108 mmol/L (98-107) H 02/12/20 07:57 Carbon Dioxide 26 mmol/L (22-30) 02/12/20 07:57 Anion Gap 6 mmol/L 02/12/20 07:57 BUN 14 mg/dL (7-17) 02/12/20 07:57 Creatinine 0.75 mg/dL (0.52-1.04) 02/12/20 07:57 Est GFR (CKD-EPI)AfAm >90 (>60 ml/min/1.73 sqM) 02/12/20 07:57 Est GFR (CKD-EPI)NonAf >90 (>60 ml/min/1.73 sqM) 02/12/20 07:57 Glucose 92 mg/dL (74-99) 02/12/20 07:[address] Glu mg/dL 111 02/12/20 07:57 Hemoglobin A1c 5.5 % (4.0-6.0) 02/12/20 07:57 Calcium 9.1 mg/dL (8.4-10.2) 02/12/20 07:57 Total Bilirubin 0.3 mg/dL (0.2-1.3) 02/12/20 07:57 AST 51 U/L (14-36) H 02/12/20 07:57 ALT 49 U/L (4-34) H 02/12/20 07:57 Alkaline Phosphatase 73 U/L (38-126) 02/12/20 07:57 Total Protein 6.7 g/dL (6.3-8.2) 02/12/20 07:57 Albumin 3.8 g/dL (3.5-5.0) 02/12/20 07:57 Triglycerides 147 mg/dL (<150) 02/12/20 07:57 Cholesterol 177 mg/dL (<200) 02/12/20 07:57 LDL Cholesterol, Calc 107 mg/dL (0-99) H 02/12/20 07:57 HDL Cholesterol 41 mg/dL (40-60) 02/12/20 07:57 TSH 1.640 mIU/L (0.465-4.680) 02/12/20 07:57 Urine Opiates Screen Not Detected (NotDetected) 02/11/20 11:33 Ur Oxycodone Screen Not Detected (NotDetected) 02/11/20 11:33 Urine Methadone Screen Not Detected (NotDetected) 02/11/20 11:33 Ur Propoxyphene Screen Not Detected (NotDetected) 02/11/20 11:33 Ur Barbiturates Screen Not Detected (NotDetected) 02/11/20 11:33 U Tricyclic Antidepress Not Detected (NotDetected) 02/11/20 11:33 Ur Phencyclidine Scrn Not Detected (NotDetected) 02/11/20 11:33 Ur Amphetamines Screen Not Detected (NotDetected) 02/11/20 11:33 U Methamphetamines Scrn Not Detected (NotDetected) 02/11/20 11:33 U Benzodiazepines Scrn Not Detected (NotDetected) 02/11/20 11:33 Urine Cocaine Screen Not Detected (NotDetected) 02/11/20 11:33 U Marijuana (THC) Screen Not Detected (NotDetected) 02/11/20 11:33 Vital Signs Temp 97.8 F 02/16/20 22:00 Pulse 93 02/16/20 20:35 Resp 20 02/16/20 20:35 BP 161/95 02/16/20 20:35 Pulse Ox 99 02/16/20 00:34 Patient Condition at Discharge: Stable Plan - Discharge Summary New Discharge Prescriptions: New ARIPiprazole [Abilify] 15 mg PO DAILY 14 Days tab cloNIDine HCL [Catapres] 0.1 mg PO BID 30 Days tab Lidocaine 5% Patch [Lidoderm 5% Patch] 1 patch TOPICAL DAILY patch [place] Carbonate ER [Lithobid] 450 mg PO HS 30 Days tablet.er Melatonin 6 mg PO HS 30 Days tablet Nicotine Polacrilex [Nicorette] 2 mg BUCCAL Q4HR PRN 30 Days gum PRN Reason: Nicotine Cravings Acetaminophen Tab [Tylenol] 650 mg PO Q4HR PRN tab PRN Reason: Pain/Discomfort Cyanocobalamin [Vitamin B-12] 500 mcg PO DAILY 30 Days tab Continue Medroxyprogesterone Acetate [Depo-Provera] 150 mg IM Q90D ARIPiprazole IM [Abilify Maintena] 400 mg IM QMONTH #1 vial diphenhydrAMINE [Benadryl] 50 mg PO HS 30 Days cap Discontinued Cyanocobalamin [Vitamin B-12] 500 mcg PO DAILY ARIPiprazole [Abilify] 15 mg PO DAILY 13 Days tab cloNIDine HCL [Catapres] 0.1 mg PO BID 30 Days tab Melatonin 6 mg PO HS tablet Nicotine Polacrilex [Nicorette] 2 mg BUCCAL Q4HR PRN 14 Days gum PRN Reason: Nicotine Cravings Acetaminophen Tab [Tylenol] 650 mg PO Q4HR PRN tab PRN Reason: Pain/Discomfort Doxycycline [Vibramycin] 100 mg PO BID 7 Days cap Discharge Medication List Medroxyprogesterone Acetate [Depo-Provera] 150 mg IM Q90D 01/20/20 [History] ARIPiprazole IM [Abilify Maintena] 400 mg IM QMONTH #1 vial 02/17/20 [Rx] ARIPiprazole [Abilify] 15 mg PO DAILY 14 Days tab 02/17/20 [Rx] Acetaminophen Tab [Tylenol] 650 mg PO Q4HR PRN tab 02/17/20 [Rx] Cyanocobalamin [Vitamin B-12] 500 mcg PO DAILY 30 Days tab 02/17/20 [Rx] Lidocaine 5% Patch [Lidoderm 5% Patch] 1 patch TOPICAL DAILY patch 02/17/20 [Rx] [place]imb[place] Carbonate ER [Lithobid] 450 mg PO HS 30 Days tablet.er 02/17/20 [Rx] Melatonin 6 mg PO HS 30 Days tablet 02/17/20 [Rx] Nicotine Polacrilex [Nicorette] 2 mg BUCCAL Q4HR PRN 30 Days gum 02/17/20 [Rx] cloNIDine HCL [Catapres] 0.1 mg PO BID 30 Days tab 02/17/20 [Rx] diphenhydrAMINE [Benadryl] 50 mg PO HS 30 Days cap 02/17/20 [Rx] Follow up Appointment(s)/Referral(s): [facility] [Outside] - 02/17/20 2:30 pm (02-17-20 @ 2:30 with Ani Love at [facility] 02-22-20 @ 2:00 with Gisella Harrison at [facility]) Macrina Gallardo MD [Primary Care Provider] - 1-2 days Activity/Diet/Wound Care/Special Instructions: Activity and diet as tolerated. Avoid the use of street drugs and alcohol. Take all medications as prescribed. When you are in need of refills on your medications please contact your medical provider and/or outpatient psychiatrist to have this done. Please go to scheduled outpatient appointment for aftercare treatment. If symptoms return or become worse, call the crisis line at and/or go to the nearest emergency room for evaluation Discharge Disposition: HOME SELF-CARE
[2020-02-17] MEDS: CYANOCOBALAMIN 500 MCG TAB PO SCH (09:35)
[2020-02-17] MEDS: cloNIDine HCL 0.1 MG TAB PO SCH (09:35)
[2020-02-17] MEDS: ARIPiprazole 15 MG TAB PO SCH (09:35)
[2020-02-17 09:40] VITALS: BP 132/91; PULSE 110
[2020-02-17] MEDS: NICOTINE POLACRILEX 2 MG GUM BUCCAL PRN (10:55)
== END 2020-02-17 12:20 | disposition home or self-care (01) | DRG 885 ==
LOC: EC 11:14 → 3MHU 14:28
PROVIDERS: ADMIT Psychiatry & Neurology Psychiatry; ATTEND Psychiatry & Neurology Psychiatry
DX: F31.12 Bipolar disorder, current episode manic without psychotic features, moderate (principal); F17.210 Nicotine dependence, cigarettes, uncomplicated; F41.0 Panic disorder [episodic paroxysmal anxiety]; G47.00 Insomnia, unspecified; I10 Essential (primary) hypertension; G89.29 Other chronic pain; M54.9 Dorsalgia, unspecified; F15.11 Other stimulant abuse, in remission; F12.11 Cannabis abuse, in remission; F14.11 Cocaine abuse, in remission; F11.11 Opioid abuse, in remission; Z81.8 Family history of other mental and behavioral disorders; Z82.49 Family history of ischemic heart disease and other diseases of the circulatory system; Z83.3 Family history of diabetes mellitus; Z79.899 Other long term (current) drug therapy
CPT/HCPCS: 80053; 80061; 80306; 82075; 83036; 84443; 85025; 99285

== ENCOUNTER 2020-02-19 02:02 | Emergency (ER) | payer OTHER ==
[2020-02-19 03:14] LABS: Amphetamine Screen,Urine Not Detected (NotDetected); Barbiturate Screen,Urine Not Detected (NotDetected); Benzodiazepines Screen,Urine Detected (NotDetected); Cocaine Screen,Urine Not Detected (NotDetected); Methadone Screen, Urine Not Detected (NotDetected); Opiate Screen,Urine Not Detected (NotDetected); Oxycodone Screen, Urine Not Detected (NotDetected); Phencyclidine Screen,Urine Not Detected (NotDetected); Tricyclic Antidepressant,Urine Not Detected (NotDetected); Urn Cannabinoid Scrn Not Detected (NotDetected)
--- NOTE | 2020-02-19 03:25 | ED ---
Psych HPI - General Source: patient, police Mode of arrival: ambulatory - History of Present Illness MD Complaint: other Onset/Timin -: days(s) Associated Psychiatric Symptoms: racing thoughts Quality: getting worse Improves With: none Worsens With: none Associated Symptoms: insomnia <Te Herrera - Last Filed: 02/19/20 08:03> <Crescencio Turner - Last Filed: 02/19/20 13:05> - General Chief Complaint: Psychiatric Symptoms Stated Complaint: mental health Time Seen by Provider: 02/19/20 02:14 - Related Data Home Medications Medication Instructions Recorded Confirmed Medroxyprogesterone Acetate 150 mg IM Q90D 01/20/20 02/19/20 [Depo-Provera] Previous Rx's Medication Instructions Recorded ARIPiprazole IM [Abilify Maintena] 400 mg IM QMONTH #1 vial 02/17/20 ARIPiprazole [Abilify] 15 mg PO DAILY 14 Days tab 02/17/20 Acetaminophen Tab [Tylenol] 650 mg PO Q4HR PRN tab 02/17/20 Cyanocobalamin [Vitamin B-12] 500 mcg PO DAILY 30 Days tab 02/17/20 Lidocaine 5% Patch [Lidoderm 5% 1 patch TOPICAL DAILY patch 02/17/20 Patch] [place] Carbonate ER [Lithobid] 450 mg PO HS 30 Days tablet.er 02/17/20 Melatonin 6 mg PO HS 30 Days tablet 02/17/20 Nicotine Polacrilex [Nicorette] 2 mg BUCCAL Q4HR PRN 30 Days gum 02/17/20 cloNIDine HCL [Catapres] 0.1 mg PO BID 30 Days tab 02/17/20 diphenhydrAMINE [Benadryl] 50 mg PO HS 30 Days cap 02/17/20 Allergies Allergy/AdvReac Type Severity Reaction Status Date / Time No Known Allergies Allergy Verified 02/19/20 06:44 Review of Systems ROS Other: All systems not noted in ROS Statement are negative. Constitutional: Denies: fever Respiratory: Denies: cough, dyspnea Cardiovascular: Denies: chest pain, palpitations Gastrointestinal: Denies: abdominal pain, vomiting, diarrhea Genitourinary: Denies: dysuria, hematuria Musculoskeletal: Denies: back pain Skin: Denies: rash Neurological: Denies: headache, weakness, numbness Psychiatric: Reports: anxiety. Denies: auditory hallucinations, visual hallucinations, homicidal thoughts, suicidal thoughts <Te Herrera - Last Filed: 02/19/20 08:03> ROS Other: All systems not noted in ROS Statement are negative. <Crescencio Turner - Last Filed: 02/19/20 13:05> ROS Statement: Those systems with pertinent positive or pertinent negative responses have been documented in the HPI. Past Medical History Past Medical History: Hypertension Additional Past Medical History / Comment(s): CHRONIC PAIN IN RIGHT LEG/ankle - BROKEN AND REPAIRED WITH METAL; "Dislocated disc" w/lower back & bilat. hip pain. History of Any Multi-Drug Resistant Organisms: None Reported Past Surgical History: Orthopedic Surgery Additional Past Surgical History / Comment(s): RIGHT ANKLE/RIGHT LEG Past Anesthesia/Blood Transfusion Reactions: No Reported Reaction Past Psychological History: Anxiety, Bipolar, Depression Smoking Status: Current every day smoker Past Alcohol Use History: Occasional Past Drug Use History: Marijuana - Past Family History Father Additional Family Medical History / Comment(s): Father is in his 40s with history of bipolar and multiple personality. He is in care home for an armed robbery with also history of alcohol and drug abuse. Brother(s) Additional Family Medical History / Comment(s): Patient has brothers and 2 are incarcerated area which she states they have anger management issues but she is not aware of any medical problems. Patient's 1 sister with no major medical problems that she is aware of. Mother Family Medical History: Diabetes Mellitus Additional Family Medical History / Comment(s): Mother is alive at age 55 with history of diabetes, hypertension, mental health issues. Patient does not have any children. <Te Herrera - Last Filed: 02/19/20 08:03> General Exam Limitations: no limitations General appearance: alert, in no apparent distress Head exam: Present: atraumatic, normocephalic Eye exam: Present: normal appearance. Absent: scleral icterus, conjunctival injection Neck exam: Present: normal inspection, full ROM Respiratory exam: Present: normal lung sounds bilaterally. Absent: respiratory distress, wheezes, rales, rhonchi, stridor Cardiovascular Exam: Present: regular rate, normal rhythm, normal heart sounds. Absent: systolic murmur, diastolic murmur, rubs, gallop GI/Abdominal exam: Present: soft. Absent: distended, tenderness, guarding, rebound, rigid, mass Extremities exam: Present: normal inspection, normal capillary refill. Absent: pedal edema, calf tenderness Back exam: Present: normal inspection. Absent: CVA tenderness (R), CVA tenderness (L), vertebral tenderness Neurological exam: Present: alert Skin exam: Present: warm, dry, intact, normal color. Absent: rash <Te Herrera - Last Filed: 02/19/20 08:03> Course Vital Signs 02/19/20 02/19/20 02:06 06:49 Temperature 98.5 F 98.3 F Pulse Rate 122 H 94 Respiratory 20 16 Rate Blood Pressure 148/95 142/95 O2 Sat by Pulse 98 99 Oximetry Medical Decision Making - EKG Data -: EKG Interpreted by Me EKG shows normal: sinus rhythm, axis (Normal), intervals (Normal), QRS complexes (Normal), ST-T waves (Normal) Rate: normal (Rate 94 bpm) Interpretation: normal EKG <Te Herrera - Last Filed: 02/19/20 08:03> <Crescencio Turner - Last Filed: 02/19/20 13:05> - Medical Decision Making Dr. Rosas signed out the patient to me at 7 AM. EPS evaluated the patient and determined the patient could safely go home. (Crescencio Turner) - Lab Data Lab Results 02/19/20 Range/Units 02:55 Urine Opiates Screen Not Detected (NotDetected) Ur Oxycodone Screen Not Detected (NotDetected) Urine Methadone Screen Not Detected (NotDetected) Ur Propoxyphene Screen Not Detected (NotDetected) Ur Barbiturates Screen Not Detected (NotDetected) U Tricyclic Antidepress Not Detected (NotDetected) Ur Phencyclidine Scrn Not Detected (NotDetected) Ur Amphetamines Screen Not Detected (NotDetected) U Methamphetamines Scrn Not Detected (NotDetected) U Benzodiazepines Scrn Detected H (NotDetected) Urine Cocaine Screen Not Detected (NotDetected) U Marijuana (THC) Screen Not Detected (NotDetected) Disposition <Te Herrera - Last Filed: 02/19/20 08:03> Is patient prescribed a controlled substance at d/c from ED?: No Time of Disposition: 13:04 <Crescencio Turner - Last Filed: 02/19/20 13:05> Clinical Impression: Acute anxiety Disposition: HOME SELF-CARE Condition: Good Instructions (If sedation given, give patient instructions): Anxiety (ED) Referrals: Macrina Gallardo MD [Primary Care Provider] - 1-2 days
[2020-02-19] MEDS ORDERED: diphenhydrAMINE 50 MG CAP PO STA (05:17)
[2020-02-19 13:18] VITALS: BP 135/85; PULSE 100; RESP 18; TEMP 98.2
== END 2020-02-19 13:21 | disposition home or self-care (01) ==
LOC: EC 02:02
DX: F41.9 Anxiety disorder, unspecified (principal); F17.200 Nicotine dependence, unspecified, uncomplicated; Z79.3 Long term (current) use of hormonal contraceptives; Z81.8 Family history of other mental and behavioral disorders
CPT/HCPCS: 80306; 93005; 99284

== ENCOUNTER 2020-03-26 18:44 | Emergency (ER) | payer OTHER ==
--- NOTE | 2020-03-26 19:02 | ED ---
Psych HPI - General Stated Complaint: Mental Health Time Seen by Provider: 03/26/20 18:51 Source: RN notes reviewed, old records reviewed Limitations: no limitations, altered mental status (Manic episode) - History of Present Illness Initial Comments: This is a 29-year-old female presented today for evaluation manic episode. Also admits to not taking some of her medications. Patient denies drug or alcohol abuse. She is having flight of ideas is a poor story and laughing uncontrollably talks nonstop about stephanie OLIVEIRA Complaint: altered mental status (Manic event) -: days(s) Associated Psychiatric Symptoms: racing thoughts, delusions Quality: constant Improves With: none Worsens With: none Context: not taking psychiatric medications Associated Symptoms: denies other symptoms Treatments Prior to Arrival: none, placed on mental health hold - Related Data Home Medications Medication Instructions Recorded Confirmed Medroxyprogesterone Acetate 150 mg IM Q90D 01/20/20 02/19/20 [Depo-Provera] Previous Rx's Medication Instructions Recorded ARIPiprazole IM [Abilify Maintena] 400 mg IM QMONTH #1 vial 02/17/20 ARIPiprazole [Abilify] 15 mg PO DAILY 14 Days tab 02/17/20 Acetaminophen Tab [Tylenol] 650 mg PO Q4HR PRN tab 02/17/20 Cyanocobalamin [Vitamin B-12] 500 mcg PO DAILY 30 Days tab 02/17/20 Lidocaine 5% Patch [Lidoderm 5% 1 patch TOPICAL DAILY patch 02/17/20 Patch] Fowler Carbonate ER [Lithobid] 450 mg PO HS 30 Days tablet.er 02/17/20 Melatonin 6 mg PO HS 30 Days tablet 02/17/20 Nicotine Polacrilex [Nicorette] 2 mg BUCCAL Q4HR PRN 30 Days gum 02/17/20 cloNIDine HCL [Catapres] 0.1 mg PO BID 30 Days tab 02/17/20 diphenhydrAMINE [Benadryl] 50 mg PO HS 30 Days cap 02/17/20 Allergies Allergy/AdvReac Type Severity Reaction Status Date / Time No Known Allergies Allergy Verified 03/26/20 19:02 Review of Systems ROS Statement: Those systems with pertinent positive or pertinent negative responses have been documented in the HPI. ROS Other: All systems not noted in ROS Statement are negative. Past Medical History Past Medical History: Hypertension Additional Past Medical History / Comment(s): CHRONIC PAIN IN RIGHT LEG/ankle - BROKEN AND REPAIRED WITH METAL; "Dislocated disc" w/lower back & bilat. hip pain. History of Any Multi-Drug Resistant Organisms: None Reported Past Surgical History: Orthopedic Surgery Additional Past Surgical History / Comment(s): RIGHT ANKLE/RIGHT LEG Past Anesthesia/Blood Transfusion Reactions: No Reported Reaction Past Psychological History: Anxiety, Bipolar, Depression Past Alcohol Use History: Occasional Past Drug Use History: Marijuana - Past Family History Father Additional Family Medical History / Comment(s): Father is in his 40s with history of bipolar and multiple personality. He is in snf for an armed robbery with also history of alcohol and drug abuse. Brother(s) Additional Family Medical History / Comment(s): Patient has brothers and 2 are incarcerated area which she states they have anger management issues but she is not aware of any medical problems. Patient's 1 sister with no major medical problems that she is aware of. Mother Family Medical History: Diabetes Mellitus Additional Family Medical History / Comment(s): Mother is alive at age 55 with history of diabetes, hypertension, mental health issues. Patient does not have any children. General Exam General appearance: alert, in no apparent distress Head exam: Present: atraumatic, normocephalic, normal inspection Eye exam: Present: normal appearance, PERRL, EOMI. Absent: scleral icterus, conjunctival injection, periorbital swelling ENT exam: Present: normal exam, mucous membranes moist Neck exam: Present: normal inspection. Absent: tenderness, meningismus, lymphadenopathy Respiratory exam: Present: normal lung sounds bilaterally. Absent: respiratory distress, wheezes, rales, rhonchi, stridor Cardiovascular Exam: Present: normal rhythm, tachycardia, normal heart sounds. Absent: systolic murmur, diastolic murmur, rubs, gallop, clicks GI/Abdominal exam: Present: soft, normal bowel sounds. Absent: distended, tenderness, guarding, rebound, rigid Extremities exam: Present: normal inspection, full ROM, normal capillary refill. Absent: tenderness, pedal edema, joint swelling, calf tenderness Back exam: Present: normal inspection Neurological exam: Present: alert, oriented X3, CN II-XII intact Psychiatric exam: Present: agitated, anxious Skin exam: Present: warm, dry, intact, normal color. Absent: rash Course Vital Signs 03/26/20 19:02 Temperature 100.4 F H Pulse Rate 116 H Respiratory 20 Rate Blood Pressure 149/96 O2 Sat by Pulse 96 Oximetry - Reevaluation(s) Reevaluation #1: 03/26/20 19:33 Medical records reviewed Reevaluation #2: 03/26/20 19:33 Medical clear for psychiatric evaluation Reevaluation #3: 03/26/20 19:33 Patient seen and evaluated by psychiatry okay for discharge Medical Decision Making - Medical Decision Making 29 female DF for psychiatric evaluation regards to mainly contacts. Patient can be discharged home Disposition Clinical Impression: Manic behavior Disposition: HOME SELF-CARE Condition: Fair Instructions (If sedation given, give patient instructions): Bipolar Disorder (ED), Mood Disorders (ED) Is patient prescribed a controlled substance at d/c from ED?: No Referrals: Macrina Gallardo MD [Primary Care Provider] - 1-2 days
[2020-03-26 19:04] VITALS: BP 149/96; PULSE 116; RESP 20; TEMP 100.4
[2020-03-26] MEDS ORDERED: cloNIDine HCL 0.1 MG TAB PO ONE (19:30)
== END 2020-03-26 19:39 | disposition home or self-care (01) ==
LOC: EC 18:44
DX: F30.9 Manic episode, unspecified (principal); Z79.3 Long term (current) use of hormonal contraceptives
CPT/HCPCS: 82075; 99285

== ENCOUNTER 2020-03-27 03:56 | Inpatient (IN) | payer MEDICAID, OTHER ==
[2020-03-27 05:01] LABS: Appearance,Urine Clear (Clear); Bilirubin,Urine Negative (Negative); Blood,Urine Negative (Negative); Color,Urine Yellow; Glucose,Urine (UA) Negative (Negative); Ketones,Urine Negative (Negative); Leukocyte Esterase,Urine Negative (Negative); Nitrite,Urine Negative (Negative); Protein,Urine Negative (Negative); Specific Gravity,Urine 1.022 (1.001-1.035); Urobilinogen,Urine <2.0 mg/dL (<2.0)
[2020-03-27 05:10] LABS: Amphetamine Screen,Urine Not Detected (NotDetected); Barbiturate Screen,Urine Not Detected (NotDetected); Benzodiazepines Screen,Urine Not Detected (NotDetected); Cocaine Screen,Urine Not Detected (NotDetected); Methadone Screen, Urine Not Detected (NotDetected); Opiate Screen,Urine Not Detected (NotDetected); Oxycodone Screen, Urine Not Detected (NotDetected); Phencyclidine Screen,Urine Not Detected (NotDetected); Tricyclic Antidepressant,Urine Not Detected (NotDetected); Urn Cannabinoid Scrn Detected (NotDetected)
[2020-03-27] MEDS ORDERED: ZIPRASIDONE 20 MG VIAL IM PRN (06:31)
[2020-03-27] MEDS ORDERED: OLANZapine 5 MG TAB PO ONE (06:41)
[2020-03-27] MEDS: cloNIDine HCL 0.1 MG TAB PO SCH ×2 (07:37→20:52)
[2020-03-27] MEDS: ARIPiprazole 10 MG TAB PO SCH (07:37)
[2020-03-27] MEDS: CYANOCOBALAMIN 500 MCG TAB PO SCH (07:37)
[2020-03-27] MEDS: NICOTINE 14MG/24HR PATCH TRANSDERM SCH (07:37)
[2020-03-27 08:12] LABS: Basophils # (A) 0.1 k/uL (0-0.2); Basophils % (A) 1 %; Eosinophils # (A) 0.3 k/uL (0-0.7); Eosinophils % (A) 2 %; HCT 36.2 % (34.0-46.0); HGB 11.5 gm/dL (11.4-16.0); Lymphocytes # (A) 3.2 k/uL (1.0-4.8); Lymphocytes % (A) 27 %; MCH 28.2 pg (25.0-35.0); MCHC 31.6 g/dL (31.0-37.0); Mean Platelet Volume 7.8; Monocytes # (A) 0.5 k/uL (0-1.0); Monocytes % (A) 4 %; Neutrophils # (A) 7.7 k/uL (1.3-7.7); Neutrophils % (A) 64 %; Platelet Count 264 k/uL (150-450); RBC 4.07 m/uL (3.80-5.40); RDW 14.4 % (11.5-15.5)
[2020-03-27 08:26] LABS: ALT 18 U/L (4-34); AST 22 U/L (14-36); African American GFR (CKD) >90 (>60 ml/min/1.73 sqM); Albumin 4.2 g/dL (3.5-5.0); Alkaline Phosphatase 72 U/L (38-126); Anion Gap 6 mmol/L; Blood Urea Nitrogen 20 mg/dL (7-17); Calcium 9.2 mg/dL (8.4-10.2); Carbon Dioxide 26 mmol/L (22-30); Chloride 107 mmol/L (98-107); Cholesterol 185 mg/dL (<200); Glucose 95 mg/dL (74-99); HDL Cholesterol 52 mg/dL (40-60); Non-African American GFR(CKD) >90 (>60 ml/min/1.73 sqM); Potassium 4.5 mmol/L (3.5-5.1); Sodium 139 mmol/L (137-145); Total Bilirubin 0.4 mg/dL (0.2-1.3); Total Protein 6.8 g/dL (6.3-8.2)
[2020-03-27 09:13] LABS: LDL Cholesterol,Calculated 119 mg/dL (0-99); Triglycerides 69 mg/dL (<150)
--- NOTE | 2020-03-27 10:10 | P.HP ---
Psychiatric H&P - . H&P Date: 03/27/20 History & Physical: Allergies Allergy/AdvReac Type Severity Reaction Status Date / Time trazodone Allergy Rash/Hives Verified 03/27/20 07:22 Vital Signs Temp 97.9 F 03/27/20 06:58 Pulse 104 H 03/27/20 07:39 Resp 18 03/27/20 06:58 BP 132/93 03/27/20 07:39 Pulse Ox 100 03/27/20 06:58 Intake & Output 03/26/20 03/27/20 03/27/20 18:59 06:59 18:59 Weight 120.792 kg 119.9 kg Laboratory Last Values WBC 12.0 k/uL (3.8-10.6) H 03/27/20 07:49 RBC 4.07 m/uL (3.80-5.40) 03/27/20 07:49 Hgb 11.5 gm/dL (11.4-16.0) 03/27/20 07:49 Hct 36.2 % (34.0-46.0) 03/27/20 07:49 MCV 89.0 fL (80.0-100.0) 03/27/20 07:49 MCH 28.2 pg (25.0-35.0) 03/27/20 07:49 MCHC 31.6 g/dL (31.0-37.0) 03/27/20 07:49 RDW 14.4 % (11.5-15.5) 03/27/20 07:49 Plt Count 264 k/uL (150-450) 03/27/20 07:49 Neutrophils % 64 % 03/27/20 07:49 Lymphocytes % 27 % 03/27/20 07:49 Monocytes % 4 % 03/27/20 07:49 Eosinophils % 2 % 03/27/20 07:49 Basophils % 1 % 03/27/20 07:49 Neutrophils # 7.7 k/uL (1.3-7.7) 03/27/20 07:49 Lymphocytes # 3.2 k/uL (1.0-4.8) 03/27/20 07:49 Monocytes # 0.5 k/uL (0-1.0) 03/27/20 07:49 Eosinophils # 0.3 k/uL (0-0.7) 03/27/20 07:49 Basophils # 0.1 k/uL (0-0.2) 03/27/20 07:49 Sodium 139 mmol/L (137-145) 03/27/20 07:49 Potassium 4.5 mmol/L (3.5-5.1) 03/27/20 07:49 Chloride 107 mmol/L (98-107) 03/27/20 07:49 Carbon Dioxide 26 mmol/L (22-30) 03/27/20 07:49 Anion Gap 6 mmol/L 03/27/20 07:49 BUN 20 mg/dL (7-17) H 03/27/20 07:49 Creatinine 0.68 mg/dL (0.52-1.04) 03/27/20 07:49 Est GFR (CKD-EPI)AfAm >90 (>60 ml/min/1.73 sqM) 03/27/20 07:49 Est GFR (CKD-EPI)NonAf >90 (>60 ml/min/1.73 sqM) 03/27/20 07:49 Glucose 95 mg/dL (74-99) 03/27/20 07:49 Calcium 9.2 mg/dL (8.4-10.2) 03/27/20 07:49 Total Bilirubin 0.4 mg/dL (0.2-1.3) 03/27/20 07:49 AST 22 U/L (14-36) 03/27/20 07:49 ALT 18 U/L (4-34) 03/27/20 07:49 Alkaline Phosphatase 72 U/L (38-126) 03/27/20 07:49 Total Protein 6.8 g/dL (6.3-8.2) 03/27/20 07:49 Albumin 4.2 g/dL (3.5-5.0) 03/27/20 07:49 Triglycerides 69 mg/dL (<150) 03/27/20 07:49 Cholesterol 185 mg/dL (<200) 03/27/20 07:49 LDL Cholesterol, Calc 119 mg/dL (0-99) H 03/27/20 07:49 HDL Cholesterol 52 mg/dL (40-60) 03/27/20 07:49 TSH 1.470 mIU/L (0.465-4.680) 03/27/20 07:49 Urine Color Yellow 03/27/20 04:53 Urine Appearance Clear (Clear) 03/27/20 04:53 Urine pH 7.0 (5.0-8.0) 03/27/20 04:53 Ur Specific [place] 1.022 (1.001-1.035) 03/27/20 04:53 Urine Protein Negative (Negative) 03/27/20 04:53 Urine Glucose (UA) Negative (Negative) 03/27/20 04:53 Urine Ketones Negative (Negative) 03/27/20 04:53 Urine Blood Negative (Negative) 03/27/20 04:53 Urine Nitrite Negative (Negative) 03/27/20 04:53 Urine Bilirubin Negative (Negative) 03/27/20 04:53 Urine Urobilinogen <2.0 mg/dL (<2.0) 03/27/20 04:53 Ur Leukocyte Esterase Negative (Negative) 03/27/20 04:53 Urine HCG, Qual Not Detected (Not Detectd) 03/27/20 04:53 Urine Opiates Screen Not Detected (NotDetected) 03/27/20 04:53 Ur Oxycodone Screen Not Detected (NotDetected) 03/27/20 04:53 Urine Methadone Screen Not Detected (NotDetected) 03/27/20 04:53 Ur Propoxyphene Screen Not Detected (NotDetected) 03/27/20 04:53 Ur Barbiturates Screen Not Detected (NotDetected) 03/27/20 04:53 U Tricyclic Antidepress Not Detected (NotDetected) 03/27/20 04:53 Ur Phencyclidine Scrn Not Detected (NotDetected) 03/27/20 04:53 Ur Amphetamines Screen Not Detected (NotDetected) 03/27/20 04:53 U Methamphetamines Scrn Not Detected (NotDetected) 03/27/20 04:53 U Benzodiazepines Scrn Not Detected (NotDetected) 03/27/20 04:53 [place] 0.3 mmol/L 03/27/20 06:15 Urine Cocaine Screen Not Detected (NotDetected) 03/27/20 04:53 U Marijuana (THC) Screen Detected (NotDetected) H 03/27/20 04:53 03/27/20 10:01 IDENTIFYING DATA: Patient is a 29 years old female who currently lives with her mother and apartment has no kids 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 HPI: Patient presented to ER yesterday twice in one day and was brought in by her mother. According to APS report, patient was hyperverbal, tangential restless and pacing in the ER. Patient reported at that time that she was having poor sleep and had been disruptive and loud in the house turning on and off the lights and claims that she took a baclofen to go to sleep. Patient was recently discharged from the mental health unit in early February 2020 as she was transitioned onto Abilify Maintenna to ensure compliance. Patient was last given her dose of Abilify Maintenna on 03/25 by [facility]. Patient was seen laying down in her bed and was agreeable to speak with service writer advisor. She states that she "finally got to sleep" and claims that her mind was racing at home. She states that she was not able to "settle down". Patient claims that she missed taking her medications at times at home and also claimed that she was binge drinking on last Saturday and claims that she did not take her lithium at that time. She states that her mood is "up and down" and admitted to some anxiety. She states that she has poor sleep at home. Patient denies any suicidal or homicidal ideations intent or plan. At this time patient denies any auditory or visual hallucinations. Patient admitted to smoking marijuana and UDS was positive for THC. PAST PSYCHIATRIC HISTORY: Patient states that she has a history of bipolar disorder. Patient claims that she's been non compliant with her psychiatric medications. Patient was previously on lithium, Abilify Maintenna, Benadryl and melatonin. She last received her Abilify Maintenna dose 400 mg IM on 03/25/2020. Patient follows up with [facility]. She states that she is previously hospitalized 1 month ago. Patient denies any history of suicide attempts in the past. PMH: Hypertension and ankle problems. ALLERGIES: NKDA CHEMICAL DEPENDENCY HISTORY: The patient denies any current drug abuse but had a recent urine drug screen that was positive for THC. The patient admitted to history of for drug abuse in the past. FAMILY PSYCHIATRIC/SUBSTANCE USE HISTORY: Father has bipolar disorder and abuses drugs. SOCIAL HISTORY: Patient was born and raised in [place] and claims to have gone to college for a "landscaping" at [employer]. She claims that she has no legal problems and currently works in a fast food restaurant has no kids is single and lives with her mother and apartment.. MENTAL STATUS EXAM: General Appearance: Patient appears to be stated age is lethargic, directable, and attempts to cooperate. Patient appears to have poor hygiene and grooming. Behavior: Patient is seated without any agitated behavior. Lethargic and bizarre. Speech: Patient's speech is pressured. Mood/Affect: Patient reports their mood is "up and down", affect is congruent and labile Suicidality/Homicidality: Patient denies having any homicidal ideation intent or plan. Denies any suicidal ideations intent or plan Perceptions: Patient denies any visual hallucinations and denies any auditory hallucinations Though content/process: There is no evidence of any delusional thought content and thought process is linear and goal-directed. Rambles, illogical at times. Memory and concentration: AOX3, grossly intact for the purposes of this session. Can spell "WORLD" backwards Judgment and insight: poor/impulsive STRENGTHS/WEAKNESSES: strength is that patient is resilient. Weakness is that patient has poor judgment and is impulsive INTELLECT: average IMPRESSIONS: Bipolar disorder, severe, currently in a manic episode Cannabis use disorder Nicotine dependence PLAN: -Patient is admitted under voluntary status to MHU for stabilization of psychiatric symptoms and safety. Patient signed adult voluntary form and is placed in patient's chart. -Medications : Will start patient on Abilify by mouth 10 mg daily for mood sta bilization/psychosis as a supplement to patient already being on Abilify Maintenna 400 mg IM every monthly which was last given on 03/25/2020. Patient will also be started on lithium however increased to 450 mg twice a day. Patient's lithium level on admission was 0.3. Benadryl will be continued at 50 mg daily at bedtime along with melatonin 6 mg daily at bedtime. -Ativan and Geodon PRN for agitation/aggression -Patient was counselled on substance abuse and desired to cut back on use -Patient was informed of the risks, benefits and side effects of the medication and patient verbally consented to taking the medications. Patient signed med consent form and was placed in chart. -Internal Medicine consult to perform medical evaluation and physical. -NRT - nicotine patch -SW on board for discharge planning. Encourage patient to participate in groups to work on coping skills. Patient will be following up with [facility] upon discharge. 03/27/20 10:07
[2020-03-27] MEDS: LITHIUM CARBONATE ER 450 MG TABLET.ER PO SCH ×2 (10:23→20:51)
[2020-03-27] MEDS: ACETAMINOPHEN TAB 325 MG TAB PO PRN (10:25)
--- NOTE | 2020-03-27 15:00 | P.CONS ---
History of Present Illness - Reason for Consult Consult date: 03/27/20 Medical consultation with physical examination Requesting physician: Richard Lam - Chief Complaint maris - History of Present Illness This is a 29-year-old pleasant lady well known to my practice, known history of bipolar disorder with maris she was admitted to [facility] voluntarily secondary to psychiatric abnormality with maris, patient cannot settle down cannot sleep,, has been hyperactive lately, she should be on lithium, however she discontinued this last Saturday, few days prior to admission she decided to drink with her drinking buddies, she shared 30 packs of beer among 3 people. Patient mentioned that she drank less than her drinking buddies. She mentions that she is taking her Abilify, she requires lidocaine for her right foot pain, and melatonin for her insomnia. Patient denies any chest pain palpitations, patient does not do any self dictate mutilation, however she is more aggressive with her mood, no homicidal tendencies. No suicidal tendencies. Her last admission from our facility was February 10 till 02/17/2020 at the [facility]. She has been readmitted to the [facility] approximately 3 times since the past 2 months all because of her maris, uncontrolled behaviors and agitation and insomnia Review of Systems Constitutional: Reports as per HPI, Denies anorexia, Denies chills, Denies chronic headaches, Denies chronic pain, Denies daytime sleepiness, Denies fatigue, Denies fever, Denies lethargy, Denies malaise, Denies night sweats, Denies poor appetite, Denies sweats, Denies weakness, Denies weight gain, Denies weight loss Ears, nose, mouth and throat: Reports as per HPI, Denies ant. neck pain, Denies bleeding gums, Denies dental pain, Denies dysphagia, Denies epistaxis, Denies headache, Denies hoarseness, Denies mouth pain, Denies nasal congestion, Denies nasal discharge, Denies neck fullness/pressure, Denies neck lump, Denies nose pain, Denies odynophagia, Denies post-nasal drip, Denies sinus pain, Denies sinus pressure, Denies swelling in mouth, Denies swelling in throat, Denies sore throat, Denies vertigo, Denies voice changes Cardiovascular: Reports as per HPI Respiratory: Reports as per HPI, Denies congestion, Denies cough, Denies cough with sputum, Denies dyspnea, Denies excessive sputum, Denies hemoptysis, Denies home oxygen, Denies pain, Denies pain on inspiration, Denies pleurisy, Denies respiratory infections, Denies sleep apnea, Denies snoring, Denies wheezing Gastrointestinal: Reports as per HPI, Denies abdominal pain, Denies belching, Denies bloating, Denies BRBPR, Denies change in bowel habits, Denies coffee ground emesis, Denies constipation, Denies diarrhea, Denies dyspepsia, Denies early satiety, Denies excessive gas, Denies heartburn, Denies hematemesis, Denies hematochezia, Denies indigestion, Denies jaundice, Denies lactose into lerance, Denies loss of appetite, Denies melena, Denies nausea, Denies vomiting Genitourinary: Reports as per HPI, Denies abnormal vaginal bleeding, Denies decreased libido, Denies difficulty conceiving, Denies difficulty voiding, Denies dysmenorrhea, Denies dyspareunia, Denies dysuria, Denies flank pain, Denies genital sores, Denies hematuria, Denies hot flashes, Denies incomplete emptying, Denies kidney stones, Denies menorrhagia, Denies mixed incontinence, Denies nocturia, Denies pelvic pain, Denies post void dribbling, Denies , Denies prolapse symptoms, Denies stress incontinence, Denies urge incontinence, Denies urgency, Denies urinary frequency, Denies vaginal discharge, Denies vaginal dryness, Denies vaginal itching, Denies vaginal odor Menstruation: Reports as per HPI Musculoskeletal: Reports as per HPI Musculoskeletal: right: ankle pain, foot pain Integumentary: Reports as per HPI, Denies acne, Denies boils, Denies brittle nails, Denies change in hair/nails, Denies color changes, Denies darkening of skin, Denies depigmentation, Denies dryness, Denies foot/leg ulcers, Denies growths, Denies hirsutism, Denies lesions, Denies onychomycosis, Denies pruritus, Denies rash, Denies sores, Denies striae, Denies unusual bruising, Denies wounds Neurological: Reports as per HPI, Reports change in speech (Pressure) Psychiatric: Reports as per HPI, Reports change in sleep habits, Reports insomnia, Reports irritability, Reports mood swings Endocrine: Reports as per HPI, Denies cold intolerance, Denies deepening of the voice, Denies excessive sweating, Denies excessive thirst, Denies fatigue, Denies flushing, Denies heat intolerance, Denies high blood sugars, Denies incr ease in ring/shoe/hat size, Denies low blood sugars, Denies nocturia, Denies palpitations, Denies polydipsia, Denies polyphagia, Denies polyuria, Denies proptosis, Denies recent glucocorticoid use, Denies thyroid mass, Denies weight change Hematologic/Lymphatic: Reports as per HPI, Denies easy bleeding, Denies easy bruising, Denies lymphadenopathy, Denies lymphedema, Denies thrombophilia Allergic/Immunologic: Reports as per HPI, Denies allergic rhinitis, Denies anaphylaxis, Denies angioedema, Denies gluten intolerance, Denies persistent infections, Denies seasonal allergies, Denies urticaria, Denies wheezing Past Medical History Past Medical History: Hypertension Additional Past Medical History / Comment(s): CHRONIC PAIN IN RIGHT LEG/ankle - BROKEN AND REPAIRED WITH METAL; "Dislocated disc" w/lower back & bilat. hip pain. History of Any Multi-Drug Resistant Organisms: None Reported Past Surgical History: Orthopedic Surgery Additional Past Surgical History / Comment(s): RIGHT ANKLE/RIGHT LEG Past Anesthesia/Blood Transfusion Reactions: No Reported Reaction Past Psychological History: Anxiety, Bipolar, Depression Smoking Status: Current every day smoker Past Alcohol Use History: Occasional Past Drug Use History: Marijuana - Past Family History Father Additional Family Medical History / Comment(s): Father is in his 40s with history of bipolar and multiple personality. He is in snf for an armed robbery with also history of alcohol and drug abuse. Brother(s) Additional Family Medical History / Comment(s): Patient has brothers and 2 are incarcerated area which she states they have anger management issues but she is not aware of any medical problems. Patient's 1 sister with no major medical problems that she is aware of. Mother Family Medical History: Diabetes Mellitus Additional Family Medical History / Comment(s): Mother is alive at age 55 with history of diabetes, hypertension, mental health issues. Patient does not have any children. Medications and Allergies Home Medications Medication Instructions Recorded Confirmed Type Medroxyprogesterone Acetate 150 mg IM Q90D 01/20/20 02/19/20 History [Depo-Provera] ARIPiprazole IM [Abilify Maintena] 400 mg IM QMONTH #1 vial 02/17/20 03/27/20 Rx ARIPiprazole [Abilify] 15 mg PO DAILY 14 Days tab 02/17/20 03/27/20 Rx Acetaminophen Tab [Tylenol] 650 mg PO Q4HR PRN tab 02/17/20 03/27/20 Rx Cyanocobalamin [Vitamin B-12] 500 mcg PO DAILY 30 Days tab 02/17/20 03/27/20 Rx Lidocaine 5% Patch [Lidoderm 5% 1 patch TOPICAL DAILY patch 02/17/20 03/27/20 Rx Patch] [place] Carbonate ER [Lithobid] 450 mg PO HS 30 Days tablet.er 02/17/20 03/27/20 Rx Melatonin 6 mg PO HS 30 Days tablet 02/17/20 03/27/20 Rx Nicotine Polacrilex [Nicorette] 2 mg BUCCAL Q4HR PRN 30 Days gum 02/17/2003/27 Rx cloNIDine HCL [Catapres] 0.1 mg PO BID 30 Days tab 02/17/20 03/27/20 Rx diphenhydrAMINE [Benadryl] 50 mg PO HS 30 Days cap 02/17/20 03/27/20 Rx Allergies Allergy/AdvReac Type Severity Reaction Status Date / Time trazodone Allergy Rash/Hives Verified 03/27/20 07:22 Physical Exam Vitals: Vital Signs Temp Pulse Pulse Resp BP BP Pulse Ox 03/27/20 07:39 104 H 132/93 03/27/20 06:58 97.9 F 86 18 135/74 100 03/27/20 06:41 97.7 F 85 18 113/54 100 03/27/20 03:59 98.9 F 90 18 144/95 97 Intake and Output 03/26/20 03/27/20 03/27/20 22:59 06:59 14:59 Other: Weight 120.792 kg 120 kg Results CBC & Chem 7: 03/27/20 07:49 03/27/20 07:49 Labs: Abnormal Lab Results - Last 24 Hours (Table) 03/27/20 03/27/20 03/27/20 Range/Units 04:53 07:49 07:49 WBC 12.0 H (3.8-10.6) k/uL BUN 20 H (7-17) mg/dL LDL Cholesterol, Calc 119 H (0-99) mg/dL U Marijuana (THC) Screen Detected H (NotDetected) Laboratory Results WBC 12.0 k/uL (3.8-10.6) H 03/27/20 07:49 RBC 4.07 m/uL (3.80-5.40) 03/27/20 07:49 Hgb 11.5 gm/dL (11.4-16.0) 03/27/20 07:49 Hct 36.2 % (34.0-46.0) 03/27/20 07:49 MCV 89.0 fL (80.0-100.0) 03/27/20 07:49 MCH 28.2 pg (25.0-35.0) 03/27/20 07:49 MCHC 31.6 g/dL (31.0-37.0) 03/27/20 07:49 RDW 14.4 % (11.5-15.5) 03/27/20 07:49 Plt Count 264 k/uL (150-450) 03/27/20 07:49 Neutrophils % 64 % 03/27/20 07:49 Lymphocytes % 27 % 03/27/20 07:49 Monocytes % 4 % 03/27/20 07:49 Eosinophils % 2 % 03/27/20 07:49 Basophils % 1 % 03/27/20 07:49 Neutrophils # 7.7 k/uL (1.3-7.7) 03/27/20 07:49 Lymphocytes # 3.2 k/uL (1.0-4.8) 03/27/20 07:49 Monocytes # 0.5 k/uL (0-1.0) 03/27/20 07:49 Eosinophils # 0.3 k/uL (0-0.7) 03/27/20 07:49 Basophils # 0.1 k/uL (0-0.2) 03/27/20 07:49 Sodium 139 mmol/L (137-145) 03/27/20 07:49 Potassium 4.5 mmol/L (3.5-5.1) 03/27/20 07:49 Chloride 107 mmol/L (98-107) 03/27/20 07:49 Carbon Dioxide 26 mmol/L (22-30) 03/27/20 07:49 Anion Gap 6 mmol/L 03/27/20 07:49 BUN 20 mg/dL (7-17) H 03/27/20 07:49 Creatinine 0.68 mg/dL (0.52-1.04) 03/27/20 07:49 Est GFR (CKD-EPI)AfAm >90 (>60 ml/min/1.73 sqM) 03/27/20 07:49 Est GFR (CKD-EPI)NonAf >90 (>60 ml/min/1.73 sqM) 03/27/20 07:49 Glucose 95 mg/dL (74-99) 03/27/20 07:49 Calcium 9.2 mg/dL (8.4-10.2) 03/27/20 07:49 Total Bilirubin 0.4 mg/dL (0.2-1.3) 03/27/20 07:49 AST 22 U/L (14-36) 03/27/20 07:49 ALT 18 U/L (4-34) 03/27/20 07:49 Alkaline Phosphatase 72 U/L (38-126) 03/27/20 07:49 Total Protein 6.8 g/dL (6.3-8.2) 03/27/20 07:49 Albumin 4.2 g/dL (3.5-5.0) 03/27/20 07:49 Triglycerides 69 mg/dL (<150) 03/27/20 07:49 Cholesterol 185 mg/dL (<200) 03/27/20 07:49 LDL Cholesterol, Calc 119 mg/dL (0-99) H 03/27/20 07:49 HDL Cholesterol 52 mg/dL (40-60) 03/27/20 07:49 TSH 1.470 mIU/L (0.465-4.680) 03/27/20 07:49 Urine Color Yellow 03/27/20 04:53 Urine Appearance Clear (Clear) 03/27/20 04:53 Urine pH 7.0 (5.0-8.0) 03/27/20 04:53 Ur Specific [place] 1.022 (1.001-1.035) 03/27/20 04:53 Urine Protein Negative (Negative) 03/27/20 04:53 Urine Glucose (UA) Negative (Negative) 03/27/20 04:53 Urine Ketones Negative (Negative) 03/27/20 04:53 Urine Blood Negative (Negative) 03/27/20 04:53 Urine Nitrite Negative (Negative) 03/27/20 04:53 Urine Bilirubin Negative (Negative) 03/27/20 04:53 Urine Urobilinogen <2.0 mg/dL (<2.0) 03/27/20 04:53 Ur Leukocyte Esterase Negative (Negative) 03/27/20 04:53 Urine HCG, Qual Not Detected (Not Detectd) 03/27/20 04:53 Urine Opiates Screen Not Detected (NotDetected) 03/27/20 04:53 Ur Oxycodone Screen Not Detected (NotDetected) 03/27/20 04:53 Urine Methadone Screen Not Detected (NotDetected) 03/27/20 04:53 Ur Propoxyphene Screen Not Detected (NotDetected) 03/27/20 04:53 Ur Barbiturates Screen Not Detected (NotDetected) 03/27/20 04:53 U Tricyclic Antidepress Not Detected (NotDetected) 03/27/20 04:53 Ur Phencyclidine Scrn Not Detected (NotDetected) 03/27/20 04:53 Ur Amphetamines Screen Not Detected (NotDetected) 03/27/20 04:53 U Methamphetamines Scrn Not Detected (NotDetected) 03/27/20 04:53 U Benzodiazepines Scrn Not Detected (NotDetected) 03/27/20 04:53 [place] 0.3 mmol/L 03/27/20 06:15 Urine Cocaine Screen Not Detected (NotDetected) 03/27/20 04:53 U Marijuana (THC) Screen Detected (NotDetected) H 03/27/20 04:53 Assessment and Plan Plan: 1. Uncontrolled maris with history of bipolar disorder, patient has history of noncompliance to one of her medications secondary to her alcohol binge she is not easily and alcohol drinks on a routine basis, patient knows of admitted to the mental health unit for stabilization, patient's compliance to medication was advised again to keep lithium and her Abilify as recommended by psychiatry, 2. Hypertension on clonidine 0.1 mg twice a day, next 3. Chronic ankle pain, she requires lidocaine patches to be applied on the right foot 4. Chronic back pain, on when necessary Tylenol, patient's of on the opiates prior to admission, can also apply lidocaine patch this area next 5. Tobacco use and dependency, nicotine patches Thank you Dr. Lam in allowing us to precipitate the care of you patient. We'll going to follow her on a period basis. Do not hesitate to call should there be any problems in the future
[2020-03-27] MEDS: LORazepam 1 MG TAB PO PRN (15:55)
[2020-03-27] MEDS: diphenhydrAMINE 25 MG CAP PO SCH (20:51)
[2020-03-27] MEDS: MELATONIN 3 MG TABLET PO SCH (20:51)
[2020-03-27] MEDS ORDERED: LITHIUM CARBONATE ER 450 MG TABLET.ER PO SCH (21:00)
[2020-03-28] MEDS: LORazepam 1 MG TAB PO PRN ×2 (02:39→11:17)
[2020-03-28] MEDS: NICOTINE 14MG/24HR PATCH TRANSDERM SCH (07:43)
[2020-03-28] MEDS: CYANOCOBALAMIN 500 MCG TAB PO SCH (07:43)
[2020-03-28] MEDS: ARIPiprazole 10 MG TAB PO SCH (07:44)
[2020-03-28] MEDS: cloNIDine HCL 0.1 MG TAB PO SCH ×2 (07:44→20:18)
[2020-03-28] MEDS: LITHIUM CARBONATE ER 450 MG TABLET.ER PO SCH ×2 (07:44→20:18)
[2020-03-28 11:08] LABS: Hemoglobin A1C 5.5 % (4.0-6.0)
[2020-03-28] MEDS: LIDOCAINE 5% PATCH TOPICAL SCH (11:33)
--- NOTE | 2020-03-28 11:43 | P.PN ---
Subjective Progress Note Date: 03/28/20 Principal diagnosis: Diagnosis: Bipolar 1 manic # 2 cannabis use disorder #3 nicotine dependence Subjective: The patient freely admits to being bipolar manic episode she claims she was taking her medicines and they just were not adequate. She is on Abilify sustain a and had her last 400 mg IM monthly on 03/25/2020 years she is also on lithium which she claims she was taking regularly however lithium level was 0.3 she says she was able sleep last night although she has been having trouble sleeping at home. Objective the chart notes that at home the patient was hyperverbal tangential restless and disruptive loud in the house irrational turning lights on and off in the middle night. She is recently discharged from the hospital on February 2020 which is when they started the Abilify maintaina which evidently is not enough to keep her stable I think the lithium is a good idea but we will have to check its level on the increased dose started when she came in the hospital, she was started on 450 twice a day and will get a level on Saturday to see whether that is a high enough dose where she also has when necessary Abilify just to help her calm down until the lithium kicks in. She takes melatonin and Benadryl and says that seems to be working at night although Benadryl tends to quit working after a week of use. It may just be being in a structured environment with the extra Abilify that helped her sleep last night Mental status exam. I first met the patient with her talking loudly in the [place] saying "who is Dr. Cottrell is a tall dark and handsome why his his office door open." She then came marching into my office and has some pressured speech increase psychomotor activity minimal self-care no signs of psychosis denied any suicidality or homicidality no aggression she is oriented to person place time and circumstance. Vital signs: Temperature 97.9 heart rate 95 respiration 18 blood pressure 137/88 Labs should be noted that her white count is elevated she denies any symptoms of infection the people in many states often aren't aware of any problems. General chemistry showed BUN slightly high ride due to poor hydration LDL was also slightly elevated no acute problems her thyroid is fine. Urinalysis negative Urine toxicology is positive for marijuana Assessment and plan patient is clearly manic in the assessment is that the shot doesn't seem to hold her and that hopefully the increase in lithium well and then we have when necessary Abilify to see her through until it does. Objective - Vital Signs Vital signs: Vital Signs Temp 97.9 F 03/28/20 02:40 Pulse 95 03/28/20 02:40 Resp 18 03/28/20 02:40 BP 137/88 03/28/20 02:40 Pulse Ox 100 03/27/20 06:58 Intake & Output 03/27/20 03/28/20 03/28/20 18:59 06:59 18:59 Weight 120 kg - Labs CBC & Chem 7: 03/27/20 07:49 03/27/20 07:49
[2020-03-28] MEDS: diphenhydrAMINE 25 MG CAP PO SCH (20:17)
[2020-03-28] MEDS: MELATONIN 3 MG TABLET PO SCH (20:17)
[2020-03-29] MEDS: LORazepam 1 MG TAB PO PRN ×2 (01:44→12:50)
[2020-03-29] MEDS: MAG HYDROX/AL HYDROX/SIMETH 30 ML CUP PO PRN ×2 (01:45→12:50)
[2020-03-29] MEDS: ACETAMINOPHEN TAB 325 MG TAB PO PRN (06:15)
[2020-03-29] MEDS: cloNIDine HCL 0.1 MG TAB PO SCH ×2 (08:23→20:13)
[2020-03-29] MEDS: ARIPiprazole 10 MG TAB PO SCH (08:23)
[2020-03-29] MEDS: CYANOCOBALAMIN 500 MCG TAB PO SCH (08:23)
[2020-03-29] MEDS: lisinopriL 20 MG TAB PO SCH (08:23)
[2020-03-29] MEDS: LITHIUM CARBONATE ER 450 MG TABLET.ER PO SCH ×2 (08:23→20:12)
[2020-03-29] MEDS: NICOTINE 14MG/24HR PATCH TRANSDERM SCH (08:23)
[2020-03-29] MEDS: LIDOCAINE 5% PATCH TOPICAL SCH (09:04)
--- NOTE | 2020-03-29 11:57 | P.PN ---
Subjective Progress Note Date: 03/29/20 Principal diagnosis: Diagnosis: Bipolar 1 manic # 2 cannabis use disorder #3 nicotine dependence Subjective: The patient feels that her bipolar is beginning to slow down somewha t. Objective: The patient was able to sleep fairly well last night Vital signs temperature 97.8 heart rate 105 which suggests continued agitation respiration 18 blood pressure 161/98 Labs: Nothing new Groups: The patient been in 10 in groups she states to most of it although she wanders in and out. She is intrusive spontaneous pressured restless she is trying she went to the 3:30 group yesterday and stayed less than 15 minutes Mental status: Patient is alert positive sees issues around her and suggested solutions. She is quite intelligent which is typical bipolars but has little trouble staying on topic. She denies any suicidality or homicidality no evidence of psychosis Medications the patient is on lithium which she hopes will do the job she's been getting her Abilify maintaina shots and they were not enough to hold her we will get a lithium level tomorrow morning to check Assessment plan the patient still bipolar manic but seems to be somewhat calmer than yesterday the plan is to check her lithium level if it's adequate and she continues to calm down we may be of discharge her by the end of the week Objective - Vital Signs Vital signs: Vital Signs Temp 97.8 F 03/29/20 01:45 Pulse 105 H 03/29/20 01:45 Resp 18 03/29/20 01:45 BP 161/98 03/29/20 01:45 Pulse Ox 100 03/27/20 06:58 - Labs CBC & Chem 7: 03/27/20 07:49 03/27/20 07:49
[2020-03-29] MEDS: diphenhydrAMINE 25 MG CAP PO SCH (20:13)
[2020-03-29] MEDS: MELATONIN 3 MG TABLET PO SCH (20:13)
[2020-03-30] MEDS: LORazepam 1 MG TAB PO PRN ×2 (04:54→15:30)
[2020-03-30] MEDS: LIDOCAINE 5% PATCH TOPICAL SCH (09:10)
[2020-03-30] MEDS: lisinopriL 20 MG TAB PO SCH (09:11)
[2020-03-30] MEDS: CYANOCOBALAMIN 500 MCG TAB PO SCH (09:11)
[2020-03-30] MEDS: ARIPiprazole 10 MG TAB PO SCH (09:11)
[2020-03-30] MEDS: NICOTINE 14MG/24HR PATCH TRANSDERM SCH (09:11)
[2020-03-30] MEDS: cloNIDine HCL 0.1 MG TAB PO SCH ×2 (09:11→21:08)
--- NOTE | 2020-03-30 10:23 | P.PN ---
Subjective Progress Note Date: 03/30/20 Principal diagnosis: Diagnosis: Bipolar 1 manic # 2 cannabis use disorder #3 nicotine dependence Subjective: She says she slept well and feels like she is more in control today Objective: Patient remains pressured but clearly doing a better job of realizing it and controlling herself. Vital signs: Temperature 90.8 for heart rates 105 respirations 16 blood pressure 125/87 Labs: Nothing new Groups: Patient went to the 3:30 group and was noted to be circumstantial today about her mother her cat and that she isn't a card shark. She tends to wander in and out of group and is restless and intrusive. Mental status patient is alert picks up on things in her environment she is intelligent but the same time somewhat pressured she tried to get ahead of me and open my office door forgetting that it would require shane no evidence of psychosis and she denies suicidality or homicidality but self-care is minimal and still a lot of pressured speech. She did have her lithium level done this morning which we can check tomorrow Assessment patient is still manic although it is definitely coming down. The question is doing need to keep her until all the manic symptoms are clear or if she going to be able to function safely. At the very least we need to wait till tomorrow to check her lithium level Objective - Vital Signs Vital signs: Vital Signs Temp 98.4 F 03/30/20 05:01 Pulse 112 H 03/30/20 09:10 Resp 16 03/30/20 05:01 BP 131/80 03/30/20 09:10 Pulse Ox 100 03/27/20 06:58 - Labs CBC & Chem 7: 03/27/20 07:49 03/27/20 07:49
[2020-03-30] MEDS: LITHIUM CARBONATE ER 450 MG TABLET.ER PO SCH ×2 (10:37→21:08)
[2020-03-30] MEDS: MAGNESIUM HYDROXIDE 2,400 MG/10 ML CUP PO PRN (16:47)
[2020-03-30] MEDS: ACETAMINOPHEN TAB 325 MG TAB PO PRN (16:47)
[2020-03-30] MEDS: diphenhydrAMINE 25 MG CAP PO SCH (21:08)
[2020-03-30] MEDS: MELATONIN 3 MG TABLET PO SCH (21:08)
--- NOTE | 2020-03-31 07:57 | P.PN ---
Subjective Progress Note Date: 03/31/20 Principal diagnosis: Diagnosis: Bipolar 1 manic # 2 cannabis use disorder #3 nicotine dependence Subjective: The patient says she slept well she was somewhat this encouraged christine t her lithium level was only 0.4. "I guess I'll have to go to groups and be myself today too. " Objective: Vital signs temperature 98.5 heart rate 82 respirations 16 blood pressure 129/85 Labs: [place] level was 0.4 Groups: The patient did attend groups yesterday she would come in and out and was somewhat restless and interrupting. In social work group she stated the whole time was appropriate focus good insight. In 18 group she had trouble focusing on the task at hand focusing on wanting to be discharged. She seemed to know that she was "bugging people "but just couldn't quit Staff reported that the patient is taking good care of her hygiene she is a lot less pressured than when she came in she required some when necessary Ativan at about 1:00 yesterday denies any suicidal or homicidal ideas is oriented to person place time and circumstances redirectable and compliant with medications takes care of her basic needs. Mental status patient is slightly pressured but oriented good eye contact and answers fit the question but then she often gives a little extra irrelevant information no sadness no aggression no evidence of psychosis Assessment is that the patient is still mildly manic continuing to slow down. Plan: increase lithium to 600 twice a day and get a level tomorrow morning, if it is in the therapeutic range of 0.5 or above we will go ahead and discharge her I think she needs another day to continue slow down to be able to function outpatient and we need to make sure she tolerates the medicine Objective - Vital Signs Vital signs: Vital Signs Temp 98.5 F 03/31/20 06:21 Pulse 82 03/31/20 06:21 Resp 16 03/31/20 06:21 BP 129/85 03/31/20 06:21 Pulse Ox 100 03/27/20 06:58 - Labs CBC & Chem 7: 03/27/20 07:49 03/27/20 07:49
[2020-03-31] MEDS: NICOTINE 14MG/24HR PATCH TRANSDERM SCH (08:54)
[2020-03-31] MEDS: CYANOCOBALAMIN 500 MCG TAB PO SCH (08:55)
[2020-03-31] MEDS: cloNIDine HCL 0.1 MG TAB PO SCH ×2 (08:55→20:11)
[2020-03-31] MEDS: ARIPiprazole 10 MG TAB PO SCH (08:55)
[2020-03-31] MEDS: LITHIUM CARBONATE 300 MG CAP PO SCH ×2 (08:55→20:10)
[2020-03-31] MEDS: lisinopriL 20 MG TAB PO SCH (08:55)
[2020-03-31] MEDS: LORazepam 1 MG TAB PO PRN ×2 (09:45→17:09)
[2020-03-31] MEDS: LIDOCAINE 5% PATCH TOPICAL SCH (10:29)
[2020-03-31 12:03] LABS: Amorphous Sediment,Urine Few /hpf; Appearance,Urine Cloudy (Clear); Bacteria,Urine Rare /hpf; Bilirubin,Urine Negative (Negative); Blood,Urine Moderate (Negative); Color,Urine Yellow; Glucose,Urine (UA) Negative (Negative); Ketones,Urine Negative (Negative); Leukocyte Esterase,Urine Moderate (Negative); Mucus,Urine Rare /hpf; Nitrite,Urine Negative (Negative); PH, Urine 7.5 (5.0-8.0); Protein,Urine Negative (Negative); RBC,Urine <1 /hpf (0-5); Squamous Epithelial Cell,Urine 6 /hpf (0-4); Urobilinogen,Urine <2.0 mg/dL (<2.0); WBC,Urine 3 /hpf (0-5)
[2020-03-31] MEDS: ACETAMINOPHEN TAB 325 MG TAB PO PRN ×2 (14:04→19:38)
[2020-03-31] MEDS: MAGNESIUM HYDROXIDE 2,400 MG/10 ML CUP PO PRN (19:38)
[2020-03-31] MEDS: MELATONIN 3 MG TABLET PO SCH (20:10)
[2020-03-31] MEDS: diphenhydrAMINE 25 MG CAP PO SCH (20:56)
[2020-04-01] MEDS: MAG HYDROX/AL HYDROX/SIMETH 30 ML CUP PO PRN (00:33)
[2020-04-01 00:34] VITALS: RESP 18; TEMP 98
[2020-04-01] MEDS: CYANOCOBALAMIN 500 MCG TAB PO SCH (08:26)
[2020-04-01] MEDS: LITHIUM CARBONATE 300 MG CAP PO SCH (08:26)
[2020-04-01] MEDS: cloNIDine HCL 0.1 MG TAB PO SCH (08:26)
[2020-04-01] MEDS: NICOTINE 14MG/24HR PATCH TRANSDERM SCH (08:26)
[2020-04-01] MEDS: lisinopriL 20 MG TAB PO SCH (08:26)
[2020-04-01] MEDS: ARIPiprazole 10 MG TAB PO SCH (08:26)
--- NOTE | 2020-04-01 09:18 | P.DS ---
Providers Date of admission: 03/27/20 06:29 Expected date of discharge: 04/01/20 Attending physician: Dari Cottrell MD Consults: 03/27/20 06:31 Consult Physician Routine Consulting Provider: Macrina Gallardo Consult Reason/Comments: H&P for mental health admission Do you want consulting provider notified?: Yes Primary care physician: Macrina Gallardo Hospital Course: Hospital course patient was admitted on 03/27 being discharged on 04/01. She was severely manic when she came in unable to sleep unable to talk stop pacing and talking she had had her Abilify injection on the nin oral Abilify to supplemented and was started on lithium and has gradually calmed down progressively each day. She pushes herself to go to groups but has trouble staying and needs redirection to participate tends to talk loud somewhat intrusive good insight she is quite intelligent. Importantly she has been sleeping well at night takes care of her hygiene well in her ADLs cooperative compliant oriented to person place time and circumstance alert somewhat hyperverbal with her peers Mental status exam no signs of psychosis no tearfulness no irritability is some mild pressured speech but is able to stay on topic and has put together a reasonable discharge plan which she feels gives her life significance she says her mom needs her in order to not be depressed and to deal with life and so does her She does have some good friends. She even asked to continue the oral Abilify for a couple more weeks we'll wait for the lithium to kick in and is quite familiar with her illness and symptoms and open to getting help as she needs it but feels she can handle things at home. The team was worked with her in the past feels she has returned to her baseline. Prognosis is fair Continue current medication lithium and Abilify Assessment: The patient is doing much better she is still mildly manic but able to control herself no suicidality or homicidality danger to herself from poor judgment she has a good follow-up plan assessment is that she is improved enough that she should do fine outpatient and is tolerating her medications well. She has good follow-up arranged in a month's supply of the new medications that we put her on here Health Concerns: Patient is somewhat overweight tends to struggle with high blood pressure but her vital signs have been very stable here with blood pressures of 129/78. No acute medical concerns. She did complain of her urine smelling bad so we did a urinalysis yesterday was a bit cloudy with few bacteria a tiny increase in leukocyte esterase but her white cells were not increased. [place] that if she drinks fluids well she should be fine she does not seem to have an active urinary tract infection Pertinent Studies: She had a lithium level done yesterday which was on the subtherapeutic level so we increased the lithium and she is in the therapeutic range Procedures: None Plan - Discharge Summary New Discharge Prescriptions: New ARIPiprazole [Abilify] 10 mg PO DAILY 14 Days #14 tab Lidocaine 5% Patch [Lidoderm 5% Patch] 1 patch TOPICAL DAILY patch [place] Carbonate 600 mg PO BID 30 Days #60 cap rOPINIRole HCL [Requip] 0.25 mg PO TID tab lisinopriL [Zestril] 20 mg PO DAILY tab Continue Medroxyprogesterone Acetate [Depo-Provera] 150 mg IM Q90D cloNIDine HCL [Catapres] 0.1 mg PO BID 30 Days tab Lidocaine 5% Patch [Lidoderm 5% Patch] 1 patch TOPICAL DAILY patch Cyanocobalamin [Vitamin B-12] 500 mcg PO DAILY 30 Days tab ARIPiprazole IM [Abilify Maintena] 400 mg IM QMONTH #1 vial Melatonin 6 mg PO HS 30 Days tablet Discontinued ARIPiprazole [Abilify] 15 mg PO DAILY 14 Days tab [place] Carbonate ER [Lithobid] 450 mg PO HS 30 Days tablet.er Nicotine Polacrilex [Nicorette] 2 mg BUCCAL Q4HR PRN 30 Days gum PRN Reason: Nicotine Cravings Acetaminophen Tab [Tylenol] 650 mg PO Q4HR PRN tab PRN Reason: Pain/Discomfort diphenhydrAMINE [Benadryl] 50 mg PO HS 30 Days cap Discharge Medication List Medroxyprogesterone Acetate [Depo-Provera] 150 mg IM Q90D 01/20/20 [History] ARIPiprazole IM [Abilify Maintena] 400 mg IM QMONTH #1 vial 02/17/20 [Rx] Cyanocobalamin [Vitamin B-12] 500 mcg PO DAILY 30 Days tab 02/17/20 [Rx] Lidocaine 5% Patch [Lidoderm 5% Patch] 1 patch TOPICAL DAILY patch 02/17/20 [Rx] cloNIDine HCL [Catapres] 0.1 mg PO BID 30 Days tab 02/17/20 [Rx] ARIPiprazole [Abilify] 10 mg PO DAILY 14 Days #14 tab 04/01/20 [Rx] Lidocaine 5% Patch [Lidoderm 5% Patch] 1 patch TOPICAL DAILY patch 04/01/20 [Rx] [place] Carbonate 600 mg PO BID 30 Days #60 cap 04/01/20 [Rx] Melatonin 6 mg PO HS 30 Days tablet 04/01/20 [Rx] lisinopriL [Zestril] 20 mg PO DAILY tab 04/01/20 [Rx] rOPINIRole HCL [Requip] 0.25 mg PO TID tab 04/01/20 [Rx] Follow up Appointment(s)/Referral(s): [facility] [Outside] - 04/01/20 1:00 pm (04-01-20 @ 1:00 with Gisella Harrison by phone 04/05/[address] at [address] Nichole at the [facility] office ) Macrina Gallardo MD [Primary Care Provider] - 1 Week Patient Instructions/Handouts: How to Stop Smoking (DC), Mood Disorders (DC) Activity/Diet/Wound Care/Special Instructions: Activity and diet as tolerated. Avoid the use of street drugs and alcohol. Take all medications as prescribed. When you are in need of refills on your medications please contact your medical provider and/or outpatient psychiatrist to have this done. Please go to scheduled outpatient appointment for aftercare treatment. If symptoms return or become worse, call the crisis line at and/or go to the nearest emergency room for evaluation.
[2020-04-01] MEDS: LIDOCAINE 5% PATCH TOPICAL SCH ×2 (09:19→09:47)
[2020-04-01] MEDS: LORazepam 1 MG TAB PO PRN (10:55)
[2020-04-01 10:59] VITALS: BP 141/88; PULSE 107
[2020-04-17] MEDS ORDERED: medroxyPROGESTERone 150 MG/ML 1ML VIAL IM SCH (09:00)
== END 2020-04-01 11:23 | disposition home or self-care (01) | DRG 885 ==
LOC: EC 03:56 → 3MHU 06:29
PROVIDERS: ADMIT Psychiatry & Neurology Psychiatry; ATTEND Psychiatry & Neurology Psychiatry
DX: F31.13 Bipolar disorder, current episode manic without psychotic features, severe (principal); Z91.128 Patient's intentional underdosing of medication regimen for other reason; F12.10 Cannabis abuse, uncomplicated; T50.906A Underdosing of unspecified drugs, medicaments and biological substances, initial encounter; G47.00 Insomnia, unspecified; G89.29 Other chronic pain; M79.671 Pain in right foot; M25.551 Pain in right hip; M25.552 Pain in left hip; E66.3 Overweight; Z68.39 Body mass index [BMI] 39.0-39.9, adult; F17.200 Nicotine dependence, unspecified, uncomplicated; Z79.899 Other long term (current) drug therapy; Z71.51 Drug abuse counseling and surveillance of drug abuser; Z88.8 Allergy status to other drugs, medicaments and biological substances; I10 Essential (primary) hypertension; Z81.8 Family history of other mental and behavioral disorders; Z81.4 Family history of other substance abuse and dependence; Z82.49 Family history of ischemic heart disease and other diseases of the circulatory system; Z83.3 Family history of diabetes mellitus
CPT/HCPCS: 36415; 80053; 80061; 80178; 80306; 81001; 81003; 81025; 82075; 83036; 84443; 85025

== ENCOUNTER → 2021-05-12 | Outpatient (CLI) | payer OTHER ==
--- NOTE | 2021-05-12 10:59 | USB ---
Reason for exam: clinical finding. History: Family history of breast cancer in mother at age 40 and breast cancer in maternal grandmother at age 70. Took hormonal contraceptives for 14 years beginning at age 15. Physical Findings: Nurse did not find any significant physical abnormalities on exam. US Breast BILAT Right complete breast ultrasound includes all four quadrants, the retroareolar region and axilla. Finding demonstrates a 2.7 x 1.5 x 2.1cm oval, solid, hyperechoic lesion at 8 o'clock. Left complete breast ultrasound includes all four quadrants, the retroareolar region and axilla. Finding demonstrates no cystic or solid lesion seen. These results were verbally communicated with the patient and result sheet given to the patient on 05/12/21. ASSESSMENT: Suspicious, BI-RAD 4 RECOMMENDATION: Ultrasound core biopsy of the right breast. Called Dr. Gallardo's office with mammographic findings. Biopsy scheduled for 05/29/21 at 1:00. PRELIMINARY REPORT CALLED AND FAXED TO DR. GALLARDO ON 05/12/21.
== END | disposition home or self-care (01) ==
LOC: RADUSWWP 09:33
PROVIDERS: ATTEND Family Medicine
DX: N64.52 Nipple discharge (principal); N64.4 Mastodynia

== ENCOUNTER → 2021-06-08 | Outpatient (CLI) | payer OTHER ==
--- NOTE | 2021-06-08 12:14 | P.GSHP ---
History of Present Illness H&P Date: 06/08/21 Chief Complaint: Lump right breast Parish is a 30-year-old white female who presents for evaluation related to a nodule in her right breast. She had a lateral breast ultrasound on [phone] which revealed in the right breast a 2.7 x 1.5 cm solid lesion at 8:00. In the left breast [place] cystic or solid lesions were noted. Patient states the ultrasounds were done secondary tenderness of the breast. She also states that with manipulation she gets milky discharge from both nipples. this has been ongoing for 7 years. She takes the depo shot and was told this was a side effect of the shot. She does not have any spontaneous discharge. Caffeine: 2 cups/genna nicotine: vape daily chocolate: rare Family History: mother: breast cancer in her 40's maternal grandmother breast cancer in her 80's Hormonal History: menarche: 12 G0 periods irregular; due for a uterine ultrasound BCP: depo shot off this for a year hormones: none now Surgical history: right ankle Medical History: hypothroid anxiety/depression HTN sleeping pill Social History: nicotine: vapes 1 year/ prior 1 PPD/cigarettes since 18 alcohol: none drugs: none - Constitutional Constitutional: Denies chills, Denies fever - EENT Eyes: denies blurred vision, denies pain Ears: deny: decreased hearing, tinnitus Ears, nose, mouth and throat: Denies headache, Denies sore throat - Breasts Breasts: bilateral: as per HPI - Cardiovascular Comment: heart burn Cardiovascular: Denies chest pain, Denies shortness of breath - Respiratory Respiratory: Denies cough, Denies 7 - Gastrointestinal Gastrointestinal: Denies abdominal pain, Denies diarrhea, Denies nausea, Denies vomiting - Genitourinary (Female) Genitourinary: Denies dysuria, Denies hematuria - Menstruation Menstruation: Reports cycle variable - Musculoskeletal Musculoskeletal: Denies myalgias - Integumentary Integumentary: Denies pruritus, Denies rash - Neurological Neurological: Denies numbness, Denies weakness - Psychiatric Psychiatric: Reports anxiety, Reports depression - Endocrine Comment: hypothyroid - Hematologic/Lymphatic Comment: none - Allergic/Immunologic Allergic/Immunologic: Reports seasonal allergies Past Medical History Past Medical History: Hypertension Additional Past Medical History / Comment(s): CHRONIC PAIN IN RIGHT LEG/ankle - BROKEN AND REPAIRED WITH METAL; "Dislocated disc" w/lower back & bilat. hip pain. History of Any Multi-Drug Resistant Organisms: None Reported Past Surgical History: Orthopedic Surgery Additional Past Surgical History / Comment(s): RIGHT ANKLE/RIGHT LEG Past Anesthesia/Blood Transfusion Reactions: No Reported Reaction Past Psychological History: Anxiety, Bipolar, Depression Smoking Status: Current every day smoker Additional Past Alcohol Use History / Comment(s): Patient is a smoker of a half a pack per day. She denies any alcohol use marijuana use or street drug use. Note that urine drug screen is positive for methamphetamines. She does have history of using methamphetamines, crack cocaine, opioids and heavy alcohol use. Additional Drug Use History / Comment(s): Pt. states she drinks alcohol on ocassion and usually drinks 2 or 3 beers; She's been abusing methamphetamines for the last month, crack cocaine for the last 4 months, drank alcohol heavily from 18 yrs. old until she was 25 yrs. old, so only drinks ocassionally for the last two years. - Past Family History Father Additional Family Medical History / Comment(s): Father is in his 40s with history of bipolar and multiple personality. He is in detention for an armed robbery with also history of alcohol and drug abuse. Brother(s) Additional Family Medical History / Comment(s): Patient has brothers and 2 are incarcerated area which she states they have anger management issues but she is not aware of any medical problems. Patient's 1 sister with no major medical problems that she is aware of. Mother Family Medical History: Diabetes Mellitus Additional Family Medical History / Comment(s): Mother is alive at age 55 with history of diabetes, hypertension, mental health issues. Patient does not have any children. Medications and Allergies Home Medications Medication Instructions Recorded Confirmed Type ARIPiprazole IM [Abilify Maintena] 400 mg IM QMONTH #1 vial 02/17/20 03/27/20 Rx ARIPiprazole [Abilify] 10 mg PO DAILY 14 Days #14 tab 04/01/20 05/16/21 Rx lisinopriL [Zestril] 20 mg PO DAILY tab 04/01/20 05/16/21 Rx QUEtiapine [SEROquel] 50 mg PO HS 05/16/21 05/16/21 History Sertraline HCl [Zoloft] 100 mg PO DAILY 05/16/21 05/16/21 History Allergies Allergy/AdvReac Type Severity Reaction Status Date / Time trazodone Allergy Rash/Hives Verified 05/16/21 11:36 Surgical - Exam - General moderate distress - Eyes normal ocular movement - ENT normal nares - Neck trachea midline - Respiratory normal respiratory effort, clear to auscultation - Cardiovascular Rhythm: regular Heart Sounds: normal: S1, S2 - Abdomen Abdomen: soft - Integumentary normal turgor - Neurologic no disoriented, no combative - Musculoskeletal normal gait - Psychiatric oriented to time, oriented to person, oriented to place Breast Exam: BRA: sports bra tripple X inspection: bilateral grade 3 ptosis, bilateral pockmarks patient's scratches or breast palpation: right breast: Multiple positional exam fibrocystic changes no discrete dominant masses or nodules of concern Right axilla: No adenopathy of concern Left breast: Mild positional exam fibrocystic changes no dominant masses or nodules of concern Left axilla: No adenopathy of concern Results Ultrasound results reviewed Assessment and Plan Assessment: Impression: 1. Abnormal right breast ultrasound 2. Family history of cancer 3. Fibrocystic breast changes 4. Patient with some pockmarks on her breast from where she scratches Plan: 1. Ultrasound-guided core biopsy of the right breast 2. Follow-up after ultrasound-guided core biopsy CC: Dr. Gallardo
[2021-06-08 12:16] VITALS: BP 138/88; PULSE 116; RESP 24; TEMP 98
== END | disposition home or self-care (01) ==
LOC: WWCWWP 11:47
PROVIDERS: ATTEND Surgery
DX: Z53.9 Procedure and treatment not carried out, unspecified reason (principal)

== ENCOUNTER → 2021-06-21 | Day surgery (SDC) | payer OTHER ==
[2021-06-21 12:33] VITALS: BP 136/90; PULSE 102; RESP 16; TEMP 97.9
--- NOTE | 2021-06-21 15:52 | USB ---
EXAMINATION TYPE: US discontinued breast bx RT DATE OF EXAM: 06/21/2021 COMPARISON: Ultrasound 05/12/2021 HISTORY: 31-year-old female with abnormal breast study, referred for ultrasound-guided right breast b iopsy. TECHNIQUE: Initial targeted right breast ultrasound for biopsy planning. FINDINGS: Images show a compressible mildly heterogeneous echogenic circumscribed oval lesion measuring 2.0 cm. Would like compression, it measures 1.4 cm thick. With transducer pressure, it compresses down to 8 mm thick. A lipoma is favored. The area is not palpable. The patient has seen Dr. Hank Thornton who melany nakita the patient for mastitis with antibiotics which has resolved. This is an incidental finding. Deci janet is made to discontinue the biopsy. Six-month follow-up ultrasound will be recommended. Findings and impression are discussed with the patient. IMPRESSION: BI-RADS 3, probably benign (suspected 2.0 cm lipoma at the 8:00 NONpalpable site) incidentally seen d uring an episode of mastitis which has resolved. RECOMMENDATION: 1. Six-month follow-up right breast ultrasound. 2. Patient should continue monthly self breast exam. 3. This exam should not preclude additional follow-up of suspicious palpable abnormalities.
== END ==
LOC: RADUSWWP 11:45
PROVIDERS: ATTEND Family Medicine
DX: R92.8 Other abnormal and inconclusive findings on diagnostic imaging of breast (principal)

== ENCOUNTER 2022-01-08 12:28 | Emergency (ER) | payer OTHER ==
[2022-01-08 12:39] VITALS: TEMP 98.1
--- NOTE | 2022-01-08 13:14 | ED ---
General Adult HPI - General Chief complaint: Psychiatric Symptoms Stated complaint: Mental Health Time Seen by Provider: 01/08/22 12:41 Source: patient, RN notes reviewed Mode of arrival: ambulatory Limitations: no limitations - History of Present Illness Initial comments: Patient is a 31-year-old female presenting to the emergency department with concerns for anemia or medications. Patient has been off for several months now. Patient is feeling restless. Patient has flight of ideas. Patient states difficult to concentrate. Patient is not sleeping well. No suicidal or homicidal thoughts. Patient did have some auditory hallucinations month ago. Patient also questions if she saw a visual hallucination on the order at work recently. - Related Data Home Medications Medication Instructions Recorded Confirmed Sertraline HCl [Zoloft] 200 mg PO DAILY 05/16/21 01/08/22 Levothyroxine Sodium [Synthroid] 50 mcg PO DAILY 06/21/21 01/08/22 ARIPiprazole [Abilify] 5 mg PO DAILY 01/08/22 01/08/22 hydrOXYzine pamoate [Vistaril] 50 - 100 mg PO HS 01/08/22 01/08/22 Previous Rx's Medication Instructions Recorded lisinopriL [Zestril] 20 mg PO DAILY tab 04/01/20 Allergies Allergy/AdvReac Type Severity Reaction Status Date / Time trazodone Allergy Rash/Hives Verified 01/08/22 14:17 Review of Systems ROS Statement: Those systems with pertinent positive or pertinent negative responses have been documented in the HPI. ROS Other: All systems not noted in ROS Statement are negative. Constitutional: Denies: fever Eyes: Denies: eye pain ENT: Denies: ear pain Respiratory: Denies: cough Cardiovascular: Denies: chest pain Endocrine: Denies: fatigue Gastrointestinal: Denies: abdominal pain Genitourinary: Denies: dysuria Musculoskeletal: Denies: back pain Skin: Denies: rash Neurological: Denies: weakness Psychiatric: Reports: as per HPI Past Medical History Past Medical History: Hypertension Additional Past Medical History / Comment(s): CHRONIC PAIN IN RIGHT LEG/ankle - BROKEN AND REPAIRED WITH METAL; "Dislocated disc" w/lower back & bilat. hip pain. History of Any Multi-Drug Resistant Organisms: None Reported Past Surgical History: Orthopedic Surgery Additional Past Surgical History / Comment(s): RIGHT ANKLE/RIGHT LEG Past Anesthesia/Blood Transfusion Reactions: No Reported Reaction Past Psychological History: Anxiety, Bipolar, Depression Smoking Status: Current every day smoker, Vaper Past Alcohol Use History: Occasional Past Drug Use History: Marijuana, Methamphetamine - Past Family History Father Additional Family Medical History / Comment(s): Father is in his 40s with history of bipolar and multiple personality. He is in [facility] for an armed robbery with also history of alcohol and drug abuse. Brother(s) Additional Family Medical History / Comment(s): Patient has brothers and 2 are incarcerated area which she states they have anger management issues but she is not aware of any medical problems. Patient's 1 sister with no major medical problems that she is aware of. Mother Family Medical History: Diabetes Mellitus Additional Family Medical History / Comment(s): Mother is alive at age 55 with history of diabetes, hypertension, mental health issues. Patient does not have any children. General Exam Limitations: no limitations General appearance: alert, in no apparent distress, other (Patient is mildly restless) Head exam: Present: normocephalic Eye exam: Present: normal appearance Respiratory exam: Present: normal lung sounds bilaterally Cardiovascular Exam: Present: regular rate, normal rhythm GI/Abdominal exam: Present: soft. Absent: tenderness Extremities exam: Present: normal inspection Neurological exam: Present: alert Psychiatric exam: Present: normal affect, normal mood Skin exam: Present: other (Patient does have small lesions bilateral arms consistent with history of flea bites.) Course Vital Signs 01/08/22 12:37 Temperature 98.1 F Pulse Rate 108 H Respiratory 18 Rate Blood Pressure 134/68 O2 Sat by Pulse 98 Oximetry Medical Decision Making - Medical Decision Making Patient was seen by mental health services with safety plan made. Disposition Clinical Impression: Methamphetamine use disorder, moderate, Bipolar disorder Disposition: HOME SELF-CARE Condition: Stable Instructions (If sedation given, give patient instructions): Methamphetamine Abuse (ED), Bipolar Disorder (ED) Additional Instructions: Please follow-up with mental health services as directed. Please do follow-up to primary care physician in the next day or 2 for recheck. Return for thoughts of self-harm, os of harming others, worsening symptoms or other concerns. Is patient prescribed a controlled substance at d/c from ED?: No Referrals: Macrina Gallardo MD [Primary Care Provider] - 1-2 days Time of Disposition: 14:53
[2022-01-08 15:29] VITALS: BP 143/90; PULSE 107; RESP 20
== END 2022-01-08 15:10 | disposition home or self-care (01) ==
LOC: EC 12:28
DX: F31.9 Bipolar disorder, unspecified (principal); F15.94 Other stimulant use, unspecified with stimulant-induced mood disorder; I10 Essential (primary) hypertension; F41.9 Anxiety disorder, unspecified; F17.290 Nicotine dependence, other tobacco product, uncomplicated; F12.90 Cannabis use, unspecified, uncomplicated; Z79.899 Other long term (current) drug therapy
CPT/HCPCS: 82075; 99284

== ENCOUNTER 2022-02-24 01:40 | Emergency (ER) | payer OTHER ==
[2022-02-24 01:50] VITALS: BP 119/75; PULSE 109; RESP 18; TEMP 97.8
--- NOTE | 2022-02-24 02:16 | ED ---
Psych HPI - General Chief Complaint: Psychiatric Symptoms Stated Complaint: Mental Health Time Seen by Provider: 02/24/22 01:58 Source: EMS, RN notes reviewed, old records reviewed Mode of arrival: EMS Limitations: no limitations - History of Present Illness Initial Comments: This is a 31-year-old female to the emergency department for evaluation presents today for evaluation of psychiatric illness found wandering the streets not acting appropriately. Patient does have history of psychiatric disease, does admit to smoking crack today MD Complaint: altered mental status -: hour(s) Associated Psychiatric Symptoms: racing thoughts, auditory hallucinations History of same: Yes Quality: constant Improves With: none Worsens With: none Context: recent alcohol abuse, recent drug abuse, significant life stressor Associated Symptoms: denies other symptoms Treatments Prior to Arrival: placed on mental health hold - Related Data Home Medications Medication Instructions Recorded Confirmed Sertraline HCl [Zoloft] 200 mg PO DAILY 05/16/21 01/08/22 Levothyroxine Sodium [Synthroid] 50 mcg PO DAILY 06/21/21 01/08/22 ARIPiprazole [Abilify] 5 mg PO DAILY 01/08/22 01/08/22 hydrOXYzine pamoate [Vistaril] 50 - 100 mg PO HS 01/08/22 01/08/22 Previous Rx's Medication Instructions Recorded lisinopriL [Zestril] 20 mg PO DAILY tab 04/01/20 Allergies Allergy/AdvReac Type Severity Reaction Status Date / Time trazodone Allergy Rash/Hives Verified 01/08/22 14:17 Review of Systems ROS Statement: Those systems with pertinent positive or pertinent negative responses have been documented in the HPI. ROS Other: All systems not noted in ROS Statement are negative. Past Medical History Past Medical History: Hypertension Additional Past Medical History / Comment(s): CHRONIC PAIN IN RIGHT LEG/ankle - BROKEN AND REPAIRED WITH METAL; "Dislocated disc" w/lower back & bilat. hip pain. History of Any Multi-Drug Resistant Organisms: None Reported Past Surgical History: Orthopedic Surgery Additional Past Surgical History / Comment(s): RIGHT ANKLE/RIGHT LEG Past Anesthesia/Blood Transfusion Reactions: No Reported Reaction Past Psychological History: Anxiety, Bipolar, Depression Smoking Status: Current every day smoker, Vaper Past Alcohol Use History: Occasional Past Drug Use History: Marijuana, Methamphetamine - Past Family History Father Additional Family Medical History / Comment(s): Father is in his 40s with history of bipolar and multiple personality. He is in [place] an armed robbery with also history of alcohol and drug abuse. Brother(s) Additional Family Medical History / Comment(s): Patient has brothers and 2 are incarcerated area which she states they have anger management issues but she is not aware of any medical problems. Patient's 1 sister with no major medical problems that she is aware of. Mother Family Medical History: Diabetes Mellitus Additional Family Medical History / Comment(s): Mother is alive at age 55 with history of diabetes, hypertension, mental health issues. Patient does not have any children. General Exam Limitations: altered mental status General appearance: alert, in no apparent distress, anxious Head exam: Present: atraumatic, normocephalic, normal inspection Eye exam: Present: normal appearance, PERRL, EOMI. Absent: scleral icterus, conjunctival injection, periorbital swelling ENT exam: Present: normal exam, mucous membranes moist Neck exam: Present: normal inspection. Absent: tenderness, meningismus, lymphadenopathy Respiratory exam: Present: normal lung sounds bilaterally. Absent: respiratory distress, wheezes, rales, rhonchi, stridor Cardiovascular Exam: Present: normal rhythm, tachycardia, normal heart sounds. Absent: systolic murmur, diastolic murmur, rubs, gallop, clicks GI/Abdominal exam: Present: soft, normal bowel sounds. Absent: distended, tenderness, guarding, rebound, rigid Extremities exam: Present: normal inspection, full ROM, normal capillary refill. Absent: tenderness, pedal edema, joint swelling, calf tenderness Back exam: Present: normal inspection Neurological exam: Present: alert, oriented X3, CN II-XII intact Psychiatric exam: Present: normal affect, normal mood Skin exam: Present: warm, dry, intact, normal color. Absent: rash Course Vital Signs 02/24/22 01:44 Temperature 97.8 F Pulse Rate 109 H Respiratory 18 Rate Blood Pressure 119/75 O2 Sat by Pulse 96 Oximetry - Reevaluation(s) Reevaluation #1: 02/24/22 02:26 Medical record is reviewed Reevaluation #2: 02/24/22 05:12 Patient woke up here in the emergency department, she is pretty choosing to go home. Patient is not petition she is not homicidal or suicidal Medical Decision Making - Medical Decision Making 31 Female presents DF for evaluation of drug intoxication. Patient wakes up awake and alert not homicidal or suicidal and can be discharged home Disposition Clinical Impression: Acute psychosis Disposition: HOME SELF-CARE Condition: Fair Instructions (If sedation given, give patient instructions): Brief Psychotic Disorder (ED) Is patient prescribed a controlled substance at d/c from ED?: No Referrals: Macrina Gallardo MD [Primary Care Provider] - 1-2 days Time of Disposition: 05:10
== END 2022-02-24 05:24 | disposition home or self-care (01) ==
LOC: EC 01:40
DX: F23 Brief psychotic disorder (principal); I10 Essential (primary) hypertension; F17.200 Nicotine dependence, unspecified, uncomplicated; F17.209 Nicotine dependence, unspecified, with unspecified nicotine-induced disorders; Z88.8 Allergy status to other drugs, medicaments and biological substances
CPT/HCPCS: 99284

== ENCOUNTER 2022-03-05 14:00 | Emergency (ER) | payer OTHER ==
--- NOTE | 2022-03-05 14:37 | ED ---
General Adult HPI - General Source: patient, police, EMS, RN notes reviewed, old records reviewed Mode of arrival: EMS Limitations: no limitations <Denis Duran - Last Filed: 03/05/22 14:36> <Crescencio Boothe - Last Filed: 03/05/22 22:31> - General Chief complaint: Psychiatric Symptoms Stated complaint: Mental Health Time Seen by Provider: 03/05/22 14:02 - History of Present Illness Initial comments: 31-year-old female with suicidal thoughts, suicidal plan to overdose on heroin. No suicide attempt. Patient brought in by police and has been petitioned for psychiatric evaluation. Patient states she lost her job and this did trigger her suicidal thoughts. She admits to anxiety and depression. No physical complaints. (Denis Duran) - Related Data Home Medications Medication Instructions Recorded Confirmed Sertraline HCl [Zoloft] 200 mg PO DAILY 05/16/21 03/05/22 hydrOXYzine pamoate [Vistaril] 50 - 100 mg PO HS 01/08/22 03/05/22 ARIPiprazole IM SYRINGE [Abilify 400 mg IM QMONTHLY 03/05/22 03/05/22 Maintena Syringe] Albuterol Sulfate [Ventolin HFA] 2 puff INHALATION RT-Q6H PRN 03/05/22 03/05/22 Cetirizine HCl 10 mg PO DAILY 03/05/22 03/05/22 Previous Rx's Medication Instructions Recorded lisinopriL [Zestril] 20 mg PO DAILY tab 04/01/20 Allergies Allergy/AdvReac Type Severity Reaction Status Date / Time trazodone Allergy Rash/Hives Verified 01/08/22 14:17 Review of Systems ROS Other: All systems not noted in ROS Statement are negative. <Denis Duran - Last Filed: 03/05/22 14:36> ROS Other: All systems not noted in ROS Statement are negative. <Crescencio Boothe - Last Filed: 03/05/22 22:31> ROS Statement: Those systems with pertinent positive or pertinent negative responses have been documented in the HPI. Past Medical History Past Medical History: Hypertension Additional Past Medical History / Comment(s): CHRONIC PAIN IN RIGHT LEG/ankle - BROKEN AND REPAIRED WITH METAL; "Dislocated disc" w/lower back & bilat. hip pain. History of Any Multi-Drug Resistant Organisms: None Reported Past Surgical History: Orthopedic Surgery Additional Past Surgical History / Comment(s): RIGHT ANKLE/RIGHT LEG Past Anesthesia/Blood Transfusion Reactions: No Reported Reaction Past Psychological History: Anxiety, Bipolar, Depression Smoking Status: Current every day smoker, Vaper Past Alcohol Use History: Occasional Past Drug Use History: Marijuana, Methamphetamine - Past Family History Father Additional Family Medical History / Comment(s): Father is in his 40s with history of bipolar and multiple personality. He is in [facility] for an armed robbery with also history of alcohol and drug abuse. Brother(s) Additional Family Medical History / Comment(s): Patient has brothers and 2 are incarcerated area which she states they have anger management issues but she is not aware of any medical problems. Patient's 1 sister with no major medical problems that she is aware of. Mother Family Medical History: Diabetes Mellitus Additional Family Medical History / Comment(s): Mother is alive at age 55 with history of diabetes, hypertension, mental health issues. Patient does not have any children. <Denis Duran N - Last Filed: 03/05/22 14:36> General Exam General appearance: alert, in no apparent distress Head exam: Present: atraumatic, normocephalic Eye exam: Present: normal appearance, PERRL ENT exam: Present: normal exam Neck exam: Present: normal inspection Respiratory exam: Present: normal lung sounds bilaterally. Absent: respiratory distress, wheezes Cardiovascular Exam: Present: regular rate, normal rhythm GI/Abdominal exam: Present: soft. Absent: distended, tenderness Extremities exam: Present: normal inspection, normal capillary refill. Absent: pedal edema, joint swelling, calf tenderness Neurological exam: Present: alert, oriented X3, CN II-XII intact. Absent: motor sensory deficit Psychiatric exam: Present: normal affect, normal mood Skin exam: Present: warm, dry, intact. Absent: cyanosis, diaphoretic <Denis Duran N - Last Filed: 03/05/22 14:36> Course <Denis Duran N - Last Filed: 03/05/22 14:36> Vital Signs 03/05/22 14:01 Temperature 98.4 F Pulse Rate 98 Respiratory 26 H Rate Blood Pressure 136/92 O2 Sat by Pulse 97 Oximetry - Reevaluation(s) Reevaluation #1: 03/05/22 14:37 Clear for EPS (Denis Duran) Medical Decision Making - Lab Data Lab Results 03/05/22 Range/Units 14:18 Urine Opiates Screen Not Detected (NotDetected) Ur Oxycodone Screen Not Detected (NotDetected) Urine Methadone Screen Not Detected (NotDetected) Ur Propoxyphene Screen Not Detected (NotDetected) Ur Barbiturates Screen Not Detected (NotDetected) U Tricyclic Antidepress Not Detected (NotDetected) Ur Phencyclidine Scrn Not Detected (NotDetected) Ur Amphetamines Screen Detected H (NotDetected) U Methamphetamines Scrn Detected H (NotDetected) U Benzodiazepines Scrn Not Detected (NotDetected) Urine Cocaine Screen Detected H (NotDetected) U Marijuana (THC) Screen Not Detected (NotDetected) Disposition <Denis Duran - Last Filed: 03/05/22 14:36> Is patient prescribed a controlled substance at d/c from ED?: No <Crescencio Boothe - Last Filed: 03/05/22 22:31> Clinical Impression: Acute psychosis, Bipolar disorder, Methamphetamine use disorder, moderate, Methamphetamine abuse Disposition: HOME SELF-CARE Condition: Fair Instructions (If sedation given, give patient instructions): Brief Psychotic Disorder (ED) Referrals: Macrina Gallardo MD [Primary Care Provider] - 1-2 days
[2022-03-05 15:54] LABS: Amphetamine Screen,Urine Detected (NotDetected); Barbiturate Screen,Urine Not Detected (NotDetected); Benzodiazepines Screen,Urine Not Detected (NotDetected); Cocaine Screen,Urine Detected (NotDetected); Methadone Screen, Urine Not Detected (NotDetected); Opiate Screen,Urine Not Detected (NotDetected); Oxycodone Screen, Urine Not Detected (NotDetected); Phencyclidine Screen,Urine Not Detected (NotDetected); Tricyclic Antidepressant,Urine Not Detected (NotDetected); Urn Cannabinoid Scrn Not Detected (NotDetected)
[2022-03-05 23:03] VITALS: BP 132/76; PULSE 78; RESP 16; TEMP 97.9
== END 2022-03-05 23:02 | disposition home or self-care (01) ==
LOC: EC 14:00
DX: F23 Brief psychotic disorder (principal); F31.9 Bipolar disorder, unspecified; F15.10 Other stimulant abuse, uncomplicated; R45.851 Suicidal ideations; I10 Essential (primary) hypertension; F17.200 Nicotine dependence, unspecified, uncomplicated; F17.290 Nicotine dependence, other tobacco product, uncomplicated; Z88.8 Allergy status to other drugs, medicaments and biological substances
CPT/HCPCS: 80306; 82075; 99285

== ENCOUNTER 2023-06-16 18:34 | Emergency (ER) | payer OTHER ==
[2023-06-16 19:10] VITALS: RESP 18
--- NOTE | 2023-06-16 19:44 | ED ---
General Adult HPI - General Chief complaint: Psychiatric Symptoms Stated complaint: Mental Health Time Seen by Provider: 06/16/23 19:09 Source: patient, RN notes reviewed Mode of arrival: ambulatory - History of Present Illness Initial comments: 33-year-old female presents to the emergency department chief complaint of increased depression and "wanting to jump out of a car." She states that she is on Abilify her last shot was May 02. She states that she was supposed to schedule an appointment for this month's shot but was unable to. She reports that she has not been taking her Zoloft or Buspar for around 2 months. She states that she has been hospitalized in the past for mental health last time being in March at [facility]. She does admit to urinary frequency and odor 2-3 days. She denies fevers, chills, cough, congestion, abdominal pain. - Related Data Previous Rx's Medication Instructions Recorded Cephalexin [Keflex] 500 mg PO Q12HR 7 Days #14 cap 06/16/23 lisinopriL 40 mg PO DAILY #30 tab 06/16/23 Allergies Allergy/AdvReac Type Severity Reaction Status Date / Time trazodone Allergy Rash/Hives Verified 06/16/23 20:06 Review of Systems ROS Statement: Those systems with pertinent positive or pertinent negative responses have been documented in the HPI. ROS Other: All systems not noted in ROS Statement are negative. Past Medical History Past Medical History: Hypertension Additional Past Medical History / Comment(s): CHRONIC PAIN IN RIGHT LEG/ankle - BROKEN AND REPAIRED WITH METAL; "Dislocated disc" w/lower back & bilat. hip pain. History of Any Multi-Drug Resistant Organisms: None Reported Past Surgical History: Orthopedic Surgery Additional Past Surgical History / Comment(s): RIGHT ANKLE/RIGHT LEG Past Anesthesia/Blood Transfusion Reactions: No Reported Reaction Past Psychological History: Anxiety, Bipolar, Depression Smoking Status: Current every day smoker, Vaper Past Alcohol Use History: Occasional Past Drug Use History: None Reported - Past Family History Father Additional Family Medical History / Comment(s): Father is in his 40s with history of bipolar and multiple personality. He is in long term for an armed robbery with also history of alcohol and drug abuse. Brother(s) Additional Family Medical History / Comment(s): Patient has brothers and 2 are incarcerated area which she states they have anger management issues but she is not aware of any medical problems. Patient's 1 sister with no major medical problems that she is aware of. Mother Family Medical History: Diabetes Mellitus Additional Family Medical History / Comment(s): Mother is alive at age 55 with history of diabetes, hypertension, mental health issues. Patient does not have any children. General Exam Limitations: no limitations General appearance: alert, in no apparent distress Course Vital Signs 06/16/23 06/16/23 06/16/23 19:00 19:48 21:31 Temperature 99.8 F H 99.4 F Pulse Rate 123 H 114 H 111 H Respiratory 18 18 18 Rate Blood Pressure 127/95 142/93 142/106 O2 Sat by Pulse 96 93 L 95 Oximetry 06/16/23 06/16/23 21:45 22:09 Temperature 98.2 F 98.2 F Pulse Rate 104 H Respiratory 18 Rate Blood Pressure 138/94 O2 Sat by Pulse 95 Oximetry Medical Decision Making - Medical Decision Making Was pt. sent in by a medical professional or institution (, PA, RUBBER GASKET INSPECTOR TRIMMER, urgent care, hospital, or senior living...) When possible be specific @ -No Did you speak to anyone other than the patient for history (EMS, parent, family, police, friend...)? What history was obtained from this source @ -No Did you review nursing and triage notes (agree or disagree)? Why? @ -I reviewed and agree with nursing and triage notes Were old charts reviewed (outside hosp., previous admission, EMS record, old EKG, old radiological studies, urgent care reports/EKG's, senior living records)? Report findings @ -No old charts were reviewed Differential Diagnosis (chest pain, altered mental status, abdominal pain women, abdominal pain men, vaginal bleeding, weakness, fever, dyspnea, syncope, headache, dizziness, GI bleed, back pain, seizure, CVA, palpatations, mental health, musculoskeletal)? @ -Differential Mental Health Depression, anxiety, bipolar, psychosis, schizophrenia, borderline personality, situational depression, adjustment disorder, behavioral disorder, brain tumor, malingering, substance abuse, encephalopathy, medication reaction, dementia, hypothyroidism, degenerative neurologic disorder, lupus.... This is not meant to be all-inclusive list EKG interpreted by me (3pts min.). @ -none X-rays interpreted by me (1pt min.). @ -None done CT interpreted by me (1pt min.). @ -None done U/S interpreted by me (1pt. min.). @ -None done What testing was considered but not performed or refused? (CT, X-rays, U/S, labs)? Why? @ -Laboratory studies for ordered along with fluids but the patient refused and requested to be discharged. What meds were considered but not given or refused? Why? @ -None Did you discuss the management of the patient with other professionals (professionals i.e. , PA, RU[employer]ER GASKET INSPECTOR TRIMMER, lab, RT, psych nurse, child protective services social worker, oceanologist, teacher, professional security officer, case advocate)? Give summary @ -No Was smoking cessation discussed for >3mins.? @ -No Was critical care preformed (if so, how long)? @ -No Were there social determinants of health that impacted care today? How? (Homelessness, low income, unemployed, alcoholism, drug addiction, transportation, low edu. Level, literacy, decrease access to med. care, intermediate, rehab)? @ -No Was there de-escalation of care discussed even if they declined (Discuss DNR or withdrawal of care, Hospice)? DNR status @ -No What co-morbidities impacted this encounter? (DM, HTN, Smoking, COPD, CAD, Cancer, CVA, ARF, Chemo, Hep., AIDS, mental health diagnosis, sleep apnea, morbid obesity)? @ -None Was patient admitted / discharged? Hospital course, mention meds given and route, prescriptions, significant lab abnormalities, going to OR and other pertinent info. @ -discharged. Patient presented to emergency department for chief complaint of mental health concerns. She states that she has not been able to get her abilify this month. UA performed shows large leukocyte esterase, 6 RBCs, and 10 WBCs patient reports that she does have some urinary frequency and odor she will be treated for urinary tract infection at this time. Urine drug screen negative. Covid negative. Patient evaluated by emergency psychiatric services and discharged with care plan was recommended which I feel is appropriate. She is going to call [facility] tomorrow. She is not suicidal at this time. Laboratory studies and fluids were considered for tachycardia but patient refused and wanted to be discharged home. Patient has a history of hypertension but is not currently taking her medications. She is supposed to be on lisinopril 40 mg daily. A dose was given in the ED and a prescription sent to her pharmacy. She was advised to follow up closely with her PCP. Discussed risks with patient and she is understanding and would still like to be discharged. Patient stable at time of discharge. Case discussed with Dr. Boothe Undiagnosed new problem with uncertain prognosis? @ -No Drug Therapy requiring intensive monitoring for toxicity (Heparin, Nitro, Insulin, Cardizem)? @ -No Were any procedures done? @ -No Diagnosis/symptom? @ -history of anxiety and depression, UTI Acute, or Chronic, or Acute on Chronic? @ -acute Uncomplicated (without systemic symptoms) or Complicated (systemic symptoms)? @ -uncomplicated Side effects of treatment? @ -No Exacerbation, Progression, or Severe Exacerbation? @ -No Poses a threat to life or bodily function? How? (Chest pain, [place], [place], pneumonia, PE, COPD, DKA, ARF, appy, cholecystitis, CVA, Diverticulitis, Homicidal, Suicidal, threat to staff... and all critical care pts) @ -No - Lab Data Lab Results 06/16/23 06/16/23 06/16/23 Range/Units 21:42 21:42 21:42 Urine Color Yellow Urine Appearance Cloudy H (Clear) Urine pH 5.5 (5.0-8.0) Ur Specific V[place]al 1.032 (1.001-1.035) Urine Protein 1+ H (Negative) Urine Glucose (UA) Negative (Negative) Urine Ketones Negative (Negative) Urine Blood Negative (Negative) Urine Nitrite Negative (Negative) Urine Bilirubin Negative (Negative) Urine Urobilinogen <2.0 (<2.0) mg/dL Ur Leukocyte Esterase Large H (Negative) Urine RBC 6 H (0-5) /hpf Urine WBC 10 H (0-5) /hpf Ur Squamous Epith Cells 9 H (0-4) /hpf Urine Bacteria Occasional H (None) /hpf Hyaline Casts 15 H (0-2) /lpf Urine Mucus Many H (None) /hpf Urine HCG, Qual Not Detected (Not Detectd) Urine Opiates Screen Not Detected (NotDetected) Ur Oxycodone Screen Not Detected (NotDetected) Urine Methadone Screen Not Detected (NotDetected) Ur Propoxyphene Screen Not Detected (NotDetected) Ur Barbiturates Screen Not Detected (NotDetected) U Tricyclic Antidepress Not Detected (NotDetected) Ur Phencyclidine Scrn Not Detected (NotDetected) Ur Amphetamines Screen Not Detected (NotDetected) U Methamphetamines Scrn Not Detected (NotDetected) U Benzodiazepines Scrn Not Detected (NotDetected) Urine Cocaine Screen Not Detected (NotDetected) U Marijuana (THC) Screen Not Detected (NotDetected) Coronavirus (PCR) Not Detected (Not Detectd) Disposition Clinical Impression: Anxiety, Depression, UTI (urinary tract infection) Disposition: HOME SELF-CARE Condition: Stable Additional Instructions: Follow up with [facility] tomorrow morning as discussed in care plan. Return to the emergency department for new or worsening symptoms. Prescriptions: Cephalexin [Keflex] 500 mg PO Q12HR 7 Days #14 cap lisinopriL 40 mg PO DAILY #30 tab Is patient prescribed a controlled substance at d/c from ED?: No Referrals: None,Stated [Primary Care Provider] - 1-2 days
[2023-06-16] MEDS ORDERED: lisinopriL 20 MG TAB PO STA (21:40)
[2023-06-16] MEDS ORDERED: SODIUM CHLORIDE 0.9% 1,000 ML IV STA (21:49)
[2023-06-16 21:53] LABS: Appearance,Urine Cloudy (Clear); Bacteria,Urine Occasional /hpf; Bilirubin,Urine Negative (Negative); Blood,Urine Negative (Negative); Color,Urine Yellow; Glucose,Urine (UA) Negative (Negative); Hyaline Casts,Urine 15 /lpf (0-2); Ketones,Urine Negative (Negative); Leukocyte Esterase,Urine Large (Negative); Mucus,Urine Many /hpf; Nitrite,Urine Negative (Negative); PH, Urine 5.5 (5.0-8.0); Protein,Urine 1+ (Negative); RBC,Urine 6 /hpf (0-5); Specific Gravity,Urine 1.032 (1.001-1.035); Squamous Epithelial Cell,Urine 9 /hpf (0-4); Urobilinogen,Urine <2.0 mg/dL (<2.0); WBC,Urine 10 /hpf (0-5)
[2023-06-16 21:54] VITALS: TEMP 98.2
[2023-06-16 22:03] LABS: Amphetamine Screen,Urine Not Detected (NotDetected); Barbiturate Screen,Urine Not Detected (NotDetected); Benzodiazepines Screen,Urine Not Detected (NotDetected); Cocaine Screen,Urine Not Detected (NotDetected); Methadone Screen, Urine Not Detected (NotDetected); Opiate Screen,Urine Not Detected (NotDetected); Oxycodone Screen, Urine Not Detected (NotDetected); Phencyclidine Screen,Urine Not Detected (NotDetected); Tricyclic Antidepressant,Urine Not Detected (NotDetected); Urn Cannabinoid Scrn Not Detected (NotDetected)
[2023-06-16 22:17] VITALS: BP 138/94; PULSE 104
== END 2023-06-16 22:20 | disposition home or self-care (01) ==
LOC: EC 18:34
DX: F41.9 Anxiety disorder, unspecified (principal); F32.A Depression, unspecified; N39.0 Urinary tract infection, site not specified; I10 Essential (primary) hypertension; F17.290 Nicotine dependence, other tobacco product, uncomplicated; Z79.899 Other long term (current) drug therapy; Z20.822 Contact with and (suspected) exposure to COVID-19; Z88.8 Allergy status to other drugs, medicaments and biological substances
CPT/HCPCS: 80306; 81001; 81025; 82075; 87491; 87591; 87635; 99285

== ENCOUNTER 2023-11-29 15:58 | Emergency (ER) | payer OTHER ==
[2023-11-29 16:21] VITALS: TEMP 98.3
[2023-11-29] MEDS: ACETAMINOPHEN TAB 500 MG TAB PO STA (16:38)
--- NOTE | 2023-11-29 16:44 | ED ---
Female Urogenital HPI - General Chief complaint: Urogenital Stated complaint: Fall/Flank Pain Time Seen by Provider: 11/29/23 16:43 Source: patient, RN notes reviewed Mode of arrival: EMS Limitations: no limitations - History of Present Illness Initial comments: 33-year-old female presented to ER with chief complaint of dysuria. Patient is currently residing at [facility] for methamphetamine rehab. She states for the past 3 days she has been having increase in urinary frequency and dysuria. She also reports she had a fall when coming out of the shower today. She states she slipped on the wet floor. Landing on her right side. She also is reporting right hip pain. Denies any head injury, loss of consciousness or blood thinner use. Denies any dizziness, lightheadedness, chest pain, shortness of breath prior to fall. Patient denies any fevers, chills, nausea, vomiting, chest pain, shortness of breath, abdominal pain or peripheral edema. Last Menstrual Period: 11/22/23 - Related Data Previous Rx's Medication Instructions Recorded Cephalexin [Keflex] 500 mg PO Q12HR 7 Days #14 cap 06/16/23 lisinopriL 40 mg PO DAILY #30 tab 06/16/23 Cephalexin [Keflex] 500 mg PO Q6HR #40 cap 11/29/23 Allergies Allergy/AdvReac Type Severity Reaction Status Date / Time trazodone Allergy Rash/Hives Verified 06/16/23 20:06 Review of Systems ROS Statement: Those systems with pertinent positive or pertinent negative responses have been documented in the HPI. ROS Other: All systems not noted in ROS Statement are negative. Past Medical History Past Medical History: Hypertension Additional Past Medical History / Comment(s): CHRONIC PAIN IN RIGHT LEG/ankle - BROKEN AND REPAIRED WITH METAL; "Dislocated disc" w/lower back & bilat. hip pain. History of Any Multi-Drug Resistant Organisms: None Reported Past Surgical History: Orthopedic Surgery Additional Past Surgical History / Comment(s): RIGHT ANKLE/RIGHT LEG Past Anesthesia/Blood Transfusion Reactions: No Reported Reaction Past Psychological History: Anxiety, Bipolar, Depression Smoking Status: Current every day smoker, Vaper Past Alcohol Use History: Occasional Past Drug Use History: None Reported - Past Family History Father Additional Family Medical History / Comment(s): Father is in his 40s with history of bipolar and multiple personality. He is in penitentiary for an armed robbery with also history of alcohol and drug abuse. Brother(s) Additional Family Medical History / Comment(s): Patient has brothers and 2 are incarcerated area which she states they have anger management issues but she is not aware of any medical problems. Patient's 1 sister with no major medical problems that she is aware of. Mother Family Medical History: Diabetes Mellitus Additional Family Medical History / Comment(s): Mother is alive at age 55 with history of diabetes, hypertension, mental health issues. Patient does not have any children. General Exam Limitations: no limitations General appearance: alert, in no apparent distress Head exam: Present: atraumatic, normocephalic, normal inspection Respiratory exam: Present: normal lung sounds bilaterally. Absent: respiratory distress, wheezes, rales, rhonchi, stridor Cardiovascular Exam: Present: regular rate, normal rhythm, normal heart sounds. Absent: systolic murmur, diastolic murmur, rubs, gallop, clicks GI/Abdominal exam: Present: soft, normal bowel sounds. Absent: distended, tenderness, guarding, rebound, rigid Extremities exam: Present: normal inspection, full ROM, normal capillary refill. Absent: tenderness, pedal edema, joint swelling, calf tenderness Back exam: Present: normal inspection Neurological exam: Present: alert, oriented X3, CN II-XII intact Skin exam: Present: warm, dry, intact, normal color. Absent: rash Course Vital Signs 11/29/23 11/29/23 16:01 21:17 Temperature 98.3 F Pulse Rate 84 88 Respiratory 16 18 Rate Blood Pressure 138/84 136/78 O2 Sat by Pulse 97 96 Oximetry Medical Decision Making - Medical Decision Making Was pt. sent in by a medical professional or institution (, PA, LIBRARY MEDIA ASSISTANT, urgent care, hospital, or long-term...) When possible be specific @ -Patient sent by [facility] for evaluation of right hip pain and hematuria] Did you speak to anyone other than the patient for history (EMS, parent, family, police, friend...)? What history was obtained from this source @ -No Did you review nursing and triage notes (agree or disagree)? Why? @ -I reviewed and agree with nursing and triage notes Were old charts reviewed (outside hosp., previous admission, EMS record, old EKG, old radiological studies, urgent care reports/EKG's, long-term records)? Report findings @ -No old charts were reviewed Differential Diagnosis (chest pain, altered mental status, abdominal pain women, abdominal pain men, vaginal bleeding, weakness, fever, dyspnea, syncope, headache, dizziness, GI bleed, back pain, seizure, CVA, palpatations, mental health, musculoskeletal)? @ -Urinary tract infection, pyelonephritis, nephrolithiasis this list is not meant to be all-inclusive EKG interpreted by me (3pts min.). @ -None X-rays interpreted by me (1pt min.). @ -Right hip AP pelvis x-ray interpreted by me negative for acute process. CT interpreted by me (1pt min.). @ -None done U/S interpreted by me (1pt. min.). @ -None done What testing was considered but not performed or refused? (CT, X-rays, U/S, labs)? Why? @ -None What meds were considered but not given or refused? Why? @ -None Did you discuss the management of the patient with other professionals (professionals i.e. , PA, LIBRARY MEDIA ASSISTANT, lab, RT, psych nurse, manager social responsibility, still operator batch or continuous, teacher, traffic control officer, welfare case worker)? Give summary @ -No Was smoking cessation discussed for >3mins.? @ -No Was critical care preformed (if so, how long)? @ -No Were there social determinants of health that impacted care today? How? (Homelessness, low income, unemployed, alcoholism, drug addiction, transportation, low edu. Level, literacy, decrease access to med. care, snf, rehab)? @ -No Was there de-escalation of care discussed even if they declined (Discuss DNR or withdrawal of care, Hospice)? DNR status @ -No What co-morbidities impacted this encounter? (DM, HTN, Smoking, COPD, CAD, Cancer, CVA, ARF, Chemo, Hep., AIDS, mental health diagnosis, sleep apnea, morbid obesity)? @ -None Was patient admitted / discharged? Hospital course, mention meds given and route , prescriptions, significant lab abnormalities, going to OR and other pertinent info. @ -Discharge. 33-year-old female presenting to the ER with a chief complaint of dysuria. History and physical exam completed. Vitals stable. Patient in no signs acute distress and nontoxic-appearing. Urinalysis obtained significant for large blood with greater than 182 white blood cells. Due to urinary fin dings labs obtained. Labs obtained unimpressive. X-rays obtained negative for acute process. Results discussed with patient, all questions answered. Keflex prescribed. Urine sent for culture. Patient discharged back to the [facility] in stable condition. Return parameters discussed. Patient verbally expressed understanding and agreement with care plan. Case discussed with ED attending, Dr. Gonzalez. Undiagnosed new problem with uncertain prognosis? @ -No Drug Therapy requiring intensive monitoring for toxicity (Heparin, Nitro, Insulin, Cardizem)? @ -No Were any procedures done? @ -No Diagnosis/symptom? @ -UTI Acute, or Chronic, or Acute on Chronic? @ -Acute Uncomplicated (without systemic symptoms) or Complicated (systemic symptoms)? @ -Uncomplicated Side effects of treatment? @ -No Exacerbation, Progression, or Severe Exacerbation? @ -No Poses a threat to life or bodily function? How? (Chest pain, USA, DE, pneumonia, PE, COPD, DKA, ARF, appy, cholecystitis, CVA, Diverticulitis, Homicidal, Suicidal, threat to staff... and all critical care pts) @ -No - Lab Data Result diagrams: 11/29/23 20:28 11/29/23 20:28 Lab Results 11/29/23 11/29/23 11/29/23 Range/Units 17:23 17:23 20:28 WBC 10.0 (3.8-10.6) k/uL RBC 4.04 (3.80-5.40) m/uL Hgb 11.5 (11.4-16.0) gm/dL Hct 34.6 (34.0-46.0) % MCV 85.6 (80.0-100.0) fL MCH 28.6 (25.0-35.0) pg MCHC 33.3 (31.0-37.0) g/dL RDW 13.6 (11.5-15.5) % Plt Count 204 (150-450) k/uL MPV 8.3 Neutrophils % 74 % Lymphocytes % 19 % Monocytes % 4 % Eosinophils % 2 % Basophils % 0 % Neutrophils # 7.5 (1.3-7.7) k/uL Lymphocytes # 1.9 (1.0-4.8) k/uL Monocytes # 0.4 (0-1.0) k/uL Eosinophils # 0.2 (0-0.7) k/uL Basophils # 0.0 (0-0.2) k/uL Sodium (137-145) mmol/L Potassium (3.5-5.1) mmol/L Chloride (98-107) mmol/L Carbon Dioxide (22-30) mmol/L Anion Gap mmol/L BUN (7-17) mg/dL Creatinine (0.52-1.04) mg/dL Est GFR (CKD-EPI)AfAm (>60 ml/min/1.73 sqM) Est GFR (CKD-EPI)NonAf (>60 ml/min/1.73 sqM) Glucose (74-99) mg/dL Plasma Lactic Acid Brant (0.7-2.0) mmol/L Calcium (8.4-10.2) mg/dL Total Bilirubin (0.2-1.3) mg/dL AST (14-36) U/L ALT (4-34) U/L Alkaline Phosphatase (38-126) U/L Creatine Kinase (30-135) U/L Total Protein (6.3-8.2) g/dL Albumin (3.5-5.0) g/dL Urine Color Yellow Urine Appearance Turbid H (Clear) Urine pH 6.0 (5.0-8.0) Ur Specific [place] 1.021 (1.001-1.035) Urine Protein 1+ H (Negative) Urine Glucose (UA) Negative (Negative) Urine Ketones Negative (Negative) Urine Blood Large H (Negative) Urine Nitrite Negative (Negative) Urine Bilirubin Negative (Negative) Urine Urobilinogen <2.0 (<2.0) mg/dL Ur Leukocyte Esterase Large H (Negative) Urine RBC >182 H (0-5) /hpf Urine WBC >182 H (0-5) /hpf Ur Squamous Epith Cells 10 H (0-4) /hpf Urine Bacteria Few H (None) /hpf Hyaline Casts 49 H (0-2) /lpf Urine Mucus Moderate H (None) /hpf Urine HCG, Qual Not Detected (Not Detectd) 11/29/23 11/29/23 Range/Units 20:28 20:28 WBC (3.8-10.6) k/uL RBC (3.80-5.40) m/uL Hgb (11.4-16.0) gm/dL Hct (34.0-46.0) % MCV (80.0-100.0) fL MCH (25.0-35.0) pg MCHC (31.0-37.0) g/dL RDW (11.5-15.5) % Plt Count (150-450) k/uL MPV Neutrophils % % Lymphocytes % % Monocytes % % Eosinophils % % Basophils % % Neutrophils # (1.3-7.7) k/uL Lymphocytes # (1.0-4.8) k/uL Monocytes # (0-1.0) k/uL Eosinophils # (0-0.7) k/uL Basophils # (0-0.2) k/uL Sodium 139 (137-145) mmol/L Potassium 3.8 (3.5-5.1) mmol/L Chloride 110 H (98-107) mmol/L Carbon Dioxide 24 (22-30) mmol/L Anion Gap 5 mmol/L BUN 16 (7-17) mg/dL Creatinine 0.89 (0.52-1.04) mg/dL Est GFR (CKD-EPI)AfAm >90 (>60 ml/min/1.73 sqM) Est GFR (CKD-EPI)NonAf 86 (>60 ml/min/1.73 sqM) Glucose 111 H (74-99) mg/dL Plasma Lactic Acid Brant 0.7 (0.7-2.0) mmol/L Calcium 8.7 (8.4-10.2) mg/dL Total Bilirubin 0.3 (0.2-1.3) mg/dL AST 27 (14-36) U/L ALT 22 (4-34) U/L Alkaline Phosphatase 87 (38-126) U/L Creatine Kinase 149 H (30-135) U/L Total Protein 6.2 L (6.3-8.2) g/dL Albumin 3.4 L (3.5-5.0) g/dL Urine Color Urine Appearance (Clear) Urine pH (5.0-8.0) Ur Specific [place] (1.001-1.035) Urine Protein (Negative) Urine Glucose (UA) (Negative) Urine Ketones (Negative) Urine Blood (Negative) Urine Nitrite (Negative) Urine Bilirubin (Negative) Urine Urobilinogen (<2.0) mg/dL Ur Leukocyte Esterase (Negative) Urine RBC (0-5) /hpf Urine WBC (0-5) /hpf Ur Squamous Epith Cells (0-4) /hpf Urine Bacteria (None) /hpf Hyaline Casts (0-2) /lpf Urine Mucus (None) /hpf Urine HCG, Qual (Not Detectd) - Radiology Data Radiology results: report reviewed, image reviewed Disposition Clinical Impression: Urinary tract infection Disposition: HOME SELF-CARE Condition: Stable Instructions (If sedation given, give patient instructions): Urinary Tract Infection in Women (ED) Additional Instructions: Take Keflex as prescribed. Follow-up with PCP. Return to the ER for any new or worsening concerns. Prescriptions: Cephalexin [Keflex] 500 mg PO Q6HR #40 cap Is patient prescribed a controlled substance at d/c from ED?: No Referrals: Kem Bautista MD [Primary Care Provider] - 1-2 days Time of Disposition: 21:00
--- NOTE | 2023-11-29 17:50 | XR ---
EXAMINATION TYPE: XR Hip RT and AP Pelvis DATE OF EXAM: 11/29/2023 5:29 PM CLINICAL INDICATION:Female, 33 years old with history of pain; [facility] COMPARISON: None. TECHNIQUE: XR Hip RT and AP Pelvis; hip was examined in the frontal and lateral projections and a AP pelvis. FINDINGS: No evidence for acute process, joint dislocation or significant soft tissue swelling. IMPRESSION: No acute process.
[2023-11-29 18:01] LABS: Appearance,Urine Turbid (Clear); Bacteria,Urine Few /hpf; Bilirubin,Urine Negative (Negative); Blood,Urine Large (Negative); Color,Urine Yellow; Glucose,Urine (UA) Negative (Negative); Hyaline Casts,Urine 49 /lpf (0-2); Ketones,Urine Negative (Negative); Leukocyte Esterase,Urine Large (Negative); Mucus,Urine Moderate /hpf; Nitrite,Urine Negative (Negative); Protein,Urine 1+ (Negative); RBC,Urine >182 /hpf (0-5); Specific Gravity,Urine 1.021 (1.001-1.035); Squamous Epithelial Cell,Urine 10 /hpf (0-4); Urobilinogen,Urine <2.0 mg/dL (<2.0); WBC,Urine >182 /hpf (0-5)
[2023-11-29] MEDS: SODIUM CHLORIDE 0.9% 1,000 ML IV STA (18:41)
[2023-11-29 20:32] LABS: Basophils % (A) 0 %; Eosinophils # (A) 0.2 k/uL (0-0.7); Eosinophils % (A) 2 %; HCT 34.6 % (34.0-46.0); HGB 11.5 gm/dL (11.4-16.0); Lymphocytes # (A) 1.9 k/uL (1.0-4.8); Lymphocytes % (A) 19 %; MCH 28.6 pg (25.0-35.0); MCHC 33.3 g/dL (31.0-37.0); MCV 85.6 fL (80.0-100.0); Mean Platelet Volume 8.3; Monocytes # (A) 0.4 k/uL (0-1.0); Monocytes % (A) 4 %; Neutrophils # (A) 7.5 k/uL (1.3-7.7); Neutrophils % (A) 74 %; Platelet Count 204 k/uL (150-450); RBC 4.04 m/uL (3.80-5.40); RDW 13.6 % (11.5-15.5)
[2023-11-29 20:45] LABS: ALT 22 U/L (4-34); AST 27 U/L (14-36); African American GFR (CKD) >90 (>60 ml/min/1.73 sqM); Albumin 3.4 g/dL (3.5-5.0); Alkaline Phosphatase 87 U/L (38-126); Anion Gap 5 mmol/L; Blood Urea Nitrogen 16 mg/dL (7-17); Calcium 8.7 mg/dL (8.4-10.2); Carbon Dioxide 24 mmol/L (22-30); Chloride 110 mmol/L (98-107); Creatine Kinase 149 U/L (30-135); Glucose 111 mg/dL (74-99); Non-African American GFR(CKD) 86 (>60 ml/min/1.73 sqM); Potassium 3.8 mmol/L (3.5-5.1); Sodium 139 mmol/L (137-145); Total Bilirubin 0.3 mg/dL (0.2-1.3); Total Protein 6.2 g/dL (6.3-8.2)
[2023-11-29 21:55] VITALS: BP 136/78; PULSE 88; RESP 18
== END 2023-11-29 21:17 | disposition home or self-care (01) ==
LOC: EC 15:58
DX: N39.0 Urinary tract infection, site not specified (principal); M25.551 Pain in right hip; F17.290 Nicotine dependence, other tobacco product, uncomplicated; Z88.8 Allergy status to other drugs, medicaments and biological substances; W01.0XXA Fall on same level from slipping, tripping and stumbling without subsequent striking against object, initial encounter
CPT/HCPCS: 36415; 73502; 80053; 81001; 81025; 82550; 83605; 85025; 87086; 99285